=== PATIENT | male | born 1945 | race Caucasian/White ===

== ENCOUNTER 2020-06-06 13:12 | Outpatient (CLI) | payer MEDICARE, SELFPAY ==
--- NOTE | ~2020-06-06 | CT_ITS ---
EXAMINATION: CT chest wo con DATE: 06/06/2020 13:33 INDICATION: Multiple lung nodules TECHNIQUE: Computed tomography (CT) of the chest was performed without intravenous contrast. Automate d exposure control and iterative reconstruction technique were employed. Exam dose: 153.20 mGy-cm to sushila exam DLP. COMPARISON: 12/20/2019 CT chest FINDINGS: There are calcified right paratracheal lymph nodes consistent with old granulomatous diseas e. Coronary artery calcifications. Normal heart size. No pericardial or pleural effusion. No hilar or mediastinal mass lesion or lymphadenopathy. No thoracic aortic aneurysm. There is mild discoid scarring in the right upper lobe and right lower lobe. Moderately severe emphysematous changes are noted. No pulmonary infiltrate or consolidation or suspic ious pulmonary mass lesion is identified. The adrenal glands are unremarkable. IMPRESSION: Moderately severe emphysema; no suspicious pulmonary mass Reviewed, dictated and finalized at [facility]. Reviewed, dictated and finalized at location B.
== END 2020-06-06 13:13 | disposition home or self-care (01) ==
PROVIDERS: PCP Family Medicine; Visit Provider Nurse Practitioner
DX: R91.8 Other nonspecific abnormal finding of lung field (principal); J43.9 Emphysema, unspecified
CPT/HCPCS: 71250

== ENCOUNTER 2021-06-16 10:52 | Outpatient (CLI) | payer MEDICARE, SELFPAY ==
--- NOTE | ~2021-06-16 | CT_ITS ---
EXAMINATION: CT lung screening EXAM DATE: 06/16/2021 11:26 INDICATION: Personal hx of tobacco dependence. TECHNIQUE: Spiral low dose CT of the chest without contrast. Axial, coronal and sagittal images were reviewed. The dose-length product (DLP) for this examination was 180.39 mGy-cm. The exposure was t ailored according to patient size (auto mA exposure control), and iterative reconstruction (ASIR) was used as additional dose reduction technique. Comparison is made to prior examination from 06/06/2020. FINDINGS: There is moderate to severe emphysema. Moderate hyperinflation and bronchiectasis. Some li near right lower lobe scarring. There is 3 mm nodule in the left upper lobe best identified on al l image 53, unchanged consistent with noncalcified granuloma. Tracheobronchial tree is patent. Ther e is no mediastinal, hilar or axillary lymphadenopathy. There are no pleural or pericardial effusio ns. There is no pneumothorax. Heart normal in size. There is moderate coronary arterial calcifi cation, arterial sclerosis. There is hepatic steatosis. There is thoracic spondylosis without osteob lastic or osteolytic lesions identified. IMPRESSION: Lung-RADS category 2, benign appearance or behavior (<1% chance of malignancy); recommend continued LDCT screening in 1 year. Reviewed, dictated and finalized at location A.
== END 2021-06-16 10:53 | disposition home or self-care (01) ==
PROVIDERS: PCP Family Medicine; Visit Provider Nurse Practitioner
DX: Z12.2 Encounter for screening for malignant neoplasm of respiratory organs (principal); Z87.891 Personal history of nicotine dependence
CPT/HCPCS: 71271

== ENCOUNTER 2021-08-28 09:49 | Outpatient (CLI) | payer MEDICARE, SELFPAY ==
--- NOTE | ~2021-08-28 | US_ITS ---
EXAMINATION: US abdomen limited DATE: 08/28/2021 10:40 INDICATION: Other specified abnormal findings of blood chemistry TECHNIQUE: Multiple grayscale and Doppler ultrasound images of the abdomen were obtained. COMPARISON: None available FINDINGS: The head and body of the pancreas are normal. The pancreatic tail is obscured by bowel gas. The liver demonstrates increased echogenicity, heterogenous echotexture, and decreased through trans mission. No surface nodularity. Normal hepatopetal flow in the main portal vein. The gallbladder is n ormal with no abnormal wall thickening, pericholecystic fluid or stones. The normal common bile duct measures 4 mm. There was no sonographic Cuevas sign. IMPRESSION: 1. Diffuse hepatic steatosis. Reviewed, dictated and finalized at location A.
== END 2021-08-28 09:50 | disposition home or self-care (01) ==
PROVIDERS: PCP Family Medicine; Visit Provider Physician Assistant
DX: R79.89 Other specified abnormal findings of blood chemistry (principal); K76.0 Fatty (change of) liver, not elsewhere classified
CPT/HCPCS: 76705

== ENCOUNTER 2022-05-20 14:02 | Outpatient (CLI) | payer MEDICARE, SELFPAY ==
--- NOTE | 2022-05-20 | ECHO_ITS ---
Patient Info Name: Brennon Multani Age: 76 years : 1945 Gender: Male Ht: 72 in Wt: 190 lbs BSA: 2.10 m2 HR: 112 bpm BP: 133 / 78 mmHg Heart Rhythm: Sinus Rhythm Technical Quality: Fair Exam Date: 05/20/2022 2:52 PM Exam Location: [facility] Patient Status: Outpatient Admit Date: 05/20/2022 Staff Ordering Physician: [employer] Teacher: Gemini Erickson RDCS Attending Provider: SantinoMorena Exam Type: CA echo doppler color flow Study Info Indications R06.00 - Dyspnea, unspecified Complete two-dimensional, color flow and Doppler transthoracic echocardiogram is performed. Summary 1. Complete two-dimensional, color flow and Doppler transthoracic echocardiogram is performed. 2. Left ventricular systolic function is normal, estimated at 60-65%. 3. The left ventricular diastolic function is grade I diastolic dysfunction. 4. Right ventricular chamber dimension is normal. 5. The pericardium appears normal. 6. Prominent epicardial fat pad noted. Left Ventricle Left ventricular chamber dimension is normal. Left ventricular systolic function is normal, estimated at 60-65%. The left ventricular diastolic function is grade I diastolic dysfunction. Right Ventricle Right ventricular chamber dimension is normal. Left Atria Normal left atrial dimension. Right Atria Right atrial chamber dimension is normal. Aortic Valve The aortic valve is trileaflet. There is mild aortic valve sclerosis. Pulmonic Valve The pulmonic valve is not well visualized. Mitral Valve The mitral valve has normal leaflets. Tricuspid Valve The tricuspid valve leaflets are normal. Other Findings Prominent epicardial fat pad noted. Pericardium/Pleural The pericardium appears normal. Aorta The aortic root size at the sinus of Valsalva is normal. Left Ventricular Outflow Tract Name Value Normal LVOT 2D LVOT Diameter 2.1 cm LVOT Doppler LVOT Peak Gradient 5 mmHg LVOT Mean Gradient 3 mmHg LVOT VTI 19 cm LVOT VTI/AV VTI Ratio 1.2 LVOT Stroke Volume 64 ml LVOT CO 15.9 l/min LVOT CI 7.6 l/min/m2 Pulmonic Valve Name Value Normal PV Doppler PV Peak Gradient 3 mmHg Mitral Valve Name Value Normal MV Doppler MV Decel Clayton 341 cm/s2 MV PHT 53 ms MV Area (PHT)
== END 2022-05-20 14:03 | disposition home or self-care (01) ==
PROVIDERS: PCP Family Medicine; Visit Provider Nurse Practitioner
DX: R06.09 Other forms of dyspnea (principal); R91.1 Solitary pulmonary nodule
CPT/HCPCS: 93306

== ENCOUNTER 2022-07-19 10:30 | Outpatient (CLI) | payer MEDICARE, SELFPAY ==
--- NOTE | ~2022-07-19 | CT_ITS ---
EXAMINATION: CT diagnostic chest wo con DATE: 07/19/2022 11:07 INDICATION: SOLITARY NODULE OF LUNG TECHNIQUE: Computed tomography (CT) of the chest was performed without intravenous contrast. Addition al 3D reconstructions utilizing coronal maximum intensity projection (MIP) were performed. Automated exposure control and iterative reconstruction technique were employed. The dose-length product was 14 1.33 mGy-cm. COMPARISON: 06/16/2021 FINDINGS: Moderate to severe emphysema. Mild discoid atelectasis in the right lower lobe. No interval change in a few scattered <4 mm calcified and noncalcified pulmonary nodules in both lungs which along with ca lcified right hilar and mediastinal lymph nodes are likely related to old granulomatous disease. No n ew or enlarging pulmonary nodules identified. No pneumonia, pulmonary edema or pleural effusion. Hear t size is normal. No pericardial effusion. Atherosclerotic coronary artery calcification. No patholog ically enlarged thoracic lymphadenopathy. Mild thoracic spondylosis. Nodular liver surface consistent with cirrhosis. Bilateral low-attenuation renal cysts the largest measuring 3.4 cm the upper pole th e right kidney. IMPRESSION: 1. Lung-RADS category 2: Benign appearance or behavior of multiple <4 mm scattered pulmonary nodules. Continue annual screening with noncontrast low-dose chest CT in 12 months. 2. Moderate to severe emphysema. 3. Cirrhosis. Reviewed, dictated and finalized at location A. IMPRESSION: 1. Lung-RADS category 2: Benign appearance or behavior of multiple <4 mm scatte red pulmonary nodules. Continue annual screening with noncontrast low-dose ches t CT in 12 months. 2. Moderate to severe emphysema. 3. Cirrhosis.
== END 2022-07-19 10:31 | disposition home or self-care (01) ==
PROVIDERS: PCP Family Medicine; Visit Provider Nurse Practitioner
DX: R91.1 Solitary pulmonary nodule (principal); K76.0 Fatty (change of) liver, not elsewhere classified; J43.9 Emphysema, unspecified
CPT/HCPCS: 71250

== ENCOUNTER 2022-09-17 12:24 | Outpatient (CLI) | payer MEDICARE, SELFPAY ==
[2022-09-17 13:00] VITALS: PULSE 127; O2SAT 86
[2022-09-17 13:03] VITALS: PULSE 133; O2SAT 94
[2022-09-17 13:05] VITALS: PULSE 157; O2SAT 86
[2022-09-17 13:06] VITALS: PULSE 158; O2SAT 89
[2022-09-17 13:08] VITALS: PULSE 139; O2SAT 93
--- NOTE | 2022-09-17 13:35 | HOMEO2EVAL ---
Evaluation was performed at [facility] Home Oxygen Evaluation RC: Home Oxygen (O2) Evaluation Start: 09/17/22 13:31 Freq: Status: Active Protocol: RPE Activity Type Activity Date Activity User E-sign Co-sign Detail Recorded Client Recorded Date Recorded By Document 09/17/22 13:00 ELIDA [email or web address] 09/17/22 13:35 ELIDA Document 09/17/22 13:03 ELIDA [email or web address] 09/17/22 13:35 ELIDA Document 09/17/22 13:05 ELIDA [email or web address] 09/17/22 13:35 ELIDA Document 09/17/22 13:06 ELIDA [id number] 09/17/22 13:35 ELIDA Document 09/17/22 13:08 ELIDA [email or web address] 09/17/22 13:35 ELIDA 09/17/22 09/17/22 09/17/22 13:00 13:03 13:05 Home O2 Evaluation [Oxygen] -Test Phase Resting Resting Exercise -Oxygen Delivery Room Air Nasal Cannula Nasal Cannula -Oxygen Flow Rate (L/min) 3 3 [Pulse Oximetry] -Pulse Oximetry (90-100 %) 86 L 94 86 L [Pulse Rate] -Pulse Rate (60-100 beats/min) 127 H 133 H 157 H [Evaluation] -Activity Tolerance [Exercise] -Ambulation Distance (feet) -Ambulation Distance (meters) [Comments] -Home Oxygen Evaluation Comments [Charges] -Treatment Charges O2 Evaluation - Outpatient 09/17/22 09/17/22 13:06 13:08 Home O2 Evaluation [Oxygen] -Test Phase Exercise Resting -Oxygen Delivery Nasal Cannula Nasal Cannula -Oxygen Flow Rate (L/min) 35 3 [Pulse Oximetry] -Pulse Oximetry (90-100 %) 89 L 93 [Pulse Rate] -Pulse Rate (60-100 beats/min) 158 H 139 H [Evaluation] -Activity Tolerance Fair [Exercise] -Ambulation Distance (feet) 350 -Ambulation Distance (meters) 106.67 [Comments] -Home Oxygen Evaluation Comments Pt walked for approx 3 minutes. Pt requires 3 L at rest and 5 L with exertion. [Charges] -Treatment Charges
--- NOTE | 2022-09-17 13:35 | PCRCNOTE ---
Home O2 eval faxed. Pt heart rate elevated. No changes to current O2 settings, 5L with exertion. [facility]
== END 2022-09-17 12:25 | disposition home or self-care (01) ==
PROVIDERS: PCP Family Medicine; Visit Provider Nurse Practitioner
DX: J44.9 Chronic obstructive pulmonary disease, unspecified (principal)
CPT/HCPCS: 94618

== ENCOUNTER 2022-12-29 09:26 | Outpatient (CLI) | payer MEDICARE, SELFPAY ==
[2022-12-29 11:58] LABS: Basophils Absolute Auto 0.2 K/mm3 (0.0-0.1); Basophils Percent Auto 2.2 % (0.2-1.2); Eosinophils Absolute Auto 0.3 K/mm3 (0-0.3); Eosinophils Percent Auto 3.4 % (0-4.4); Hemoglobin 8.2 g/dL (14.0-18.0); Immature Granulocyte Absolute 0.03 K/mm3 (0.00-0.031); Immature Granulocyte Percent A 0.3 % (0-0.5); Lymphocytes Absolute Auto 2.03 K/mm3 (0.9-3.2); Lymphocytes Percent Auto 23.5 % (18.3-44.2); Mean Corpuscular HGB Conc 27.3 g/dl (32-36); Mean Corpuscular Hemoglobin 21.2 pg (26-34); Mean Corpuscular Volume 77.5 fl (80-100); Mean Platelet Volume 11.1 fl (7.4-10.4); Monocytes Percent Auto 11.1 % (2.6-8.5); Neutrophils Absolute Auto 5.2 K/mm3 (1.3-6.7); Neutrophils Percent Auto 59.5 % (45.5-73.1); Platelet Count Result 262 k/mm3 (150-375); Red Blood Count 3.87 M/mm3 (4.6-6.20); White Blood Count 8.7 K/mm3 (4.5-10.0)
[2022-12-29 13:08] LABS: Iron 16 ug/dL (49-181)
[2022-12-29 13:14] LABS: Anisocytosis 1+ (NORMAL); Hypochromasia 1+ (NORMAL); Ovalocytes 1+ (NORMAL); Platelet Estimate Adequate (Adequate); Schistocytes None Seen (NORMAL)
[2022-12-29 13:18] LABS: Percent Iron Saturation 4 % (20-50)
[2022-12-29 14:50] LABS: Folic Acid 9.9 ng/mL (2.76->20)
== END 2022-12-29 09:27 | disposition home or self-care (01) ==
LOC: ANHLAB 09:26
PROVIDERS: PCP Family Medicine; Visit Provider Physician Assistant
DX: D64.9 Anemia, unspecified (principal)
CPT/HCPCS: 36415; 82607; 82728; 82746; 83540; 83550; 85025

== ENCOUNTER 2023-02-15 11:11 | Outpatient (CLI) | payer MEDICARE, SELFPAY ==
[2023-02-15 11:39] LABS: Basophils Absolute Auto 0.1 K/mm3 (0.0-0.1); Basophils Percent Auto 1.7 % (0.2-1.2); Eosinophils Absolute Auto 0.3 K/mm3 (0-0.3); Eosinophils Percent Auto 4.7 % (0-4.4); Hematocrit 42.9 % (42.0-52.0); Hemoglobin 13.1 g/dL (14.0-18.0); Immature Granulocyte Absolute 0.02 K/mm3 (0.00-0.031); Immature Granulocyte Percent A 0.3 % (0-0.5); Lymphocytes Absolute Auto 1.31 K/mm3 (0.9-3.2); Lymphocytes Percent Auto 19.8 % (18.3-44.2); Mean Corpuscular HGB Conc 30.5 g/dl (32-36); Mean Corpuscular Hemoglobin 28.4 pg (26-34); Mean Corpuscular Volume 93.1 fl (80-100); Mean Platelet Volume 10.3 fl (7.4-10.4); Monocytes Absolute Auto 0.7 K/mm3 (0.1-0.6); Monocytes Percent Auto 11.2 % (2.6-8.5); Neutrophils Absolute Auto 4.1 K/mm3 (1.3-6.7); Neutrophils Percent Auto 62.3 % (45.5-73.1); Platelet Count Result 245 k/mm3 (150-375); Red Blood Count 4.61 M/mm3 (4.6-6.20); Red Cell Distribution Width 21.8 % (11.5-14.5); White Blood Count 6.6 K/mm3 (4.5-10.0)
[2023-02-15 12:07] LABS: Alanine Aminotransferase 36 U/L (6-50); Albumin Level 3.7 g/dL (3.5-5.1); Alkaline Phosphatase 301 U/L (38-126); Anion Gap 6 mmol/L (8-16); Aspartate Amino Transferase 103 U/L (17-59); Bilirubin,Total 0.9 mg/dL (0.2-1.3); Blood Urea Nitrogen 4 mg/dL (9-20); Calcium 8.4 mg/dL (8.4-10.2); Carbon Dioxide 30 mmol/L (22-30); Chloride 104 mmol/L (98-107); Estimated Glomerular Filt Rate > 60; Glucose 86 mg/dL (65-110); Potassium 4.3 mmol/L (3.4-5.0); Sodium 140 mmol/L (137-145)
[2023-02-15 12:30] LABS: Iron 62 ug/dL (49-181)
[2023-02-15 12:40] LABS: Percent Iron Saturation 17 % (20-50)
== END 2023-02-15 11:12 | disposition home or self-care (01) ==
LOC: ANHLAB 11:13
PROVIDERS: PCP Family Medicine; Visit Provider Physician Assistant
DX: D50.9 Iron deficiency anemia, unspecified (principal); K76.0 Fatty (change of) liver, not elsewhere classified
CPT/HCPCS: 36415; 80053; 82728; 83540; 83550; 85025

== ENCOUNTER 2023-05-23 12:19 | Outpatient (CLI) | payer MEDICARE, SELFPAY ==
[2023-05-23 12:37] LABS: Basophils Absolute Auto 0.1 K/mm3 (0.0-0.1); Basophils Percent Auto 1.3 % (0.2-1.2); Eosinophils Absolute Auto 0.2 K/mm3 (0-0.3); Eosinophils Percent Auto 1.8 % (0-4.4); Hematocrit 48.2 % (42.0-52.0); Hemoglobin 15.7 g/dL (14.0-18.0); Immature Granulocyte Absolute 0.02 K/mm3 (0.00-0.031); Immature Granulocyte Percent A 0.2 % (0-0.5); Lymphocytes Absolute Auto 0.73 K/mm3 (0.9-3.2); Lymphocytes Percent Auto 8.9 % (18.3-44.2); Mean Corpuscular HGB Conc 32.6 g/dl (32-36); Mean Corpuscular Hemoglobin 34.9 pg (26-34); Mean Corpuscular Volume 107.1 fl (80-100); Mean Platelet Volume 9.8 fl (7.4-10.4); Monocytes Absolute Auto 0.7 K/mm3 (0.1-0.6); Monocytes Percent Auto 8.4 % (2.6-8.5); Neutrophils Absolute Auto 6.5 K/mm3 (1.3-6.7); Neutrophils Percent Auto 79.4 % (45.5-73.1); Platelet Count Result 195 k/mm3 (150-375); Red Cell Distribution Width 13.2 % (11.5-14.5); White Blood Count 8.2 K/mm3 (4.5-10.0)
[2023-05-23 12:47] LABS: Alanine Aminotransferase 61 U/L (6-50); Alkaline Phosphatase 255 U/L (38-126); Anion Gap 4 mmol/L (8-16); Aspartate Amino Transferase 157 U/L (17-59); Bilirubin,Total 1.9 mg/dL (0.2-1.3); Blood Urea Nitrogen 8 mg/dL (9-20); Calcium 8.6 mg/dL (8.4-10.2); Carbon Dioxide 34 mmol/L (22-30); Chloride 101 mmol/L (98-107); Estimated Glomerular Filt Rate > 60; Glucose 113 mg/dL (65-110); Potassium 3.9 mmol/L (3.4-5.0); Sodium 139 mmol/L (137-145)
== END 2023-05-23 12:20 | disposition home or self-care (01) ==
LOC: ANHLAB 12:21
PROVIDERS: PCP Family Medicine; Visit Provider Physician Assistant
DX: E03.9 Hypothyroidism, unspecified (principal); D64.9 Anemia, unspecified
CPT/HCPCS: 36415; 80053; 84443; 85025

== ENCOUNTER 2023-06-01 12:38 | Outpatient (CLI) | payer MEDICARE, SELFPAY ==
--- NOTE | ~2023-06-01 | CT_ITS ---
EXAMINATION: CT diagnostic chest wo con DATE: 06/01/2023 13:00 INDICATION: SOLITARY NODULE OF LUNG TECHNIQUE: Computed tomography (CT) of the chest was performed without intravenous contrast. Addition al 3D reconstructions utilizing coronal maximum intensity projection (MIP) were performed. Automated exposure control and iterative reconstruction technique were employed. The dose-length product was 15 8.97 mGy-cm. COMPARISON: 07/19/2022 FINDINGS: Severe emphysema. Unchanged discoid atelectasis/scarring in the right lower lobe. New 5 mm left upper lobe nodule. No interval change in a few additional <4 mm calcified and noncalcified pulmonary nodul es which along with calcified mediastinal and right hilar lymph nodes are likely related to old granu lomatous disease. No pneumonia, pulmonary edema or pleural effusion. Heart size is normal. No pericar dial effusion. Atherosclerotic coronary artery calcification. Thoracic aorta is normal in caliber. No pathologically enlarged thoracic lymphadenopathy. Shrunken cirrhotic liver with nodular surface cont our. 3 cm low-attenuation cyst at the upper pole the left kidney. Mild thoracic spondylosis. IMPRESSION: 1. Lung-RADS category 3: Probably benign. Further evaluation is recommended with noncontrast low-dose chest CT in 6 months. 2. Severe emphysema. 3. Cirrhosis. Reviewed, dictated and finalized at location B. IMPRESSION: 1. Lung-RADS category 3: Probably benign. Further evaluation is recommended wit h noncontrast low-dose chest CT in 6 months. 2. Severe emphysema. 3. Cirrhosis.
== END 2023-06-01 12:39 | disposition home or self-care (01) ==
PROVIDERS: PCP Family Medicine; Visit Provider Nurse Practitioner
DX: R91.1 Solitary pulmonary nodule (principal); J43.9 Emphysema, unspecified; K74.60 Unspecified cirrhosis of liver
CPT/HCPCS: 71250

== ENCOUNTER 2023-07-01 09:09 | Outpatient (CLI) | payer MEDICARE, SELFPAY ==
[2023-07-01 09:37] LABS: Hemoglobin 16.5 g/dL (14.0-18.0); Mean Corpuscular Volume 105.9 fl (80-100); Mean Platelet Volume 9.8 fl (7.4-10.4); Platelet Count Result 149 k/mm3 (150-375); Red Blood Count 4.72 M/mm3 (4.6-6.20); Red Cell Distribution Width 12.9 % (11.5-14.5); White Blood Count 6.2 K/mm3 (4.5-10.0)
[2023-07-01 09:49] LABS: Alanine Aminotransferase 41 U/L (6-50); Alkaline Phosphatase 230 U/L (38-126); Anion Gap 6 mmol/L (8-16); Aspartate Amino Transferase 99 U/L (17-59); Bilirubin,Total 1.6 mg/dL (0.2-1.3); Blood Urea Nitrogen 10 mg/dL (9-20); Calcium 8.8 mg/dL (8.4-10.2); Carbon Dioxide 29 mmol/L (22-30); Chloride 102 mmol/L (98-107); Estimated Glomerular Filt Rate > 60; Glucose 92 mg/dL (65-110); Potassium 3.7 mmol/L (3.4-5.0); Sodium 137 mmol/L (137-145)
== END 2023-07-01 09:10 | disposition home or self-care (01) ==
LOC: ANHLAB 09:10
PROVIDERS: PCP Family Medicine; Visit Provider Family Medicine
DX: D64.9 Anemia, unspecified (principal); K76.0 Fatty (change of) liver, not elsewhere classified
CPT/HCPCS: 36415; 80053; 85027

== ENCOUNTER 2023-10-06 09:47 | Outpatient (CLI) | payer MEDICARE, SELFPAY ==
[2023-10-06 10:18] LABS: Basophils Absolute Auto 0.1 K/mm3 (0.0-0.1); Basophils Percent Auto 1.7 % (0.2-1.2); Eosinophils Absolute Auto 0.3 K/mm3 (0-0.3); Eosinophils Percent Auto 4.3 % (0-4.4); Hemoglobin 11.9 g/dL (14.0-18.0); Immature Granulocyte Absolute 0.01 K/mm3 (0.00-0.031); Immature Granulocyte Percent A 0.2 % (0-0.5); Lymphocytes Absolute Auto 1.48 K/mm3 (0.9-3.2); Lymphocytes Percent Auto 25.2 % (18.3-44.2); Mean Corpuscular HGB Conc 30.5 g/dl (32-36); Mean Corpuscular Hemoglobin 30.3 pg (26-34); Mean Corpuscular Volume 99.2 fl (80-100); Mean Platelet Volume 10.1 fl (7.4-10.4); Monocytes Absolute Auto 0.5 K/mm3 (0.1-0.6); Neutrophils Absolute Auto 3.5 K/mm3 (1.3-6.7); Neutrophils Percent Auto 59.6 % (45.5-73.1); Platelet Count Result 165 k/mm3 (150-375); Red Blood Count 3.93 M/mm3 (4.6-6.20); Red Cell Distribution Width 13.4 % (11.5-14.5); White Blood Count 5.9 K/mm3 (4.5-10.0)
== END 2023-10-06 09:48 | disposition home or self-care (01) ==
PROVIDERS: PCP Family Medicine; Visit Provider Family Medicine
DX: E03.9 Hypothyroidism, unspecified (principal); D50.9 Iron deficiency anemia, unspecified
CPT/HCPCS: 36415; 84443; 85025

== ENCOUNTER 2023-11-10 05:58 | Inpatient (IN) | payer MEDICARE, SELFPAY ==
[2023-11-10] VITALS (15 sets, daily range): BP systolic 100–128; BP diastolic 53–71; PULSE 91–117; RESP 14–22; TEMP 36.1–36.5; O2SAT 96–100; BMI 25.7
--- NOTE | ~2023-11-10 | XR_ITS ---
XR chest 1V portable 11/12/2023 10:22 Indication: Tachycardia. Dyspnea. Procedure: AP portable chest Comparison: 11/10/2023 Findings: There is stable focal airspace disease of the right mid thorax. The lungs are hyperinflated which is consistent with, but not diagnostic of chronic obstructive pulmonary disease. Heart size no rmal. Impression: 1: Stable focal airspace disease right midlung, compatible with pneumonia. Reviewed, dictated and finalized at location A. OGRAPHER APPRENTICE Impression: 1: Stable focal airspace disease right midlung, compatible with pneumonia.
--- NOTE | ~2023-11-10 | XR_ITS ---
EXAMINATION: XR chest 1V portable INDICATION: Bronchoscopy planning TECHNIQUE: Portable AP chest at 0906 hours COMPARISON: 11/14/2023 FINDINGS: A right upper extremity PICC ends with its tip in the proximal superior vena cava. There ar e patchy airspace opacities of the lung bases. No pleural effusion or pneumothorax. The cardiomediast inal silhouette is stable. IMPRESSION: 1. Patchy airspace opacities of the lung bases, consistent with atelectasis versus pneumonia. Reviewed, dictated and finalized at location D. FORM SOFTWARE ENGINEER IMPRESSION: 1. Patchy airspace opacities of the lung bases, consistent with atelectasis [place] arian pneumonia.
--- NOTE | ~2023-11-10 | XR_ITS ---
Portable chest x-ray Comparison: 11/13/2013 Clinical History: Respiratory failure Findings: There is mild patchy haziness in the right lower lobe. Underlying COPD pattern present. C ardiomediastinal silhouette is stable. Bones and soft tissues are unremarkable. Impression: Mild patchy haziness right lower lobe. Correlate for pneumonia. Underlying advanced COPD. Reviewed, dictated and finalized at location . ORATE DIRECTOR Impression: Mild patchy haziness right lower lobe. Correlate for pneumonia. Underlying advanced COPD.
--- NOTE | ~2023-11-10 | CT_ITS ---
CT of the Abdomen and Pelvis: Indication: Abdominal pain Technique: 2.5 mm axial scans were obtained through the abdomen and pelvis following intravenous adm inistration of 100 cc of Omnipaque 350. Dose reduction technique was used on this scan by utilizing a utomated exposure control and iterative reconstruction technique. The dose-length product (DLP) was 6 32.81 mGy-cm. Findings: Scans through the lung bases demonstrate moderate to advanced emphysema. There is bronchio lectasis at the right lung base. Patchy peripheral airspace consolidation could reflect atelectasis o r possibly pneumonia... Nodular contour of liver is compatible with cirrhotic change. The spleen, pancreas, gallbladder, adre nals and kidneys are within normal limits. There are atherosclerotic calcifications of the aorta. No lymphadenopathy. Small amount of abdominopelvic ascites present. No bowel obstruction or bowel wall thickening. There is no evidence to suggest acute appendicitis. Images through the pelvis were performed. There is a 2.1 cm mass arising from the superior aspect of the urinary bladder, intraluminal (axial image 139, sagittal image 78 for example).. Prostate gland a nd seminal vesicles are unremarkable. Impression: 2.1 cm intraluminal urinary bladder mass arising from the superior wall, as detailed above. This is s uspicious for bladder carcinoma until proven otherwise. Cystoscopy recommended for further evaluation . Cirrhotic change of the liver with small amount of abdominopelvic ascites. Patchy peripheral airspace consolidation at the right lung base could reflect atelectasis versus pneu monia. Correlate clinically. Underlying emphysema at the lung bases. Reviewed, dictated and finalized at location M. NLESS STEEL FINISHER Impression: 2.1 cm intraluminal urinary bladder mass arising from the superior wall, as det derrick above. This is suspicious for bladder carcinoma until proven otherwise. C ystoscopy recommended for further evaluation. Cirrhotic change of the liver with small amount of abdominopelvic ascites. Patchy peripheral airspace consolidation at the right lung base could reflect a telectasis versus pneumonia. Correlate clinically. Underlying emphysema at the lung bases.
--- NOTE | ~2023-11-10 | XR_ITS ---
EXAMINATION: XR abdomen obstructive series DATE: 11/12/2023 11:12 INDICATION: Abdominal pain and discomfort TECHNIQUE: Supine and upright views of the abdomen. FINDINGS: No prior studies for comparison. The visualized lung parenchyma is normal.. There is a nonobstructive bowel gas pattern. Gas and stool are seen throughout the colon to the level of the rectum. There is no free air. There is mild lumba r spondylosis. IMPRESSION: 1. No acute abdominal abnormality. Reviewed, dictated and finalized at location A. RY DRILLER
--- NOTE | ~2023-11-10 | XR_ITS ---
Portable chest x-ray Comparison: None Clinical History: Shortness of breath Findings: There is mild haziness at the right lung base. There is underlying COPD. Cardiomediastina l silhouette is stable. Bones and soft tissues are unremarkable. Impression: Hazy right lower lobe airspace disease, suspicious for pneumonia. Underlying COPD. Reviewed, dictated and finalized at location . HOISTER Impression: Hazy right lower lobe airspace disease, suspicious for pneumonia. Underlying COPD.
--- NOTE | ~2023-11-10 | XR_ITS ---
XR chest PICC line 11/12/2023 11:39 Indication: PICC line placement Procedure: AP portable chest Comparison: Comparison to multiple prior studies sequentially, with oldest reviewed study dated 10/28. Findings: Heart size normal. PICC line tip in the SVC. Progression of diffuse bilateral airspace dise ase which may represent edema or pneumonia. No pneumothorax. No acute osseous abnormality. Impression: 1: Interval progression of diffuse bilateral airspace disease which may represent edema or pneumonia. Reviewed, dictated and finalized at location A. SORTER Impression: 1: Interval progression of diffuse bilateral airspace disease which may represe nt edema or pneumonia.
--- NOTE | ~2023-11-10 | CT_ITS ---
EXAMINATION: CTA chest PE abdomen pel DATE: 11/12/2023 15:38 INDICATION: Respiratory failure, abdominal pain TECHNIQUE: Computed tomography angiography (CTA) of the chest was performed with 100 mL Omnipaque-350 intravenous contrast timed to evaluate the pulmonary arteries, followed by portal venous phase imagi ng of the abdomen and pelvis. Coronal maximum intensity projection 3D-reconstructions were created by the technologist. The dose-length product (DLP) was 1547.10 mGy-cm. Automated exposure control and i terative reconstruction technique were employed. COMPARISON: CT chest 06/01/2023; CT abdomen and pelvis 11/10/2023. FINDINGS: CHEST: Lung parenchyma and airways: 1.4 x 0.6 cm nodule in the distal left mainstem bronchus, not present in the prior chest CT. The remaining airways are clear. Emphysematous change. Subsegmental dependent co nsolidation in the right upper lobe. Subsegmental linear and somewhat nodular opacities in the periph eral and dependent right lower lobe. Stable medial left upper lobe nodule. Minimal dependent atelecta sis in the left lung. Pleura: Very small volume right pleural fluid, with some degree of pleural retraction adjacent to the right lung opacities. Thoracic inlet, axillae and chest wall: Right upper extremity PICC terminating in the SVC. Thoracic aorta: Mild arch calcification. Mediastinum: Right hilar lymphadenopathy. Heart and pericardium: Normal. Coronary artery calcifications: Mild. Thoracic bones: No acute osseous finding. Pulmonary arteries: Study quality: Adequate. No pulmonary emboli detected. ABDOMEN/PELVIS: Liver: Nodular liver. Biliary/Gallbladder: Mild nonspecific pericholecystic fluid. No bile duct dilation. Pancreas: Mild atrophy Spleen: Normal. Adrenals:No mass. Kidneys: No suspicious mass, obstructing stone, or hydronephrosis. Multiple bilateral simple renal cy sts. GI tract: Small duodenal lipoma. No small or large bowel dilation. Normal appendix. Mesentery/Peritoneum: Small volume ascites. No mass or free air.. Retroperitoneum: No mass. Atherosclerotic abdominal aortic and/or arterial calcifications. Pelvis: The urinary bladder is decompressed by Singletary catheter. Soft Tissues: Soft tissues and body wall unremarkable. Abdominopelvic bones: No acute osseous finding. IMPRESSION: No CT evidence of acute pulmonary embolus. 1.4 x 0.6 cm endobronchial lesion in the distal left mainstem bronchus, which is a new finding since the chest CT of 06/01/2023. Consider bronchoscopy. Subsegmental right upper lobe and right lower lobe opacities, likely atelectasis or infection, with t race right pleural effusion and right hilar lymphadenopathy. Consider follow-up CT to ensure resoluti on. Stable medial left upper lobe pulmonary nodule, recommend reassessment at the above recommended follo w-up CT. Cirrhosis. Small volume ascites. Small volume pericholecystic fluid, a nonspecific finding in the setting of chronic liver disease. The previously described bladder mass was not visualized due to an empty urinary bladder. Reviewed, dictated and finalized at location K. ICAL INFORMATION SYSTEMS DIRECTOR IMPRESSION: No CT evidence of acute pulmonary embolus. 1.4 x 0.6 cm endobronchial lesion in the distal left mainstem bronchus, which i s a new finding since the chest CT of 06/01/2023. Consider bronchoscopy. Subsegmental right upper lobe and right lower lobe opacities, likely atelectasi s or infection, with trace right pleural effusion and right hilar lymphadenopat hy. Consider follow-up CT to ensure resolution. Stable medial left upper lobe pulmonary nodule, recommend reassessment at the a nicho recommended follow-up CT. Cirrhosis. Small volume ascites. Small volume pericholecystic fluid, a nonspecific find
--- NOTE | ~2023-11-10 | XR_ITS ---
XR chest 1V portable 11/13/2023 06:26 Indication: Respiratory failure Procedure: AP portable chest Comparison: Comparison to multiple prior studies sequentially, with oldest reviewed study dated 10/28. Findings: Heart size normal. There is unchanged bibasilar airspace disease, consistent with pneumonia , superimposed on emphysema. Impression: 1: Stable bibasilar airspace disease, consistent with pneumonia. 2: Emphysema. Reviewed, dictated and finalized at location A. UCT MARKETING MANAGER Impression: 1: Stable bibasilar airspace disease, consistent with pneumonia. 2: Emphysema.
--- NOTE | 2023-11-10 06:02 | ECG_ITS ---
Measurements Intervals [place] Rate: 99 P: 75 GA: 162 QRS: -7 QRSD: 153 T: 64 QT: 417 QTc: 536 Interpretive Statements SINUS RHYTHM RIGHT BUNDLE BRANCH BLOCK [120+ ms QRS DURATION, UPRIGHT V1, 40+ ms S IN I/aVL/V4/V5/V6] ABNORMAL ECG NO PREVIOUS ECG AVAILABLE FOR COMPARISON Electronically Signed On 11-10-2023 14:01:47 MANUSCRIPT EDITOR by Ulysses Cool M.D.
[2023-11-10 06:18] LABS: Basophils Absolute Auto 0.1 K/mm3 (0.0-0.1); Eosinophils Absolute Auto 0.2 K/mm3 (0-0.3); Eosinophils Percent Auto 1.6 % (0-4.4); Hemoglobin 12.5 g/dL (14.0-18.0); Immature Granulocyte Absolute 0.04 K/mm3 (0.00-0.031); Immature Granulocyte Percent A 0.4 % (0-0.5); Lymphocytes Absolute Auto 1.12 K/mm3 (0.9-3.2); Lymphocytes Percent Auto 11.4 % (18.3-44.2); Mean Corpuscular HGB Conc 31.3 g/dl (32-36); Mean Corpuscular Hemoglobin 30.9 pg (26-34); Mean Platelet Volume 10.8 fl (7.4-10.4); Monocytes Absolute Auto 0.8 K/mm3 (0.1-0.6); Monocytes Percent Auto 7.8 % (2.6-8.5); Neutrophils Absolute Auto 7.6 K/mm3 (1.3-6.7); Neutrophils Percent Auto 77.8 % (45.5-73.1); Platelet Count Result 463 k/mm3 (150-375); Red Blood Count 4.04 M/mm3 (4.6-6.20); Red Cell Distribution Width 17.4 % (11.5-14.5); White Blood Count 9.8 K/mm3 (4.5-10.0)
--- NOTE | 2023-11-10 06:19 | ED.GENADULT ---
HPI - General Adult General Chief complaint: GI Bleed <Brando Ty MD - Last Filed: 11/10/23 06:21> Stated complaint: Tarry stools <Brando Ty MD - Last Filed: 11/10/23 06:21> Time Seen by Provider: 11/10/23 06:08 <Brando Ty MD - Last Filed: 11/10/23 06:21> History of Present Illness HPI narrative: patient is a 78-year-old gentleman who presents emergency department with chief complaint of black tarry stools. Patient reports that he had several very loose bowel movements that he had difficulty controlling and reports that they are very black patient reports he has had problems with anemia and reports that he is not on any blood thinners denies being on anti-platelet therapy other than baby aspirin. Patient states that he has history of COPD and is normally on 5 L of oxygen <Brando Ty MD - Last Filed: 11/10/23 06:21> Related Data Home medications: Home Medications Medication Instructions Recorded Confirmed aspirin 81 mg tablet,delayed 81 mg PO DAILY 12/11/19 10/10/23 release <Brando Ty MD - Last Filed: 11/10/23 06:21> Allergies/adverse reactions: Allergies Allergy/AdvReac Type Severity Reaction Status Date / Time No Known Allergies Allergy Verified 10/10/23 11:13 <Brando Ty MD - Last Filed: 11/10/23 06:21> Review of Systems Review of Systems: A 10 system review of systems was completed on the patient and is negative except for what is stated in the HPI. Nursing and ancillary documentation was reviewed. <Brando Ty MD - Last Filed: 11/10/23 06:21> [facility] Past Medical History Medical History: Medical History Iron deficiency anemia Supplemental oxygen dependent <Brando Ty MD - Last Filed: 11/10/23 06:21> Family History Family History: Family History Mother Carcinoma of colon <Brando yT MD - Last Filed: 11/10/23 06:21> Social History Social History: Social History Social History: Smoking packs per day: 2 Smoking cigarettes per day: 40.0 Years smoked: 50 Smoking pack-years: 100.00 Smoking status: Smoker, status unknown (Pt still vapes) Tobacco type: cigarettes and e-cigarettes/vaping Second hand tobacco smoke exposure: No Smoking end date: 11/28/11 Additional smoking assessment comments: Pt is still vaping. Alcohol intake: current Drinks per week: 14 Alcohol use details: Pt just drinks Whiskey. 7 shots a day, throughout the day. Substance use: never Substance use type: does not use Lack of Transportation: No Lack of Food: Never True Current Housing: I Have Housing Concerned About Future Housing: No Difficulty Paying Gas/Electric Bills: No Difficulty Paying for Meds: No Currently Unemployed: YES Education: Decline to Answer Difficulty w/ Childcare or Family Care: No Living arrangements: with family Occupation/Education: retired Gender identity (if verbalized by the patient): Male Sexual Orientation (if Verbalized by the Patient): Straight or Heterosexual <Brando Ty MD - Last Filed: 11/10/23 06:21> Exam Narrative: GENERAL: Well-appearing, well-nourished, and in no acute distress. HEAD: Normocephalic, atraumatic. EYES: PERRLA and EOMI. ENT: Nares clear, no rhinorrhea or epistaxis. Mucous membranes moist. NECK: Supple. CHEST: Clear to auscultation. No respiratory distress. HEART: Regular rate and rhythm. No murmur heard. Normal peripheral pulses. ABDOMEN: Soft, tenderness to palpation of the left lower quadrant, nondistended, normal active bowel sounds. : Stool is black and guaiac positive EXTREMITIES: Normal range of motion. No edema. SKIN
[2023-11-10 06:29] LABS: INR 1.2
[2023-11-10 06:30] LABS: Partial Thromboplastin Time 42.7 SECONDS (22.3-36.8)
[2023-11-10 06:34] LABS: Alanine Aminotransferase 63 U/L (6-50); Albumin Level 3.3 g/dL (3.5-5.1); Alkaline Phosphatase 282 U/L (38-126); Anion Gap 15 mmol/L (8-16); Aspartate Amino Transferase 197 U/L (17-59); Bilirubin,Total 1.8 mg/dL (0.2-1.3); Blood Urea Nitrogen 8 mg/dL (9-20); Calcium 8.1 mg/dL (8.4-10.2); Carbon Dioxide 28 mmol/L (22-30); Chloride 93 mmol/L (98-107); Estimated CRCL calculation 61 ml/min; Estimated Glomerular Filt Rate > 60; Glucose 104 mg/dL (65-110); Potassium 2.8 mmol/L (3.4-5.0); Sodium 136 mmol/L (137-145)
[2023-11-10] MEDS: SODIUM CHLORIDE 0.9% IV 1,000 ML 999 ML IV CONT (07:15)
[2023-11-10] MEDS: PANTOPRAZOLE SODIUM IV 40 MG VIAL IV PUSH (07:19)
[2023-11-10] MEDS: KCL 20 MEQ/SW 100 ML 100 ML 50 MEQ IVPB (08:09)
--- NOTE | 2023-11-10 11:30 | PC.NURSE ---
Clear liquid diet lunch ordered for patient
--- NOTE | 2023-11-10 12:51 | PM.IMHP ---
H&P: HPI History of Present Illness Date/Time: 11/10/23 12:50 Chief Complaint: Dark stools. Narrative: This is a pleasant 78-year-old male with history of alcohol abuse (1/5 of whiskey a day), iron deficiency anemia, gastroesophageal reflux disease, cirrhotic changes of the liver noted on CT with history of reactive hepatitis C screening, chronic obstructive pulmonary disease on oxygen, hypothyroidism, hypertension, and hyperlipidemia who presented to the emergency department via EMS from home for evaluation of dark stools. The patient provides the following history. He reports multiple episodes of dark tarry stools each day for the last several days. Several times he has been incontinent of stool as it seems to come on quite rapidly. He is otherwise feeling in his usual state of health which is not great. He is chronically on 5 L nasal cannula and has chronic dyspnea with minimal exertion. He denies syncope, near syncope, chest pain, pleuritic pain, epigastric and abdominal pain, hematemesis, bloating, and belching. He takes a baby aspirin daily but denies NSAID use. No known history of peptic ulcers. He drinks heavily as detailed above. Review of Systems Review of Systems: Twelve systems were reviewed. No fever, chills, or sweats. Denies cold and flu symptoms. Endorses chronic smoker's cough which is unchanged. Denies sick contacts. No history of alcohol withdrawal symptoms or seizure. Denies hematuria. Except as documented, all other systems were reviewed and are negative. [facility] Past Medical History Medical History (Updated 11/10/23 @ 18:46 by Roselia Brewer PA-C) Alcohol abuse Chronic obstructive pulmonary disease 100+ pack-year history. Cirrhosis Cirrhotic changes of the liver noted on CT. Hepatitis C Hypothyroidism Iron deficiency anemia Mixed hyperlipidemia Supplemental oxygen dependent Surgical History Surgical History History of colonoscopy with polypectomy History of right inguinal hernia repair Family History Family History Mother Carcinoma of colon Social History Social History (Updated 11/10/23 @ 18:38 by Roselia Brewer PA-C) Social History: Surrogate medical decision maker: Anisa Larad, daughter. Code status: Full code. Smoking packs per day: 2 Smoking cigarettes per day: 40.0 Years smoked: 50 Smoking pack-years: 100.00 Smoking status: Former smoker Second hand tobacco smoke exposure: No Additional smoking assessment comments: Pt is still vaping. Alcohol intake: never Drinks per week: 3 Alcohol use details: A 5th of whiskey a day. Substance use: never Substance use type: does not use Lack of Transportation: No Lack of Food: Never True Current Housing: I Have Housing Concerned About Future Housing: No Difficulty Paying Gas/Electric Bills: No Difficulty Paying for Meds: No Currently Unemployed: No Education: High School Diploma/GED Difficulty w/ Childcare or Family Care: No Living arrangements: alone Additional living arrangements comments: . Lives alone in [place]. Occupation/Education: retired Additional occupation/education comments: Retired from [employer]. Spiritual care concerns: No Meds Home Medications and Allergies Home Medications Medication Instructions Recorded Confirmed Type eszopiclone 3 mg tablet 3 mg HS 11/10/23 11/10/23 History famotidine 40 mg tablet 40 mg DAILY 11/10/23 11/10/23 History ferrous sulfate 325 mg (65 mg 325 mg EVERY OTHER DAY 11/10/23 11/10/23 History iron) tablet fluticasone fur. 100 mcg-umeclid 1 ea DAILY 11/10/23 11/10/23 History 62.5 mcg-vilant 25 mcg inhalat.powder (Trelegy Ellipta) levothyroxine 88 mcg tablet 88 mcg DAILY 11/10/23 11/10/23 History rosuvastatin 10 mg tablet 10 mg DAILY 11/10/23 11/10/23 History Allergies Allergy/AdvR
--- NOTE | 2023-11-10 13:30 | PC.NURSE ---
LILLIANA Abreu called for report on pt. States room is ready and he can come up to the floor.
--- NOTE | 2023-11-10 13:45 | ADMGEN ---
This patient, Brennon Multani, was admitted to Medical Room 251-01. Patient/family oriented to hospital policies and general routines including ID bracelet, bed and alarms, visiting hours, pain management, procedures, bathroom and other care routines, personal items, smoking policy, room service/diet, and visiting hours. Information on how to activate the Rapid Response Team has been discussed. Patient/Family are encouraged to report perceived risks to care and to ask questions if they do not understand what they are told or what they should do.
[2023-11-10] MEDS: THIAMINE HCL 200 MG/2 ML VIAL 100 MG IV PUSH (14:43)
[2023-11-10 14:51] LABS: Hemoglobin 11.3 g/dL (14.0-18.0)
[2023-11-10 15:00] LABS: Magnesium 2.2 mg/dL (1.6-2.3); Potassium 3.2 mmol/L (3.4-5.0)
--- NOTE | 2023-11-10 15:07 | WPDGICN ---
Assessment and Plan Assessment and plan (1) Melena: Code(s): K92.1 - Melena Status: Acute Assessment and Plan: will proceed with egd, differential include gastritis/esophagitis, ulcers or even varices since has new diagnosis of cirrhosis iv protonix (2) Acute upper GI bleed: Code(s): K92.2 - Gastrointestinal hemorrhage, unspecified Status: Acute Assessment and Plan: egd tomorrow (3) Acute on chronic blood loss anemia: Code(s): D62 - Acute posthemorrhagic anemia Status: Acute Assessment and Plan: also had incontinence he has been dealing with anemia and received iron for few months will do colonoscopy tomorrow (case discussed with daughter at bedside) (4) Cirrhosis: Code(s): K74.60 - Unspecified cirrhosis of liver Status: Acute Assessment and Plan: he is an alcoholic and apparently also with HCV in the past- will repeat HCV RNA, if positive then we can start treatment as outpatient obviously he needs to stop drinking thiamine, will need nutrition support after scopes (5) Transaminitis: Code(s): R74.01 - Elevation of levels of liver transaminase levels Status: Acute Assessment and Plan: new diagnosis if cirrhosis and alcohol use monitor (6) Hypokalemia: Code(s): E87.6 - Hypokalemia Status: Acute Assessment and Plan: repleting (7) Alcohol abuse: Code(s): F10.10 - Alcohol abuse, uncomplicated Status: Acute (8) Hepatitis C: Code(s): B19.20 - Unspecified viral hepatitis C without hepatic coma Status: Acute Assessment and Plan: hcv rna pending (9) Chronic obstructive pulmonary disease: Code(s): J44.9 - Chronic obstructive pulmonary disease, unspecified Status: Acute GI Consult Note Consult date/time: 11/10/23 15:07 Reason for consult: melena, anemia, cirrhosis HPI: Brennon Multani is a 78 year old male with h/o copd, gerd and anemia using iron for few months, for last 10 days with dyspepsia and some nausea but last 2 days had incontinence and noticed black tarry stools, hgb 11 from 16 on 06/2023 but earlier this year hgb lower 8-9 (started using iron), Also had hypokalemia k 2.8, elevated liver enzymes bili 1.8, ast/alt ratio >2, he drinks about 1/2 fifth for years. He denies history of liver disease but I found in the records that had HCV + and he says that was never treated. CT scan reviewed, had 2.1 cm intraluminal urinary bladder mass arising from the superior wall, as detailed above. This is suspicious for bladder carcinoma until proven otherwise. Cirrhotic change of the liver with small amount of abdominopelvic ascites. Patchy peripheral airspace consolidation at the right lung base could reflect atelectasis versus pneumonia. Admitted to floor, started on iv protonix and urology consult. He says that months ago noted one time small amount of blood in urine. Had colonoscopy 2016 with polyps, never had egd. Review of Systems Constitutional: Constitutional: Reports fatigue Eyes: Eyes: Denies blurry vision ENT: Comments: + hearing aids Cardiovascular: Cardiovascular: Denies chest pain Respiratory: Respiratory: Denies cough Gastrointestinal: Comments: melena Genitourinary: Comments: hematuria months ago Musculoskeletal: Musculoskeletal: Denies arthralgias Integumentary/Breasts: Skin/Breast: Denies rash Neurologic: Denies Abnormal speech present Psychiatric: Psychiatric: Denies confusion [facility] Past Medical History Medical History (Updated 11/10/23 @ 15:15 by Aaron Jackson MD) Acute on chronic blood loss anemia Alcohol abuse Chronic obstructive pulmonary disease 100+ pack-year history. Cirrhosis Hepatitis C Hypothyroidism Iron deficiency anemia Mixed hyperlipidemia Supplemental oxygen dependent Surgical History Surgical History History of c
--- NOTE | 2023-11-10 15:37 | WPDURCON ---
Assessment and Plan Assessment and plan (1) Mass of urinary bladder: Code(s): N32.89 - Other specified disorders of bladder Status: Acute Assessment and Plan: Will plan flexible cystoscopy at time of GI evaluation tomorrow Urology Consult Note HPI Date Seen: 11/10/23 Requesting Physician: Deja Hernandez DO Primary Care Provider: Guicho Edgar MD Consult Narrative Narrative: Brennon Multani is a 78 year old male, not previously seen in our office, admitted with dark tarry stools, other extensive medical problems (including alcoholic cirrhosis). Although he has not had any voiding symptoms or hematuria a CT scan the abdomen pelvis with contrast is suggestive of a neoplasm growing from the anterior bladder wall was upper urinary tracts were otherwise normal. Review of Systems Cardiovascular: Cardiovascular: Denies chest pain, Denies lightheadedness, Denies palpitations and Denies dyspnea Respiratory: Respiratory: Denies dyspnea Gastrointestinal: Gastrointestinal: Reports melena, Denies diarrhea, Denies nausea and Denies vomiting Genitourinary: Genitourinary: Denies hematuria and Denies dysuria Endocrine: Endocrine: Denies palpitations [facility] Past Medical History Medical History (Updated 11/10/23 @ 15:15 by Aaron Jackson MD) Acute on chronic blood loss anemia Alcohol abuse Chronic obstructive pulmonary disease 100+ pack-year history. Cirrhosis Hepatitis C Hypothyroidism Iron deficiency anemia Mixed hyperlipidemia Supplemental oxygen dependent Surgical History Surgical History History of colonoscopy with polypectomy History of right inguinal hernia repair Family History Family History Mother Carcinoma of colon Social History Social History (Updated 11/10/23 @ 13:02 by Roselia Brewer PA-C) Social History: Surrogate medical decision maker: Code status: Full code. Smoking packs per day: 2 Smoking cigarettes per day: 40.0 Years smoked: 50 Smoking pack-years: 100.00 Smoking status: Former smoker Second hand tobacco smoke exposure: No Additional smoking assessment comments: Pt is still vaping. Alcohol intake: never Drinks per week: 3 Alcohol use details: A 5th of whiskey a day. Substance use: never Substance use type: does not use Lack of Transportation: No Lack of Food: Never True Current Housing: I Have Housing Concerned About Future Housing: No Difficulty Paying Gas/Electric Bills: No Difficulty Paying for Meds: No Currently Unemployed: No Education: High School Diploma/GED Difficulty w/ Childcare or Family Care: No Living arrangements: alone Additional living arrangements comments: . Lives alone in [place]. Occupation/Education: retired Spiritual care concerns: No Meds Home Medications and Allergies Home Medications Medication Instructions Recorded Confirmed Type eszopiclone 3 mg tablet 3 mg HS 11/10/23 11/10/23 History famotidine 40 mg tablet 40 mg DAILY 11/10/23 11/10/23 History ferrous sulfate 325 mg (65 mg 325 mg EVERY OTHER DAY 11/10/23 11/10/23 History iron) tablet fluticasone fur. 100 mcg-umeclid 1 ea DAILY 11/10/23 11/10/23 History 62.5 mcg-vilant 25 mcg inhalat.powder (Trelegy Ellipta) levothyroxine 88 mcg tablet 88 mcg DAILY 11/10/23 11/10/23 History rosuvastatin 10 mg tablet 10 mg DAILY 11/10/23 11/10/23 History Allergies Allergy/AdvReac Type Severity Reaction Status Date / Time No Known Allergies Allergy Verified 11/10/23 11:18 Vital Signs Vital Signs - 24 hr 11/10/23 05:59 11/10/23 09:00 11/10/23 08:00 Temperature 97.7 F Pulse Rate 117 H 95 93 Respiratory Rate 14 14 16 Blood Pressure 112/71 111/61 119/67 Pulse Oximetry 100 100 97 Oxygen Delivery Nasal Cannula Oxygen Flow Rate 6.0 11/10/23 07:30 11/10/23 0
[2023-11-10] MEDS: BISACODYL 5 MG TABLET EC 20 MG PO (16:05)
[2023-11-10] MEDS: polyethylene glycoL 3350 238 GM BOTTLE PO (16:05)
[2023-11-10] MEDS: IPRATROPIUM BR 0.02% INH SOLN 0.5 MG/2.5 ML VIAL 1.5 MG INHALATION (19:15)
[2023-11-10] MEDS: ALBUTEROL SULFATE NEB 2.5 MG/3 ML INH INHALATION (19:15)
[2023-11-10] MEDS: POTASSIUM CHLORIDE 20 MEQ ER TABLET PO (21:09)
[2023-11-10 21:27] LABS: Hematocrit 38.1 % (42.0-52.0)
[2023-11-11] VITALS (14 sets, daily range): BP systolic 102–120; BP diastolic 54–75; PULSE 87–106; RESP 16–22; TEMP 36.3–36.7; O2SAT 96–100
[2023-11-11] MEDS: MAGNESIUM CITRATE 300 ML BTL PO (02:15)
[2023-11-11 03:02] LABS: Basophils Absolute Auto 0.1 K/mm3 (0.0-0.1); Basophils Percent Auto 1.1 % (0.2-1.2); Eosinophils Absolute Auto 0.2 K/mm3 (0-0.3); Eosinophils Percent Auto 3.2 % (0-4.4); Hematocrit 35.5 % (42.0-52.0); Hemoglobin 11.1 g/dL (14.0-18.0); Immature Granulocyte Absolute 0.02 K/mm3 (0.00-0.031); Immature Granulocyte Percent A 0.3 % (0-0.5); Lymphocytes Absolute Auto 0.99 K/mm3 (0.9-3.2); Lymphocytes Percent Auto 15.2 % (18.3-44.2); Mean Corpuscular HGB Conc 31.3 g/dl (32-36); Mean Corpuscular Hemoglobin 30.8 pg (26-34); Mean Corpuscular Volume 98.6 fl (80-100); Mean Platelet Volume 10.7 fl (7.4-10.4); Monocytes Absolute Auto 0.6 K/mm3 (0.1-0.6); Monocytes Percent Auto 8.6 % (2.6-8.5); Neutrophils Absolute Auto 4.7 K/mm3 (1.3-6.7); Neutrophils Percent Auto 71.6 % (45.5-73.1); Platelet Count Result 399 k/mm3 (150-375); Red Cell Distribution Width 17.5 % (11.5-14.5); White Blood Count 6.5 K/mm3 (4.5-10.0)
[2023-11-11 03:06] LABS: INR 1.3; Prothrombin Time 17.1 Seconds (11.1-14.7)
[2023-11-11 03:06] LABS: Anion Gap 5 mmol/L (8-16); Blood Urea Nitrogen 6 mg/dL (9-20); Carbon Dioxide 33 mmol/L (22-30); Chloride 98 mmol/L (98-107); Potassium 2.6 mmol/L (3.4-5.0); Sodium 136 mmol/L (137-145)
[2023-11-11 03:07] LABS: Alanine Aminotransferase 51 U/L (6-50); Albumin Level 2.7 g/dL (3.5-5.1); Alkaline Phosphatase 236 U/L (38-126); Aspartate Amino Transferase 129 U/L (17-59); Estimated CRCL calculation 85 ml/min; Estimated Glomerular Filt Rate > 60; Glucose 105 mg/dL (65-110); Magnesium 2.1 mg/dL (1.6-2.3)
[2023-11-11] MEDS: POTASSIUM CHLORIDE INJ 40 MEQ in SODIUM CHLORIDE 0.9% IV 500 ML 130 MEQ IVPB (03:47)
[2023-11-11] MEDS: LEVOTHYROXINE SODIUM 88 MCG TABLET BY MOUTH (05:45)
--- NOTE | 2023-11-11 06:28 | WPDHPUPDATE1 ---
History and Physical Update Update Date/Time: 11/11/23 06:28 History and Physical has been reviewed, including an updated exam of the patient. There are NO changes in the patient's condition. Risks, benefits, and alternatives have been discussed and questions answered. Patient agrees to proceed with procedure.
[2023-11-11 07:00] LABS: Hematocrit 35.8 % (42.0-52.0); Hemoglobin 11.2 g/dL (14.0-18.0)
[2023-11-11] MEDS: THIAMINE HCL 100 MG TABLET PO (08:36)
[2023-11-11] MEDS: FOLIC ACID 1 MG TABLET PO (08:36)
[2023-11-11] MEDS: PANTOPRAZOLE SODIUM IV 40 MG VIAL IV PUSH (08:37)
[2023-11-11] MEDS: POTASSIUM CHLORIDE INJ 40 MEQ in SODIUM CHLORIDE 0.9% IV 500 ML 110 MEQ IVPB (09:45)
--- NOTE | 2023-11-11 10:45 | PC.NURSE ---
To GI Lab per bed, IV left forearm. Report given to Willis TIJERINA.
--- NOTE | 2023-11-11 11:07 | WPDANESEPPF ---
Anes - Initial Pre Proc Eval Procedure: Operation Date: 11/11/23 15:30 Proposed Procedures p Esophagogastroduodenoscopy & Colonoscopy - Aaron Jackson MD s Flexible Cystoscopy - Romulo Null MD Date/Time: 11/11/23 11:07 Surgeon: Deja Hernandez DO Pre Op Diagnosis: melena,upper,gi bleed,urinary bladder mass Patient Data Age: 78 Gender: M Height: 1.83 m Weight: 86 kg Last Vital Signs Temp 36.7 C 11/11/23 05:04 Pulse 106 H 11/11/23 05:04 Resp 18 11/11/23 05:04 BP 109/65 11/11/23 05:04 Pulse Ox 98 11/11/23 05:04 O2 Del Method Nasal Cannula 11/10/23 20:00 O2 Flow Rate 2 11/10/23 20:00 Allergies Allergy/AdvReac Type Severity Reaction Status Date / Time No Known Allergies Allergy Verified 11/11/23 11:06 Home Medications Medication Instructions Recorded Confirmed Type eszopiclone 3 mg tablet 3 mg HS 11/10/23 11/11/23 History famotidine 40 mg tablet 40 mg DAILY 11/10/23 11/11/23 History ferrous sulfate 325 mg (65 mg 325 mg EVERY OTHER DAY 11/10/23 11/11/23 History iron) tablet fluticasone fur. 100 mcg-umeclid 1 ea DAILY 11/10/23 11/11/23 History 62.5 mcg-vilant 25 mcg inhalat.powder (Trelegy Ellipta) levothyroxine 88 mcg tablet 88 mcg DAILY 11/10/23 11/11/23 History rosuvastatin 10 mg tablet 10 mg DAILY 11/10/23 11/11/23 History Laboratory Tests 11/10/23 11/10/23 11/11/23 14:35 20:29 02:29 WBC RBC Hgb 11.3 L g/dL 12.0 L g/dL (14.0-18.0) (14.0-18.0) Hct 36.0 L % 38.1 L % (42.0-52.0) (42.0-52.0) MCV MCH MCHC RDW Plt Count MPV Immature Gran % (Auto) Neut % (Auto) Lymph % (Auto) [place] % (Auto) Eos % (Auto) Baso % (Auto) Lymph # (Auto) [place] # (Auto) Eos # (Auto) Baso # (Auto) Abs Immat Gran (auto) Absolute Neuts (auto) Absolute Nucleated RBC Nucleated RBC % PT INR APTT Sodium 136 L mmol/L (137-145) Potassium 3.2 L mmol/L 2.6 L* mmol/L (3.4-5.0) (3.4-5.0) Chloride 98 mmol/L (98-107) Carbon Dioxide 33 H mmol/L (22-30) Anion Gap 5 L mmol/L (8-16) BUN 6 L mg/dL (9-20) Creatinine 0.70 mg/dL (0.7-1.3) Estim Creat Clear Calc 85 ml/min Estimated GFR > 60 (59 - ) Glucose 105 mg/dL (65-110) Calcium 8.0 L mg/dL (8.4-10.2) Magnesium 2.2 mg/dL 2.1 mg/dL (1.6-2.3) (1.6-2.3) Total Bilirubin 2.0 H mg/dL (0.2-1.3) AST 129 H U/L (17-59) ALT 51 H U/L (6-50) Alkaline Phosphatase 236 H U/L (38-126) Total Protein 6.0 L g/dL (6.3-8.2) Albumin 2.7 L g/dL (3.5-5.1) HCV RNA (PCR) IUs/ml Pending HCV RNA PCR log IUs/ml Pending Hep C Genotype (PCR) Pending 11/11/23 11/11/23 02:30 06:54 WBC 6.5 K/mm3 (4.5-10.0) RBC 3.60 L M/mm3 (4.6-6.20) Hgb 11.1 L g/dL 11.2 L g/dL (14.0-18.0) (14.0-18.0) Hct 35.5 L % 35.8 L % (42.0-52.0) (42.0-52.0) MCV 98.6 fl (80-100) MCH 30.8 pg (26-34) MCHC 31.3 L g/dl (32-36) RDW 17.5 H % (11.5-14.5) Plt Count 399 H k/mm3 (150-375) MPV 10.7 H fl (7.4-10.4) Immature Gran % (Auto) 0.3 % (0-0.5) Neut % (Auto) 71.6 % (45.5-73.1) Lymph % (Auto) 15.2 L % (18.3-44.2) [place] % (Auto) 8.6 H % (2.6-8.5) Eos % (Auto) 3.2 % (0-4.4) Baso % (Auto) 1.1 % (0.2-1.2) Lymph # (Auto) 0.99 K/mm3 (0.9-3.2) [place] # (Auto) 0.6 K/mm3 (0.1-0.6) Eos # (Auto) 0.2 K/mm3 (0-0.3) Baso # (Auto) 0.1 K/mm3 (0.0-0.1) Abs Immat G
[2023-11-11] MEDS: LACTATED RINGERS 1,000 ML 150 ML IV CONT (11:12)
--- NOTE | 2023-11-11 11:29 | SUR.OPER ---
dr diaz did a flex cysto, started at 1126 and ended at 1128.
[2023-11-11] MEDS: LIDOCAINE HCL 2% GEL UROJET 10 ML PKG MUCOUS MEM (11:42)
--- NOTE | 2023-11-11 11:42 | W.PM.PROC2 ---
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 After the uneventful induction systemic sedation 2% lidocaine is injected in his urethra. Flexible cystoscopy was undertaken a 16 F flexible cystoscope. He has moderate lateral lobe hyperplasia with no median lobe enlargement of the prostate. Bladder was minimally trabeculated. There was a papillary urothelial neoplasm in the dome measuring approximately 2.5 cm. The remainder of the bladder mucosa is without hyperemia. Has a single orthotopic ureteral orifice Urine Output 125 Drains No Packing No Pathology None sent Complications No immediate complications Condition Stable
--- NOTE | 2023-11-11 11:43 | SUR.OPER ---
EGD ENDED AT 1137, COLONOSCOPY STARTED AT 1142
--- NOTE | 2023-11-11 12:37 | PM.IMPN ---
Progress Note: A&P Assessment and Plan (1) Melena: Code(s): K92.1 - Melena Status: Acute Assessment and Plan: Hemoglobin stable 11 Scheduled for colon exam (2) Acute blood loss anemia: Code(s): D62 - Acute posthemorrhagic anemia Status: Acute Assessment and Plan: Secondary to above. Trend H&H and transfuse if indicated. (3) Mass of urinary bladder: Code(s): N32.89 - Other specified disorders of bladder Status: Acute Assessment and Plan: Incidental 2.1 cm urinary bladder mass arising from the superior while noted on CT Urology consulted . (4) Abnormal chest x-ray: Code(s): R93.89 - Abnormal findings on diagnostic imaging of other specified body structures Status: Acute Assessment and Plan: Chest x-ray and CT scan shows haziness in the right lung. He has a chronic smoker's cough which is unchanged. Repeat xray continue antibiotics (5) Hypokalemia: Code(s): E87.6 - Hypokalemia Status: Acute Assessment and Plan: Potassium replaced in ED. Repeat potassium and magnesium level pending. (6) Alcohol abuse: Code(s): F10.10 - Alcohol abuse, uncomplicated Status: Acute Assessment and Plan: Patient reports drinking a 5th of whiskey a day. Denies history of alcohol withdrawal seizures. Initiate CIWA protocol and supplement thiamine. (7) Iron deficiency anemia: Code(s): D50.9 - Iron deficiency anemia, unspecified Status: Acute Assessment and Plan: Recent iron studies noted. Continue ferrous sulfate 325 mg. (8) Transaminitis: Code(s): R74.01 - Elevation of levels of liver transaminase levels Status: Acute Assessment and Plan: Secondary to ongoing alcohol abuse and possible cirrhosis given cirrhotic changes noted on CT. Noted that he was reactive for hepatitis-C some years back but never treated. Dr. Silva consulted. Continue to monitor LFTs. (9) Cirrhosis: Code(s): K74.60 - Unspecified cirrhosis of liver Status: Acute Assessment and Plan: Cirrhotic changes of liver noted on CT today. Does not appear acutely decompensated. Coags are slightly prolonged however. (10) Hypothyroidism: Code(s): E03.9 - Hypothyroidism, unspecified Status: Acute Assessment and Plan: Recent TSH was within normal limits. Continue levothyroxine. (11) Chronic obstructive pulmonary disease: Code(s): J44.9 - Chronic obstructive pulmonary disease, unspecified Status: Acute Assessment and Plan: Some wheezing noted on exam,. Nebulizers ordered. At baseline oxygen requirement. Continue maintenance inhalers as prescribed. Plan Monitor Hgb and repeat xray chest continue current treatment Subjective Date/time seen: 11/11/23 12:37 Interval history: Patient was seen during rounds today. No shortness of breath or chest pain No abdominal pain, nausea, no vomiting. Mood stable. Review of Systems Review of Systems: Twelve systems were reviewed. No fever, chills, or sweats. Denies cold and flu symptoms. Endorses chronic smoker's cough which is unchanged. Denies sick contacts. No history of alcohol withdrawal symptoms or seizure. Denies hematuria. Except as documented, all other systems were reviewed and are negative. Exam Narrative: General: Moderately ill-appearing gentleman sitting up in bed after having just had a dark, tarry stool. Weight: 86.1 kg. BMI: 25.7 HEENT: PERRL, EOMI. Sclera anicteric. Tacky mucous membranes. Neck: Supple. Respiratory: On baseline 5 L nasal cannula. Demonstrates conversational dyspnea, speaking in 4 to 5 word sentences (states this is baseline). Lung sounds are diminished throughout with some expiratory wheezing. Cardiovascular: Regular rate and rhythm with S1-S2. Gastrointestinal: Abdomen is soft, nontender, and nondistended with positive bowel sound
[2023-11-11 14:54] LABS: Hematocrit 38.5 % (42.0-52.0); Hemoglobin 11.8 g/dL (14.0-18.0)
--- NOTE | 2023-11-11 17:50 | PC.NURSE ---
Attempted to notify provider, Roselia Brewer, of changes in patient telemetry, HR elevated 20-30 beats per minute, now tachycardic. Left message with provider. No answer.
[2023-11-11 18:10] LABS: Potassium 3.5 mmol/L (3.4-5.0)
--- NOTE | 2023-11-11 18:30 | PC.NURSE ---
Attempted to notify provider, Roselia Brewer, again regarding patient changes in telemetry, HR still elevated 20-30 beats per minute, tachycardic. Left message with provider. No response. Will continue to monitor.
[2023-11-11] MEDS: PANTOPRAZOLE 40 MG TABLET PO (21:06)
--- NOTE | 2023-11-11 22:02 | ECG_ITS ---
Measurements Intervals [place] Rate: 93 P: 75 [place]: 171 QRS: -14 QRSD: 154 T: 59 QT: 403 QTc: 503 Interpretive Statements SINUS RHYTHM RIGHT BUNDLE BRANCH BLOCK [120+ ms QRS DURATION, UPRIGHT V1, 40+ ms S IN I/aVL/V4/V5/V6] ABNORMAL ECG COMPARED TO ECG 11/10/2023 06:19:57 NO SIGNIFICANT CHANGES Electronically Signed On 11-12-2023 7:38:43 GLOBAL CLINICAL LEADER by Sly Palencia M.D.
[2023-11-11] MEDS: LORazepam (*CRX) 1 MG TABLET PO (22:45)
[2023-11-12] VITALS (33 sets, daily range): BP systolic 60–125; BP diastolic 52–72; PULSE 65–170; RESP 15–25; TEMP 36–39.9; O2SAT 94–100
--- NOTE | 2023-11-12 | ECHO_ITS ---
Patient Info Name: Brennon Multani Age: 78 years : 1945 Gender: Male Ht: 72 in Wt: 187 lbs BSA: 2.08 m2 HR: 108 bpm BP: 103 / 57 mmHg Heart Rhythm: Sinus Rhythm Technical Quality: Poor Exam Date: 11/12/2023 12:59 PM Exam Location: Echo Lab Exam Room: ICU7 Patient Status: Inpatient Admit Date: 11/10/2023 Staff Ordering Physician: Dexter Victor MD Manager Data Center: Gemini Erickson RDCS Attending Provider: Deja Hernandez DO Exam Type: CA echo dop color flow w con Study Info Indications - CHEST PAIN Complete two-dimensional, color flow and Doppler transthoracic echocardiogram is performed with contrast to opacify the left ventricle and to improve the deliniation of the left ventricle endocardial borders. Contrast/Agitated Saline Contrast/Ag. Saline: Definity Amount: 2.00 ml Administered By: Gemini Erickson [facility] Existing IV Access: Yes IV Access Condition: patent with no signs of infiltration Reason for Poor Study: patient body habitus Summary 1. Somewhat technically challenging exam, definity contrast utilized to improve visualization. 2. Normal left ventricular size and systolic function without wall motion abnormality. 3. Suggestion of modest RV enlargement in parasternal and subcostal window. 4. No significant valvular dysfunction. Left Ventricle Left ventricular chamber dimension is normal. Left ventricular systolic function is normal, estimated at 60-65%. The left ventricular diastolic function is grade I diastolic dysfunction. Right Ventricle Right ventricular chamber dimension is mildly enlarged. Right ventricular systolic function is normal. Left Atria Left atrial chamber dimension is normal. Right Atria Right atrial chamber dimension is normal. Aortic Valve The aortic valve is trileaflet. There is mild aortic valve sclerosis. Pulmonic Valve The pulmonic valve is not well visualized. Mitral Valve The mitral valve has normal leaflets. Tricuspid Valve The tricuspid valve leaflets are not well visualized. Pericardium/Pleural The pericardium appears normal. Aorta The aortic root size at the sinus of Valsalva is normal. Left Ventricular Outflow Tract Name Value Normal LVOT 2D LVOT Diameter 2.13 cm LVOT Doppler LVOT Peak Gradient 4 mmHg LVOT Mean Gradient 3 mmHg LVOT VTI 17.05 cm LVOT VTI/AV VTI Ratio 0.95 LVOT Stroke Volume 60.76 ml LVOT CO 16.80 l/min LVOT CI 8.06 L/min/m2 Tricuspid Valve Name Value Normal TV Regurgitation Doppler TR Peak Velocity 252.43 cm/s TR Peak Gradient 25 mmHg Estimated PAP/RSVP RA Pressure
[2023-11-12 05:28] LABS: Basophils Absolute Auto 0.1 K/mm3 (0.0-0.1); Eosinophils Absolute Auto 0.2 K/mm3 (0-0.3); Eosinophils Percent Auto 3.5 % (0-4.4); Hematocrit 33.5 % (42.0-52.0); Hemoglobin 10.3 g/dL (14.0-18.0); Immature Granulocyte Absolute 0.04 K/mm3 (0.00-0.031); Immature Granulocyte Percent A 0.7 % (0-0.5); Lymphocytes Absolute Auto 0.96 K/mm3 (0.9-3.2); Mean Corpuscular HGB Conc 30.7 g/dl (32-36); Mean Corpuscular Volume 100.9 fl (80-100); Mean Platelet Volume 10.4 fl (7.4-10.4); Monocytes Absolute Auto 0.5 K/mm3 (0.1-0.6); Neutrophils Absolute Auto 4.2 K/mm3 (1.3-6.7); Neutrophils Percent Auto 69.8 % (45.5-73.1); Platelet Count Result 350 k/mm3 (150-375); Red Blood Count 3.32 M/mm3 (4.6-6.20); Red Cell Distribution Width 17.4 % (11.5-14.5)
[2023-11-12 05:40] LABS: Alanine Aminotransferase 43 U/L (6-50); Albumin Level 2.4 g/dL (3.5-5.1); Alkaline Phosphatase 197 U/L (38-126); Anion Gap 2 mmol/L (8-16); Aspartate Amino Transferase 114 U/L (17-59); Bilirubin,Total 1.4 mg/dL (0.2-1.3); Blood Urea Nitrogen 6 mg/dL (9-20); Calcium 7.8 mg/dL (8.4-10.2); Carbon Dioxide 29 mmol/L (22-30); Chloride 106 mmol/L (98-107); Estimated CRCL calculation 85 ml/min; Estimated Glomerular Filt Rate > 60; Glucose 98 mg/dL (65-110); Magnesium 2.1 mg/dL (1.6-2.3); Potassium 3.3 mmol/L (3.4-5.0); Sodium 137 mmol/L (137-145)
--- NOTE | 2023-11-12 07:32 | PM.IMPN ---
Progress Note: A&P Assessment and Plan (1) Melena: Code(s): K92.1 - Melena Status: Acute Assessment and Plan: 11/12/23: (2) Acute blood loss anemia: Code(s): D62 - Acute posthemorrhagic anemia Status: Acute Assessment and Plan: 11/12/23: (3) Mass of urinary bladder: Code(s): N32.89 - Other specified disorders of bladder Status: Acute Assessment and Plan: 11/12/23: (4) Abnormal chest x-ray: Code(s): R93.89 - Abnormal findings on diagnostic imaging of other specified body structures Status: Acute Assessment and Plan: 11/12/23: (5) Hypokalemia: Code(s): E87.6 - Hypokalemia Status: Acute Assessment and Plan: 11/12/23: (6) Alcohol abuse: Code(s): F10.10 - Alcohol abuse, uncomplicated Status: Acute Assessment and Plan: 11/12/23: (7) Iron deficiency anemia: Code(s): D50.9 - Iron deficiency anemia, unspecified Status: Acute Assessment and Plan: 11/12/23: (8) Transaminitis: Code(s): R74.01 - Elevation of levels of liver transaminase levels Status: Acute Assessment and Plan: 11/12/23: (9) Cirrhosis: Code(s): K74.60 - Unspecified cirrhosis of liver Status: Acute Assessment and Plan: 11/12/23: (10) Hypothyroidism: Code(s): E03.9 - Hypothyroidism, unspecified Status: Acute Assessment and Plan: 11/12/23: (11) Chronic obstructive pulmonary disease: Code(s): J44.9 - Chronic obstructive pulmonary disease, unspecified Status: Acute Assessment and Plan: 11/12/23: Plan 11/12/23: Time Spent With Patient Time with patient: Greater than 35 minutes Subjective Date/time seen: 11/12/23 07:32 Interval history: This is a 78 year old male who presented to the hospital on 11/10/23 for evaluation of dark stools. Patient has a history of alcohol abuse and drinks 1/5 of whiskey a day. H/H was stable on admission. Work up in the hospital includes a CT of the abdomen and pelvis which revealed a 2.1 cm intraluminal urinary bladder mass arising from the superior wall, suspicious for bladder carcinoma, cirrhotic change of the liver with small amount of abdominopelvic ascites, patchy peripheral airspace consolidation at the right lung base could reflect atelectasis versus pneumonia, underlying emphysema at the lung bases. CXR revealed hazy right lower lobe airspace disease, suspicious for pneumonia or underlying COPD. GI and Urology was consulted. GI took patient for EGD and colonoscopy on 11/11/23 which shown small grade I varices in the distal esophagus with no active bleeds, mild gastritis, and a 4mm benign ulcer on the EGD. The colonoscopy shown multiple polyps in the transverse, cecum, and ascending colon with removal of all the polyps. Urology took patient to the OR on 11/11/23 for a cystoscopy without intervention during the procedure. Patient was started on Azithromycin for pneumonia coverage and breathing treatments. On examination today patientVSS, he is afebrile,currently on 5L NC. Labs today reveal WBC 6.0, Hgb 10.3, Hct 33.5, Na+ 137, K+ 3.3, BUN 6, Creatinine 0.70, Ca+ 7.8, Total bili 1.4, AST 114, ALT 43, Alk Phos 197, Albumin 2.4. Review of Systems Review of Systems: All systems reviewed & are unremarkable except as noted in HPI and below Constitutional: Constitutional: Reports as per HPI and Reports no additional constitutional complaints Eyes: Eyes: Reports as per HPI and Reports no additional eye complaints ENT: Reports system reviewed and no additional complaints, except as documented and Reports as per HPI Cardiovascular: Cardiovascular: Reports as per HPI and Reports no additional cardiovascular complaints Respiratory: Respiratory: Reports as per HPI and Reports no additional respiratory complaints Gastrointestinal: Gastrointestinal: Reports as per HPI and Repor
[2023-11-12] MEDS: FLUTICASONE/UMECLIDIN/VILANTER 100-62.5-25 MCG ELLIPTA 1 PUFF INHALATION (07:49)
[2023-11-12] MEDS: PANTOPRAZOLE 40 MG TABLET PO (09:27)
[2023-11-12] MEDS: THIAMINE HCL 100 MG TABLET PO (09:29)
[2023-11-12] MEDS: FOLIC ACID 1 MG TABLET PO (09:29)
[2023-11-12] MEDS: AZITHROMYCIN 250 MG TABLET PO (09:30)
[2023-11-12] MEDS: POTASSIUM CHLORIDE 20 MEQ ER TABLET 40 MEQ PO (09:30)
--- NOTE | 2023-11-12 10:06 | ECG_ITS ---
Measurements Intervals [place] Rate: 172 P: MN: 0 QRS: -71 QRSD: 117 T: 75 QT: 269 QTc: 455 Interpretive Statements SUPRAVENTRICULAR TACHYCARDIA CONSIDER ATYPICAL ATRIAL FLUTTER LOW QRS VOLTAGE [QRS DEFLECTION < 0.5/1.0 mV IN LIMB/CHEST LEADS] RIGHT BUNDLE BRANCH BLOCK [120+ ms QRS DURATION, UPRIGHT V1, 40+ ms S IN I/aVL/V4/V5/V6] COMPARED TO ECG 11/11/2023 22:20:51 SINUS RHYTHM IS REPLACED BY SVT, POSSIBLE ATYPICAL ATRIAL FLUTTER WITH RVR Electronically Signed On 11-12-2023 12:42:14 INDUSTRIAL MAINTENANCE TECHNICIAN by Sly Palencia M.D.
[2023-11-12] MEDS: MORPHINE SULFATE (*CRX) 4 MG/ML INJ IV PUSH ×2 (10:25→10:42)
--- NOTE | 2023-11-12 10:35 | PC.NURSE ---
Patient arrived via bed with Stephani, DROP HAMMER SETTER UP, and multiple staff at bedside. Patient restless, c/o chest pain. Dr. Victor to bedside.
[2023-11-12] MEDS: METOPROLOL TARTRATE INJ 5 MG/5 ML VIAL IV PUSH (10:40)
[2023-11-12] MEDS: NITROGLYCERIN SL 0.4 MG TABLET SUBLINGUAL (10:42)
[2023-11-12] MEDS: SODIUM CHLORIDE 0.9% IV 1,000 ML 999 ML IV CONT ×2 (10:52→12:02)
--- NOTE | 2023-11-12 10:54 | PM.EVENT ---
Event Note Event Note Event Note: Interval summary: This is a 78 year old male who presented to the hospital on 11/10/23 for evaluation of dark stools. Patient has a history of alcohol abuse and drinks 1/5 of whiskey a day. H/H was stable on admission. Work up in the hospital includes a CT of the abdomen and pelvis which revealed a 2.1 cm intraluminal urinary bladder mass arising from the superior wall, suspicious for bladder carcinoma, cirrhotic change of the liver with small amount of abdominopelvic ascites, patchy peripheral airspace consolidation at the right lung base could reflect atelectasis versus pneumonia, underlying emphysema at the lung bases. CXR revealed hazy right lower lobe airspace disease, suspicious for pneumonia or underlying COPD. GI and Urology was consulted. GI took patient for EGD and colonoscopy on 11/11/23 which shown small grade I varices in the distal esophagus with no active bleeds, mild gastritis, and a 4mm benign ulcer on the EGD. The colonoscopy shown multiple polyps in the transverse, cecum, and ascending colon with removal of all the polyps. Urology took patient to the OR on 11/11/23 for a cystoscopy without intervention during the procedure. Patient was started on Azithromycin for pneumonia coverage and breathing treatments. Event: The nurse called me at 10:03 stating that the patient is diaphoretic, tachycardic at 170, shortness of breath. CIWA score was 7 and patient did not receive anything at that time. I asked the nurse to get a stat EKG and then I came down to the room. Patient appeared to be in acute respiratory distress, diaphoretic, restless, and shaking in the bed. His O2 saturation was showing 100% on 6L HFNC. We switched him to a 100% non-rebreather. EKG was showing possible Inferior STEMI and SVT with a rate of 172. Patient does not have a history of SVT or Atrial fibrillation. Cardiology was consulted. Rapid response was called at that time. Dr. Humphrey with cardiology came to the rapid and reviewed the EKG and confirmed that this was not a STEMI. CXR was also done which shown stable focal airspace disease right midlung, compatible with pneumonia. Patient temp was 100.7 and trending up while I was at the bedside. I ordered morphine 4mg, aspirin 325 mg, blood cultures x2, and stat labs including a troponin and a lactate. Patient only received 2 doses of Azithromycin this admission. The certified alcohol and drug counselor, Dr. Victor arrived in the room and took over the patient's care. Patient was transferred to the ICU and placed on Bipap. ICU was establishing new IV's. Patient was given a second dose of IM Morphine and was also given sublingual nitro for his chest pain. Patient remained in SVT with a rate of 159-170 before I left the bedside. A temp sensing daniels was also placed by nursing. Labs prior to this event revealed WBC 6.0, Hgb 10.3, Hct 33.5, Na+ 137, K+ 3.3, BUN 6, Creatinine 0.70, Ca+ 7.8, Total bili 1.4, AST 114, ALT 43, Alk Phos 197, Albumin 2.4. Plan for a chest CTA, an obstructive series, and a PICC line.
--- NOTE | 2023-11-12 11:00 | ECG_ITS ---
Measurements Intervals [place] Rate: 122 P: 83 IN: 156 QRS: -47 QRSD: 132 T: 60 QT: 326 QTc: 466 Interpretive Statements SINUS TACHYCARDIA RIGHT BUNDLE BRANCH BLOCK [120+ ms QRS DURATION, UPRIGHT V1, 40+ ms S IN I/aVL/V4/V5/V6] LEFTWARD AXIS ABNORMAL ECG COMPARED TO ECG 11/12/2023 10:16:03 SVT OR ATRIAL FLUTTER HAVE NOW BEEN REPLACED WITH SINUS RHYTHM Electronically Signed On 11-13-2023 8:55:34 SIGN PAINTER by Sly Palencia M.D.
[2023-11-12 11:06] LABS: Alveolar/Arterial O2 Gradient 540.8 mmHg; Base Excess ABG -1.5 mEq/l (+/-2.0); Fractional Inspired Oxygen 100 %; HCO3 ABG 22.1 mEq/l (22.0-26.0); Oxygen Content ABG 17.5 %vol (16.0-22.0); Oxygen Saturation ABG 98.8 % (95.0-100.0); Oxyhemoglobin 97.6 % THb (90.0-100.0); PCO2 ABG 33.8 mmHg (35.0-45.0); PO2 ABG 138.4 mmHg (80.0-100.0); PO2 FiO2 Ratio Arterial Blood 1.38 %; Total Hemoglobin 12.6 g/dL (12.0-18.0); pH ABG 7.433 (7.350-7.450)
[2023-11-12 11:26] LABS: Device NON-INVASIVE VENT; Non-Invasive Expiratory Pressure 8 CMH2O; Non-Invasive Inspiratory Pressure 16 CMH2O; Non-Invasive Vent Rate 12 /MIN; Site Drawn RIGHT BRACHIAL
--- NOTE | 2023-11-12 11:38 | WPDCNINT ---
Assessment and Plan Assessment and plan (1) Acute respiratory failure: Code(s): J96.00 - Acute respiratory failure, unspecified whether with hypoxia or hypercapnia Status: Acute Assessment and Plan: Acute respiratory failure which is multifactorial likely secondary to COPD exacerbation, possible pneumonia could be aspiration, rule out PE, rule out [place] Patient placed on BiPAP at this time. He is DNR DNI Start Solu-Medrol and bronchodilators CTA chest once patient is stabilized. Not a candidate for empiric anticoagulation due to gastric ulcer and recent GI bleed Pain control Precedex for alcohol withdrawal Cultures, add empiric Zosyn. Patient on azithromycin Screen for COVID influenza and RSV (2) Upper GI bleed: Code(s): K92.2 - Gastrointestinal hemorrhage, unspecified Status: Acute Assessment and Plan: Patient presented with GI bleed and was found to be having gastric ulcer, varices and gastritis. Colonoscopy showed polyps and diverticulosis Continue IV PPI Monitor hemoglobin and transfuse if needed (3) Alcohol withdrawal: Code(s): F10.939 - Alcohol use, unspecified with withdrawal, unspecified Status: Acute Assessment and Plan: Patient daughter claims that he has not had alcohol for many days patient is a heavy alcohol drinker. At this time due to COPD exacerbation tachycardia and agitation it is hard to differentiate Will start patient on Precedex infusion to help with anxiety alcohol withdrawal and allow him to tolerate BiPAP Continue thiamine and folic acid and change to IV (4) Chest pain: Code(s): R07.9 - Chest pain, unspecified Status: Acute Assessment and Plan: Could be cardiac versus pleural versus PE EKG shows no ST elevation Troponins ordered Will give aspirin but hold anticoagulation due to gastric ulcer and GI bleed Check CTA of lung once patient is stabilized P.r.n. morphine Check lipase (5) Acute blood loss anemia: Code(s): D62 - Acute posthemorrhagic anemia Status: Acute Assessment and Plan: See above (6) Hepatitis C: Code(s): B19.20 - Unspecified viral hepatitis C without hepatic coma Status: Acute Assessment and Plan: See above (7) Cirrhosis: Code(s): K74.60 - Unspecified cirrhosis of liver Status: Acute Assessment and Plan: Secondary to alcohol liver disease and hepatitis C GI following (8) COPD exacerbation: Code(s): J44.1 - Chronic obstructive pulmonary disease with (acute) exacerbation Status: Acute Assessment and Plan: See above (9) Pneumonia: Code(s): J18.9 - Pneumonia, unspecified organism Status: Acute Assessment and Plan: See above (10) Abdominal pain: Code(s): R10.9 - Unspecified abdominal pain Status: Acute Assessment and Plan: KUB was done to rule out any free air. Check lipase CT scan of abdomen once patient stabilized (11) Hypotension: Code(s): I95.9 - Hypotension, unspecified Status: Acute Assessment and Plan: Blood pressure dropped after patient received morphine and Lopressor. IV fluid bolus May need vasopressors Check lactic acid level Plan DVT prophylaxis -SCDs Stress ulcer prophylaxis -PPI Nutrition -npo Code Status -I spoke to patient's daughter in detail and she requests the patient be made DNR DNI as per his wishes which he has clearly shared with her Total Critical Care Time - 100 minutes Due to a high probability of clinically significant, life threatening deterioration, the patient required my highest level of preparedness to intervene emergently and I personally spent this critical care time directly and personally managing the patient. This critical care time included obtaining a history; examining the patient; pulse oximetry; ordering and review of studies; arranging urgent treatment with development of a management plan; evaluation of patient's response to
[2023-11-12 11:39] LABS: Hematocrit 39.7 % (42.0-52.0); Mean Corpuscular HGB Conc 30.2 g/dl (32-36); Mean Corpuscular Hemoglobin 31.2 pg (26-34); Mean Corpuscular Volume 103.1 fl (80-100); Mean Platelet Volume 10.3 fl (7.4-10.4); Platelet Count Result 480 k/mm3 (150-375); Red Blood Count 3.85 M/mm3 (4.6-6.20); Red Cell Distribution Width 17.7 % (11.5-14.5); White Blood Count 3.8 K/mm3 (4.5-10.0)
[2023-11-12 11:55] LABS: Alanine Aminotransferase 45 U/L (6-50); Albumin Level 2.7 g/dL (3.5-5.1); Alkaline Phosphatase 261 U/L (38-126); Anion Gap 6 mmol/L (8-16); Aspartate Amino Transferase 149 U/L (17-59); Bilirubin,Total 2.4 mg/dL (0.2-1.3); Blood Urea Nitrogen 6 mg/dL (9-20); Calcium 7.8 mg/dL (8.4-10.2); Carbon Dioxide 23 mmol/L (22-30); Chloride 107 mmol/L (98-107); Estimated CRCL calculation 61 ml/min; Estimated Glomerular Filt Rate > 60; Glucose 64 mg/dL (65-110); Lipase 369 U/L (23-300); Magnesium 1.9 mg/dL (1.6-2.3); Potassium 3.7 mmol/L (3.4-5.0); Sodium 136 mmol/L (137-145)
[2023-11-12 11:58] LABS: Lactic Acid Reflex 4.5 mmol/L (0.7-2.0)
[2023-11-12] MEDS: LACTATED RINGERS 1,000 ML 100 ML IV CONT ×2 (11:59→17:06)
[2023-11-12] MEDS: methylPREDNISolone SOD SUCC 125 MG VIAL 60 MG IV PUSH (12:02)
[2023-11-12 12:03] LABS: Influenza A QL RT-PCR Negative (Negative); Influenza B QL RT-PCR Negative (Negative); RSV RNA, RT-PCR Negative (Negative); SARS-CoV-2 RNA PCR Negative (Negative)
[2023-11-12] MEDS: PIPERACILLN/TAZ 3.375GM/NS50ML 3.375 GM/50 ML BAG IVPB ×2 (12:03→17:18)
[2023-11-12 12:06] LABS: Troponin I < 0.012 ng/mL (0.000-0.034)
[2023-11-12] MEDS: NOREPINEPHRINE 8 MG/D5W 250 ML 8 MG/250 ML BAG 9.38 MG IV CONT (12:42)
--- NOTE | 2023-11-12 13:03 | WPDGIPROGNO ---
Progress Note: A&P Assessment and Plan (1) Upper GI bleed: Code(s): K92.2 - Gastrointestinal hemorrhage, unspecified Status: Acute Assessment and Plan: resolved, no sign of bleeding yesterday had small non bleeding gastric ulcer also small size EV- no bleeding and no need of endoscopic intervention egd in 1 year (2) Alcohol withdrawal: Code(s): F10.939 - Alcohol use, unspecified with withdrawal, unspecified Status: Acute Assessment and Plan: he became more agitated, also possible pulmonary edema/Pneumonia/copd now on bipap and he is in ICU (3) Gastric ulcer: Code(s): K25.9 - Gastric ulcer, unspecified as acute or chronic, without hemorrhage or perforation Status: Acute Assessment and Plan: ppi (4) Cirrhosis: Code(s): K74.60 - Unspecified cirrhosis of liver Status: Acute Assessment and Plan: alcohol use pending hcv panel (5) Acute on chronic blood loss anemia: Code(s): D62 - Acute posthemorrhagic anemia Status: Acute Assessment and Plan: h/h stable, no more bleeding (6) Transaminitis: Code(s): R74.01 - Elevation of levels of liver transaminase levels Status: Acute Assessment and Plan: cirrhosis monitor (7) Acute respiratory failure: Code(s): J96.00 - Acute respiratory failure, unspecified whether with hypoxia or hypercapnia Status: Acute Assessment and Plan: by manager dialysis (8) COPD exacerbation: Code(s): J44.1 - Chronic obstructive pulmonary disease with (acute) exacerbation Status: Acute (9) Pneumonia: Code(s): J18.9 - Pneumonia, unspecified organism Status: Acute (10) Hypotension: Code(s): I95.9 - Hypotension, unspecified Status: Acute (11) Colon polyps: Code(s): K63.5 - Polyp of colon Status: Acute (12) Mass of urinary bladder: Code(s): N32.89 - Other specified disorders of bladder Status: Acute Subjective Date/time seen: 11/12/23 13:03 Interval history: yesterday with respiratory distress, agitated and started on bipap, moved to ICU. Also low SBO and started on levophed, no more GIB, hgb stable egd with small non bleeding gastric ulcer, small EV, also had multiple colon poyps removed, no signs of bleeding. Review of Systems Review of Systems: All systems reviewed & are unremarkable except as noted in HPI and below Exam Narrative: General: Pt is alert awake but in respiratory distress ENT: bipap in place Lungs/Chest: Trachea central , tachypnea use of accessory muscles, respiratory distress, bilateral wheezing, overall decreased air movement throughout Cardiac: Tachycardia,. Normal S1 S2. No murmurs Circulation: Pedal pulses are intact and symmetrical. Abdomen: Normal bowel sounds. Soft. ND. Extremities: No clubbing, cyanosis or edema. Warm : Singlet[place] in place Neurologic: Follows commands. Moves all 4 extremities PERRL alert awake but mildly confused Skin: No Rash Objective Data Vital Signs Vital Signs: Vital Signs - 24 hr 11/11/23 13:44 11/11/23 14:55 11/11/23 16:04 Temperature 97.4 F L Pulse Rate 87 99 Respiratory Rate 18 Blood Pressure 112/57 L Pulse Oximetry 100 97 Oxygen Delivery Nasal Cannula Oxygen Flow Rate 5 11/11/23 19:24 11/12/23 05:14 11/11/23 20:00 Temperature 97.6 F 97.6 F Pulse Rate 99 86 Respiratory Rate 16 16 Blood Pressure 120/55 L 103/57 L Pulse Oximetry 98 98 96 Oxygen Delivery Nasal Cannula Oxygen Flow Rate 5 11/12/23 00:00 11/12/23 04:00 11/12/23 07:51 Temperature Pulse Rate 92 86 Respiratory Rate Blood Pressure Pulse Oximetry 96 Oxygen Delivery Nasal Cannula Oxygen Flow Rate 5 11/12/23 10:30 11/12/23 10:40 11/12/23 12:42 Temperature Pulse Rate 125 H 170 H 112 H Respiratory Rate Blood Pressure 70/55 L Pulse Oximetry 99 Oxygen Delivery BiPAP Oxygen Flow Rate Intake/Output In
[2023-11-12] MEDS: PERFLUTREN LIPID MICROSPHERES 1.5 ML VIAL DILUTED TO 10 ML TOTAL VOLUME IV PUSH (13:30)
[2023-11-12] MEDS: IPRATROPIUM BR 0.02% INH SOLN 0.5 MG/2.5 ML VIAL INHALATION ×2 (13:34→20:55)
[2023-11-12] MEDS: LEVALBUTEROL NEB 1.25 MG/3 ML INHALATION ×2 (13:34→20:55)
--- NOTE | 2023-11-12 13:57 | PC.NURSE ---
Attempted to notify provider, Roselia Brewer, of changes on patient telemetry at 1735, HR elevated near 20 beats per minute, now tachycardic. Left message. No response from provider. Attempted to notify provider, Roselia Brewer, again of change in telemetry at 1800, left message again. No response from provider. Will continue to monitor.
[2023-11-12] MEDS: CENTRAL LINE FLUSH 10 ML IV PUSH ×2 (14:33→22:32)
[2023-11-12 14:36] LABS: Reflex Lactic Acid Yes or No Add Lactic
[2023-11-12] MEDS: ACETAMINOPHEN 500 MG TABLET 1000 MG PO (14:57)
[2023-11-12 15:10] LABS: NT Pro B Type Natriuretic Pept 498 pg/mL (19.9-100)
[2023-11-12 16:35] LABS: Troponin I < 0.012 ng/mL (0.000-0.034)
[2023-11-12] MEDS: PANTOPRAZOLE SODIUM IV 40 MG VIAL IV PUSH (21:03)
[2023-11-12] MEDS: NOREPINEPHRINE 8 MG/D5W 250 ML 8 MG/250 ML BAG 37.5 MG IV CONT (22:31)
[2023-11-13] VITALS (32 sets, daily range): BP systolic 64–115; BP diastolic 47–70; PULSE 77–787; RESP 12–25; TEMP 35.8–36.9; O2SAT 90–99
[2023-11-13] MEDS: PIPERACILLN/TAZ 3.375GM/NS50ML 3.375 GM/50 ML BAG IVPB ×5 (00:03→23:00)
[2023-11-13] MEDS: LEVALBUTEROL NEB 1.25 MG/3 ML INHALATION ×4 (02:48→20:39)
[2023-11-13] MEDS: IPRATROPIUM BR 0.02% INH SOLN 0.5 MG/2.5 ML VIAL INHALATION ×4 (02:48→20:39)
[2023-11-13] MEDS: LACTATED RINGERS 1,000 ML 100 ML IV CONT (03:15)
[2023-11-13] MEDS: CENTRAL LINE FLUSH 10 ML IV PUSH ×3 (05:26→20:00)
[2023-11-13 05:39] LABS: Hematocrit 34.7 % (42.0-52.0); Hemoglobin 10.5 g/dL (14.0-18.0); Mean Corpuscular HGB Conc 30.3 g/dl (32-36); Mean Corpuscular Hemoglobin 31.4 pg (26-34); Mean Corpuscular Volume 103.9 fl (80-100); Mean Platelet Volume 10.4 fl (7.4-10.4); Platelet Count Result 420 k/mm3 (150-375); Red Blood Count 3.34 M/mm3 (4.6-6.20); Red Cell Distribution Width 17.4 % (11.5-14.5); White Blood Count 49.3 K/mm3 (4.5-10.0)
[2023-11-13 05:57] LABS: Albumin Level 2.5 g/dL (3.5-5.1); Alkaline Phosphatase 170 U/L (38-126); Anion Gap 8 mmol/L (8-16); Aspartate Amino Transferase 153 U/L (17-59); Bilirubin,Total 1.9 mg/dL (0.2-1.3); Blood Urea Nitrogen 12 mg/dL (9-20); Calcium 7.6 mg/dL (8.4-10.2); Carbon Dioxide 19 mmol/L (22-30); Chloride 109 mmol/L (98-107); Estimated CRCL calculation 48 ml/min; Estimated Glomerular Filt Rate 54; Glucose 151 mg/dL (65-110); Magnesium 1.9 mg/dL (1.6-2.3); Potassium 4.2 mmol/L (3.4-5.0); Sodium 136 mmol/L (137-145)
[2023-11-13 06:03] LABS: Alanine Aminotransferase 63 U/L (6-50); Troponin I < 0.012 ng/mL (0.000-0.034)
[2023-11-13] MEDS: LEVOTHYROXINE SODIUM 88 MCG TABLET BY MOUTH (08:00)
[2023-11-13] MEDS: THIAMINE HCL 200 MG/2 ML VIAL 100 MG IV PUSH (08:00)
[2023-11-13] MEDS: methylPREDNISolone SOD SUCC 125 MG VIAL 60 MG IV PUSH (08:05)
[2023-11-13] MEDS: PANTOPRAZOLE SODIUM IV 40 MG VIAL IV PUSH ×2 (08:05→20:00)
[2023-11-13] MEDS: AZITHROMYCIN 250 MG TABLET PO (08:05)
--- NOTE | 2023-11-13 09:41 | WPDINTPN ---
Progress Note: A&P Assessment and Plan (1) Acute respiratory failure: Code(s): J96.00 - Acute respiratory failure, unspecified whether with hypoxia or hypercapnia Status: Acute Assessment and Plan: Acute respiratory failure which is multifactorial likely secondary to COPD exacerbation and pneumonia could be aspiration, CTA negative for PE Troponins negative Patient placed on BiPAP on admission to ICU. He is DNR DNI He has been now weaned to nasal cannula. Continue BiPAP p.r.n. and at night Continue solu-Medrol and bronchodilators CTA chest once patient is stabilized. Not a candidate for empiric anticoagulation due to gastric ulcer and recent GI bleed Pain control Precedex for alcohol withdrawal Cultures done and pending, a continue Zosyn and azithromycin Screen for COVID influenza and RSV was negative Chest CTA No CT evidence of acute pulmonary embolus. 1.4 x 0.6 cm endobronchial lesion in the distal left mainstem bronchus, which is a new finding since the chest CT of 06/01/2023. Consider bronchoscopy. Subsegmental right upper lobe and right lower lobe opacities, likely atelectasis or infection, with trace right pleural effusion and right hilar lymphadenopathy. Consider follow-up CT to ensure resolution. Stable medial left upper lobe pulmonary nodule, recommend reassessment at the above recommended follow-up CT Cirrhosis. Small volume ascites Small volume pericholecystic fluid, a nonspecific finding in the setting of chronic liver disease. The previously described bladder mass was not visualized due to an empty urinary bladder. (2) Upper GI bleed: Code(s): K92.2 - Gastrointestinal hemorrhage, unspecified Status: Acute Assessment and Plan: Patient presented with GI bleed and was found to be having gastric ulcer, varices and gastritis. Colonoscopy showed polyps and diverticulosis Continue IV PPI Monitor hemoglobin and transfuse if needed (3) Alcohol withdrawal: Code(s): F10.939 - Alcohol use, unspecified with withdrawal, unspecified Status: Acute Assessment and Plan: P.r.n. Ativan ordered Continue thiamine and folic acid (4) Chest pain: Code(s): R07.9 - Chest pain, unspecified Status: Acute Assessment and Plan: Likely pleuritic pain EKG shows no ST elevation Troponins ordered and were negative Continue aspirin CTA negative for PE P.r.n. morphine Lipase mildly elevated (5) Acute blood loss anemia: Code(s): D62 - Acute posthemorrhagic anemia Status: Acute Assessment and Plan: See above (6) Hepatitis C: Code(s): B19.20 - Unspecified viral hepatitis C without hepatic coma Status: Acute Assessment and Plan: See above (7) Cirrhosis: Code(s): K74.60 - Unspecified cirrhosis of liver Status: Acute Assessment and Plan: Secondary to alcohol liver disease and hepatitis C GI following (8) COPD exacerbation: Code(s): J44.1 - Chronic obstructive pulmonary disease with (acute) exacerbation Status: Acute Assessment and Plan: See above (9) Pneumonia: Code(s): J18.9 - Pneumonia, unspecified organism Status: Acute Assessment and Plan: See above (10) Abdominal pain: Code(s): R10.9 - Unspecified abdominal pain Status: Acute Assessment and Plan: KUB was negative for free air. Lipase mildly elevated CT scan of abdomen unremarkable except chronic problems (11) Hypotension: Code(s): I95.9 - Hypotension, unspecified Status: Acute Assessment and Plan: Blood pressure dropped after patient received morphine and Lopressor. IV fluid bolus was given Patient on Levophed drip Lactic acid level was elevated Continue Levophed titration (12) Endobronchial mass: Code(s): R91.8 - Other nonspecific abnormal finding of lung field Status: Acute Assessment and Plan: Consult pulmonary Plan DVT prophylaxis -SCDs Stress ulc
[2023-11-13] MEDS: FOLIC ACID 1 MG/0.2 ML INJ IV PUSH (10:27)
[2023-11-13] MEDS: NOREPINEPHRINE 8 MG/D5W 250 ML 8 MG/250 ML BAG 15 MG IV CONT (11:37)
--- NOTE | 2023-11-13 11:45 | WPDGIPROGNO ---
Progress Note: A&P Assessment and Plan (1) Upper GI bleed: Code(s): K92.2 - Gastrointestinal hemorrhage, unspecified Status: Acute Assessment and Plan: resolved, no more bleeding and h/h has been stable ppi daily had small non bleeding gastric ulcer also small size EV- no bleeding and no need of endoscopic intervention egd in 1 year (2) Alcohol withdrawal: Code(s): F10.939 - Alcohol use, unspecified with withdrawal, unspecified Status: Acute Assessment and Plan: thiamine, supportive care he is more comfortable today (3) Gastric ulcer: Code(s): K25.9 - Gastric ulcer, unspecified as acute or chronic, without hemorrhage or perforation Status: Acute Assessment and Plan: ppi (4) Endobronchial mass: Code(s): R91.8 - Other nonspecific abnormal finding of lung field Status: Acute Assessment and Plan: new finding probably will need pulmonary consult and bronchoscopy (5) Cirrhosis: Code(s): K74.60 - Unspecified cirrhosis of liver Status: Acute Assessment and Plan: alcohol use pending hcv panel (6) Acute on chronic blood loss anemia: Code(s): D62 - Acute posthemorrhagic anemia Status: Acute Assessment and Plan: h/h stable, no more bleeding (7) Transaminitis: Code(s): R74.01 - Elevation of levels of liver transaminase levels Status: Acute Assessment and Plan: cirrhosis monitor (8) Acute respiratory failure: Code(s): J96.00 - Acute respiratory failure, unspecified whether with hypoxia or hypercapnia Status: Acute Assessment and Plan: by electrical engineer (9) COPD exacerbation: Code(s): J44.1 - Chronic obstructive pulmonary disease with (acute) exacerbation Status: Acute (10) Pneumonia: Code(s): J18.9 - Pneumonia, unspecified organism Status: Acute Assessment and Plan: on abx (11) Hypotension: Code(s): I95.9 - Hypotension, unspecified Status: Acute Assessment and Plan: still on levophed (12) Colon polyps: Code(s): K63.5 - Polyp of colon Status: Acute (13) Mass of urinary bladder: Code(s): N32.89 - Other specified disorders of bladder Status: Acute Assessment and Plan: urology on board, had cystoscopy noted blood in urine (daniels) Subjective Date/time seen: 11/13/23 11:45 Interval history: respiratory distress improved, still low BP on levophed no signs of GIB, h/h stable hematuria (he has daniels in place) family at bedside Review of Systems Review of Systems: All systems reviewed & are unremarkable except as noted in HPI and below Exam Const: Other: more comfortable HENMT: Face/Nose/Sinus: Normal nares present Other: using NC oxygen Eyes: General: appearance normal, both eyes and all related structures Neck: Neck: supple Resp: Other: few rales Cardio: Rate: regular rate GI: GI Palp: Yes Soft to palpation, No Tenderness to palpation present (GI) and No Guarding due to palpation present (GI) Auscultation: normal bowel sounds Urinary Catheter: Urinary Catheter: urine red Skin: General skin exam: no rashes or lesions noted Neuro: Speech: normal speech Motor exam (neuro): 5/5 motor strength present throughout Extrem: General: normal to inspection Psych: Thought content: No Hallucination(s) present Objective Data Vital Signs Vital Signs: Vital Signs - 24 hr 11/12/23 12:42 11/12/23 13:23 11/12/23 13:38 Temperature Pulse Rate 112 H 105 H 108 H Respiratory Rate 20 Blood Pressure 70/55 L 76/54 L Pulse Oximetry Oxygen Delivery Oxygen Flow Rate Fraction of Inspired Oxygen 11/12/23 13:40 11/12/23 13:44 11/12/23 13:37 Temperature Pulse Rate 110 H 101 H 108 H Respiratory Rate 18 17 Blood Pressure 60/54 L Pulse Oximetry 95 Oxygen Delivery BiPAP Oxygen Flow Rate Fraction of Inspired Oxygen
[2023-11-13] MEDS: FLUTICASONE/UMECLIDIN/VILANTER 100-62.5-25 MCG ELLIPTA 1 PUFF INHALATION (12:15)
--- NOTE | 2023-11-13 13:54 | PM.CNPUL ---
Assessment and Plan Assessment and plan (1) Endobronchial mass: Code(s): R91.8 - Other nonspecific abnormal finding of lung field Status: Acute Assessment and Plan: He has a left mainstem bronchus lesion which is 1.4 x 0.6 cm seen on a chest CT November 12 2023, was not present on 06/01/2023. This is concerning for malignancy. He is not stable at this time due to hypotension on Levophed, alcohol withdrawal, coagulopathy with elevated PT PTT, and other acute problems such as his suspected pneumonia probably due to aspiration with infiltrate in the right lung, GI bleed. Bronchoscopy at this time would certainly run the risk of intubation. He has severe COPD. Doing bronchoscopy while he is in the hospital may be safer but he is not quite stable enough and doing a bronchoscopy now may lead to more common complications. I talked with the patient and he said if he has lung cancer he does want to know. He has had screening CT scans for several years. He also had a PET scan a few years ago, this showed an abnormal area in the right lung. He had a procedure, either a CT guided biopsy or bronchoscopy at [facility] with a right pneumothorax after the procedure. At the time, said he would never have another biopsy. He is more open to having a possible cancer diagnosed. He also has a suspicious lesion in the superior bladder, seen on cryptoscopy, not biopsied. We may consider a PET scan after discharge when he is more stable. 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 This was in a note by stone engraver Dr. Shaheed Romero at [facility] at [address] [place] [address] in [facility]. He is on levalbuterol and ipratropium nebulized, as well as Solu-Medrol 60 mg IV q.6 hours. He will be able to transition to inhalers after his acute processes stabilize. He is requesting a nebulizer for home use, is on Trelegy once a day at home, a triple therapy COPD inhaler, and albuterol p.r.n. which he uses several times a day. (3) Acute and chronic respiratory failure with hypoxia: Code(s): J96.21 - Acute and chronic respiratory failure with hypoxia Status: Acute Assessment and Plan: He says that he has been on oxygen 5 L a minute since 2010 however the office notes that I reviewed from [address] Shahnaz Mueller through [address] Sahheed Romero did not mention O2. He was on O2 5 L/min aroudn the clock before this admission. His arterial blood gas this admission showed a pH of 7.433, pCO2 33.8, PO2 138.4, H CO 3 is 22.1 saturation 97.6% on 100% oxygen with elevated A-a gradient 540.8. His oxygenation is improved significantly, he is currently on nasal cannula 2 L a minute with a saturation between 90-94%. He is probably using too much oxygen at home. He does not have any CO2 retention. His oxygenation can be followed, he is on very low-flow oxygen currently so oxygenation is not an acute issue any longer History of Present Illness History of Present Illness Consult date: 11/13/23 Requesting physician: Dexter Victor MD Chief complaint: Left endobronchial lesion Narrative: patient was seen at 13:30 Nov 13, 2023 ICU 7 NEW: Brennon Multani is a 78-year-old man admitted Dec 14 with incontinence of black tarry stool, GI bleeding, had endoscopy which showed gastric ulcer, varices and gastritis. He is an alcoholic, drinks a 5th of whiskey every day. A CT scan of the abdomen/pelvis showed a 2.1 cm urinary bladder mass at the superior wall, suspicious for bladder cancer, but this was not bio
[2023-11-13] MEDS: traZODone HCL 50 MG TABLET PO (21:47)
[2023-11-14] VITALS (26 sets, daily range): BP systolic 82–126; BP diastolic 55–93; PULSE 90–115; RESP 10–24; TEMP 36.4–36.9; O2SAT 90–95
--- NOTE | 2023-11-14 01:53 | PC.NURSE ---
The patient's insulin pump profile reads as follows: Time 0001 1u Basal 1:30 Correct 1:5 Carb 110 Target BG Time 0300 1.55u Basal 1:30 Correct 1:5 Carb 110 Target BG Time 0800 1u Basal 1:30 Correct 1:5 Carb 110 Target BG Time 1900 1u Basal 1:30 Correct 1:5 Carb 110 Target BG
[2023-11-14] MEDS: LEVALBUTEROL NEB 1.25 MG/3 ML INHALATION ×4 (02:00→20:29)
[2023-11-14] MEDS: IPRATROPIUM BR 0.02% INH SOLN 0.5 MG/2.5 ML VIAL INHALATION ×4 (02:01→20:29)
[2023-11-14] MEDS: PIPERACILLN/TAZ 3.375GM/NS50ML 3.375 GM/50 ML BAG IVPB ×4 (05:24→23:24)
[2023-11-14] MEDS: CENTRAL LINE FLUSH 10 ML IV PUSH ×3 (05:29→20:50)
[2023-11-14 05:53] LABS: Hematocrit 29.3 % (42.0-52.0); Hemoglobin 9.1 g/dL (14.0-18.0); Mean Corpuscular HGB Conc 31.1 g/dl (32-36); Mean Corpuscular Hemoglobin 30.8 pg (26-34); Mean Corpuscular Volume 99.3 fl (80-100); Mean Platelet Volume 10.4 fl (7.4-10.4); Platelet Count Result 284 k/mm3 (150-375); Red Blood Count 2.95 M/mm3 (4.6-6.20); Red Cell Distribution Width 17.2 % (11.5-14.5); White Blood Count 29.8 K/mm3 (4.5-10.0)
[2023-11-14 06:16] LABS: Alanine Aminotransferase 38 U/L (6-50); Albumin Level 2.2 g/dL (3.5-5.1); Alkaline Phosphatase 174 U/L (38-126); Anion Gap 4 mmol/L (8-16); Aspartate Amino Transferase 83 U/L (17-59); Bilirubin,Total 1.1 mg/dL (0.2-1.3); Blood Urea Nitrogen 19 mg/dL (9-20); Calcium 7.6 mg/dL (8.4-10.2); Carbon Dioxide 26 mmol/L (22-30); Chloride 104 mmol/L (98-107); Estimated CRCL calculation 56 ml/min; Estimated Glomerular Filt Rate > 60; Glucose 144 mg/dL (65-110); Magnesium 1.9 mg/dL (1.6-2.3); Potassium 3.7 mmol/L (3.4-5.0); Sodium 134 mmol/L (137-145)
[2023-11-14] MEDS: LEVOTHYROXINE SODIUM 88 MCG TABLET BY MOUTH (06:16)
[2023-11-14] MEDS: FLUTICASONE/UMECLIDIN/VILANTER 100-62.5-25 MCG ELLIPTA 1 PUFF INHALATION (07:10)
[2023-11-14] MEDS: FOLIC ACID 1 MG/0.2 ML INJ IV PUSH (09:01)
[2023-11-14] MEDS: AZITHROMYCIN 250 MG TABLET PO (09:01)
[2023-11-14] MEDS: POTASSIUM CHLORIDE 20 MEQ PACKET (FOR LIQUID) 40 MEQ PO (09:01)
[2023-11-14] MEDS: THIAMINE HCL 200 MG/2 ML VIAL 100 MG IV PUSH (09:02)
[2023-11-14] MEDS: MIDODRINE HCL 10 MG TABLET PO ×3 (09:02→17:56)
[2023-11-14] MEDS: methylPREDNISolone SOD SUCC 125 MG VIAL 60 MG IV PUSH (09:02)
[2023-11-14] MEDS: PANTOPRAZOLE SODIUM IV 40 MG VIAL IV PUSH ×2 (09:02→20:50)
--- NOTE | 2023-11-14 09:29 | WPDINTPN ---
Progress Note: A&P Assessment and Plan (1) Acute respiratory failure: Code(s): J96.00 - Acute respiratory failure, unspecified whether with hypoxia or hypercapnia Status: Acute Assessment and Plan: Acute respiratory failure which is multifactorial likely secondary to COPD exacerbation and pneumonia could be aspiration, CTA negative for PE Troponins negative Patient placed on BiPAP on admission to ICU. He is DNR DNI He has been now weaned to nasal cannula. Continue BiPAP p.r.n. and at night Continue solu-Medrol and bronchodilators Cultures done and pending, a continue Zosyn and azithromycin Screen for COVID influenza and RSV was negative Chest CTA No CT evidence of acute pulmonary embolus. 1.4 x 0.6 cm endobronchial lesion in the distal left mainstem bronchus, which is a new finding since the chest CT of 06/01/2023. Consider bronchoscopy. Subsegmental right upper lobe and right lower lobe opacities, likely atelectasis or infection, with trace right pleural effusion and right hilar lymphadenopathy. Consider follow-up CT to ensure resolution. Stable medial left upper lobe pulmonary nodule, recommend reassessment at the above recommended follow-up CT Cirrhosis. Small volume ascites Small volume pericholecystic fluid, a nonspecific finding in the setting of chronic liver disease. The previously described bladder mass was not visualized due to an empty urinary bladder. Incentive spirometry (2) Upper GI bleed: Code(s): K92.2 - Gastrointestinal hemorrhage, unspecified Status: Acute Assessment and Plan: Patient presented with GI bleed and was found to be having gastric ulcer, varices and gastritis. Colonoscopy showed polyps and diverticulosis Continue IV PPI Monitor hemoglobin and transfuse if needed (3) Alcohol withdrawal: Code(s): F10.939 - Alcohol use, unspecified with withdrawal, unspecified Status: Acute Assessment and Plan: P.r.n. Ativan is ordered but he has not required any and appears to be out of end of alcohol withdrawal I will discontinue Ativan Continue thiamine and folic acid (4) Chest pain: Code(s): R07.9 - Chest pain, unspecified Status: Acute Assessment and Plan: Likely pleuritic pain EKG shows no ST elevation Troponins ordered and were negative Continue aspirin CTA negative for PE P.r.n. morphine Lipase mildly elevated (5) Acute blood loss anemia: Code(s): D62 - Acute posthemorrhagic anemia Status: Acute Assessment and Plan: See above (6) Hepatitis C: Code(s): B19.20 - Unspecified viral hepatitis C without hepatic coma Status: Acute Assessment and Plan: See above (7) Cirrhosis: Code(s): K74.60 - Unspecified cirrhosis of liver Status: Acute Assessment and Plan: Secondary to alcohol liver disease and hepatitis C GI following (8) COPD exacerbation: Code(s): J44.1 - Chronic obstructive pulmonary disease with (acute) exacerbation Status: Acute Assessment and Plan: See above (9) Pneumonia: Code(s): J18.9 - Pneumonia, unspecified organism Status: Acute Assessment and Plan: See above (10) Abdominal pain: Code(s): R10.9 - Unspecified abdominal pain Status: Acute Assessment and Plan: KUB was negative for free air. Lipase mildly elevated CT scan of abdomen unremarkable except chronic problems (11) Hypotension: Code(s): I95.9 - Hypotension, unspecified Status: Acute Assessment and Plan: Blood pressure dropped after patient received morphine and Lopressor. IV fluid bolus was given Patient on Levophed drip Lactic acid level was elevated Continue Levophed titration (12) Endobronchial mass: Code(s): R91.8 - Other nonspecific abnormal finding of lung field Status: Acute Assessment and Plan: Patient was evaluated by Pulmonary. Plan for bronchoscopy sometime this week once he is clinical
[2023-11-14 12:01] LABS: Hepatitis C Viral RNA PCR <15 IU/mL
--- NOTE | 2023-11-14 14:00 | IVDEFINITY ---
Prior to administration of IV Definity the patient was educated on the risks and benefits of the imaging enhancing agent including potential adverse side effects. The patient verbalized understanding. Allergies were verified. No exclusion criteria were identified and at least one of the following inclusion criteria were met: 1) physician request, 2) patient technically difficult to image (per the [place] [employer] guidelines of two or more segments not discernable within the apical view), or 3) questionable left ventricular function. ?
--- NOTE | 2023-11-14 15:49 | WPDGIPROGNO ---
Progress Note: A&P Assessment and Plan (1) Sepsis: Code(s): A41.9 - Sepsis, unspecified organism Status: Acute Assessment and Plan: few days ago transferred with respiratory distress, he was hypotensive and blood culture + GNR better, off levophen, on iv antibiotics still with leukocytosis (49k yesterday- today 29k) (2) Upper GI bleed: Code(s): K92.2 - Gastrointestinal hemorrhage, unspecified Status: Acute Assessment and Plan: resolved, no more bleeding and h/h has been stable continue with ppi daily had small non bleeding gastric ulcer also small size EV- no bleeding and no need of endoscopic intervention egd in 1 year will follow as needed (3) Alcohol withdrawal: Code(s): F10.939 - Alcohol use, unspecified with withdrawal, unspecified Status: Acute Assessment and Plan: thiamine, supportive care he is more comfortable today (4) Gastric ulcer: Code(s): K25.9 - Gastric ulcer, unspecified as acute or chronic, without hemorrhage or perforation Status: Acute Assessment and Plan: ppi (5) Endobronchial mass: Code(s): R91.8 - Other nonspecific abnormal finding of lung field Status: Acute Assessment and Plan: new finding bronchoscopy when more stable (6) Cirrhosis: Code(s): K74.60 - Unspecified cirrhosis of liver Status: Acute Assessment and Plan: alcohol use pending hcv panel (7) Acute on chronic blood loss anemia: Code(s): D62 - Acute posthemorrhagic anemia Status: Acute Assessment and Plan: no more bleeding (8) Transaminitis: Code(s): R74.01 - Elevation of levels of liver transaminase levels Status: Acute Assessment and Plan: cirrhosis monitor (9) Pneumonia: Code(s): J18.9 - Pneumonia, unspecified organism Status: Acute Assessment and Plan: on abx (10) Colon polyps: Code(s): K63.5 - Polyp of colon Status: Acute (11) Mass of urinary bladder: Code(s): N32.89 - Other specified disorders of bladder Status: Acute Assessment and Plan: urology on board, had cystoscopy (12) Bacteremia: Code(s): R78.81 - Bacteremia Status: Acute Assessment and Plan: GNR on antibiotics Subjective Date/time seen: 11/14/23 15:49 Interval history: off levophed, breathing better Blood culture + GNR no report of gib Review of Systems Review of Systems: All systems reviewed & are unremarkable except as noted in HPI and below Exam Narrative: General: Pt is alert awake and in no respiratory distress Pupil: reactive Neck: supple Lungs/Chest: Trachea central , no respiratory distress, occasional wheezing, overall decreased air movement throughout Cardiac: Normal S1 S2. Circulation: Pedal pulses are intact and symmetrical. Abdomen: Normal bowel sounds. Soft. ND. No tenderness Extremities: No clubbing, cyanosis or edema. Warm : Singletary in place Neurologic: Follows commands. Moves all 4 extremities PERRL alert awake oriented x3 Skin: No Rash Objective Data Vital Signs Vital Signs: Vital Signs - 24 hr 11/13/23 16:00 11/13/23 16:00 11/13/23 16:00 Temperature 98.1 F Pulse Rate 101 H 104 H Respiratory Rate 12 Blood Pressure 96/55 L 96/55 L Pulse Oximetry 94 Oxygen Delivery Oxygen Flow Rate Fraction of Inspired Oxygen 11/13/23 16:00 11/13/23 18:05 11/13/23 18:00 Temperature 98.2 F Pulse Rate 100 98 Respiratory Rate 13 Blood Pressure 107/66 107/66 Pulse Oximetry 93 94 Oxygen Delivery Nasal Cannula Oxygen Flow Rate 2 Fraction of Inspired Oxygen 11/13/23 20:00 11/13/23 20:00 11/13/23 20:40 Temperature 98.2 F Pulse Rate 98 96 Respiratory Rate 16 17 Blood Pressure 108/58 L Pulse Oximetry 95 95 Oxygen Delivery Nasal Cannula Oxygen Flow Rate 2 Fraction of Inspired Oxygen 11/13/23 20:41 11/13/23 21:00 11/13/23 20:54 Temper
[2023-11-15] VITALS (18 sets, daily range): BP systolic 105–139; BP diastolic 59–82; PULSE 72–110; RESP 16–22; TEMP 36.3–36.9; O2SAT 90–97
[2023-11-15] MEDS: LEVALBUTEROL NEB 1.25 MG/3 ML INHALATION ×4 (03:12→20:20)
[2023-11-15] MEDS: IPRATROPIUM BR 0.02% INH SOLN 0.5 MG/2.5 ML VIAL INHALATION ×4 (03:12→20:20)
[2023-11-15 05:05] LABS: Hematocrit 30.4 % (42.0-52.0); Hemoglobin 9.7 g/dL (14.0-18.0); Mean Corpuscular HGB Conc 31.9 g/dl (32-36); Mean Corpuscular Hemoglobin 31.2 pg (26-34); Mean Corpuscular Volume 97.7 fl (80-100); Mean Platelet Volume 10.6 fl (7.4-10.4); Platelet Count Result 270 k/mm3 (150-375); Red Blood Count 3.11 M/mm3 (4.6-6.20); Red Cell Distribution Width 17.3 % (11.5-14.5)
[2023-11-15 05:17] LABS: Alanine Aminotransferase 43 U/L (6-50); Albumin Level 2.4 g/dL (3.5-5.1); Alkaline Phosphatase 218 U/L (38-126); Anion Gap 5 mmol/L (8-16); Aspartate Amino Transferase 92 U/L (17-59); Bilirubin,Total 0.9 mg/dL (0.2-1.3); Blood Urea Nitrogen 20 mg/dL (9-20); Calcium 8.1 mg/dL (8.4-10.2); Carbon Dioxide 26 mmol/L (22-30); Chloride 104 mmol/L (98-107); Estimated CRCL calculation 61 ml/min; Estimated Glomerular Filt Rate > 60; Glucose 110 mg/dL (65-110); Potassium 4.3 mmol/L (3.4-5.0); Sodium 135 mmol/L (137-145)
[2023-11-15] MEDS: LEVOTHYROXINE SODIUM 88 MCG TABLET BY MOUTH (06:06)
[2023-11-15] MEDS: PIPERACILLN/TAZ 3.375GM/NS50ML 3.375 GM/50 ML BAG IVPB ×4 (06:06→23:53)
[2023-11-15] MEDS: CENTRAL LINE FLUSH 10 ML IV PUSH ×3 (06:08→20:17)
[2023-11-15] MEDS: FLUTICASONE/UMECLIDIN/VILANTER 100-62.5-25 MCG ELLIPTA 1 PUFF INHALATION (07:27)
[2023-11-15] MEDS: methylPREDNISolone SOD SUCC 125 MG VIAL 60 MG IV PUSH (08:47)
[2023-11-15] MEDS: MIDODRINE HCL 10 MG TABLET PO ×3 (08:47→16:47)
[2023-11-15] MEDS: PANTOPRAZOLE SODIUM IV 40 MG VIAL IV PUSH ×2 (08:47→20:16)
[2023-11-15] MEDS: FOLIC ACID 1 MG/0.2 ML INJ IV PUSH (08:48)
[2023-11-15] MEDS: THIAMINE HCL 200 MG/2 ML VIAL 100 MG IV PUSH (08:48)
[2023-11-15] MEDS: AZITHROMYCIN 250 MG TABLET PO (08:48)
--- NOTE | 2023-11-15 11:28 | WPDINTPN ---
Progress Note: A&P Assessment and Plan (1) Acute respiratory failure: Code(s): J96.00 - Acute respiratory failure, unspecified whether with hypoxia or hypercapnia Status: Acute Assessment and Plan: Acute respiratory failure which is multifactorial likely secondary to COPD exacerbation and pneumonia could be aspiration, CTA negative for PE Troponins negative Patient placed on BiPAP on admission to ICU. He is DNR DNI He has been now weaned to nasal cannula. Continue BiPAP p.r.n. and at night Continue solu-Medrol and bronchodilators Blood cultures growing E coli, a continue Zosyn and azithromycin Screen for COVID influenza and RSV was negative Chest CTA No CT evidence of acute pulmonary embolus. 1.4 x 0.6 cm endobronchial lesion in the distal left mainstem bronchus, which is a new finding since the chest CT of 06/01/2023. Consider bronchoscopy. Subsegmental right upper lobe and right lower lobe opacities, likely atelectasis or infection, with trace right pleural effusion and right hilar lymphadenopathy. Consider follow-up CT to ensure resolution. Stable medial left upper lobe pulmonary nodule, recommend reassessment at the above recommended follow-up CT Cirrhosis. Small volume ascites Small volume pericholecystic fluid, a nonspecific finding in the setting of chronic liver disease. The previously described bladder mass was not visualized due to an empty urinary bladder. Continue incentive spirometry (2) Upper GI bleed: Code(s): K92.2 - Gastrointestinal hemorrhage, unspecified Status: Acute Assessment and Plan: Patient presented with GI bleed and was found to be having gastric ulcer, varices and gastritis. Colonoscopy showed polyps and diverticulosis Continue IV PPI Hemoglobin has been stable, continue to monitor and will transfuse as needed (3) Alcohol withdrawal: Code(s): F10.939 - Alcohol use, unspecified with withdrawal, unspecified Status: Acute Assessment and Plan: P.r.n. Ativan is ordered but he has not required any and appears to be out of end of alcohol withdrawal Off Ativan Continue thiamine and folic acid (4) Chest pain: Code(s): R07.9 - Chest pain, unspecified Status: Acute Assessment and Plan: Likely pleuritic pain EKG shows no ST elevation Troponins ordered and were negative Continue aspirin CTA negative for PE P.r.n. morphine Lipase mildly elevated (5) Acute blood loss anemia: Code(s): D62 - Acute posthemorrhagic anemia Status: Acute Assessment and Plan: See above (6) Hepatitis C: Code(s): B19.20 - Unspecified viral hepatitis C without hepatic coma Status: Acute Assessment and Plan: See above (7) Cirrhosis: Code(s): K74.60 - Unspecified cirrhosis of liver Status: Acute Assessment and Plan: Secondary to alcohol liver disease and hepatitis C GI following (8) COPD exacerbation: Code(s): J44.1 - Chronic obstructive pulmonary disease with (acute) exacerbation Status: Acute Assessment and Plan: See above (9) Pneumonia: Code(s): J18.9 - Pneumonia, unspecified organism Status: Acute Assessment and Plan: See above (10) Abdominal pain: Code(s): R10.9 - Unspecified abdominal pain Status: Acute Assessment and Plan: KUB was negative for free air. Lipase mildly elevated CT scan of abdomen unremarkable except chronic problems (11) Hypotension: Code(s): I95.9 - Hypotension, unspecified Status: Acute Assessment and Plan: RESOLVED Blood pressure dropped after patient received morphine and Lopressor. IV fluid bolus was given OFF PRESSORS Pressures have been stable (12) Endobronchial mass: Code(s): R91.8 - Other nonspecific abnormal finding of lung field Status: Acute Assessment and Plan: Patient was evaluated by Pulmonary. Plan for bronchoscopy sometime this week once he is clinica
--- NOTE | 2023-11-15 16:20 | PM.IMPN ---
Progress Note: A&P Assessment and Plan (1) Bacteremia: Code(s): R78.81 - Bacteremia Status: Acute (2) Acute and chronic respiratory failure with hypoxia: Code(s): J96.21 - Acute and chronic respiratory failure with hypoxia Status: Acute (3) Sepsis: Code(s): A41.9 - Sepsis, unspecified organism Status: Acute (4) Gastric ulcer: Code(s): K25.9 - Gastric ulcer, unspecified as acute or chronic, without hemorrhage or perforation Status: Acute (5) Upper GI bleed: Code(s): K92.2 - Gastrointestinal hemorrhage, unspecified Status: Acute (6) Hepatitis C: Code(s): B19.20 - Unspecified viral hepatitis C without hepatic coma Status: Acute (7) COPD (chronic obstructive pulmonary disease): Code(s): J44.9 - Chronic obstructive pulmonary disease, unspecified Status: Acute Plan This is a pleasant 78-year-old male with history of alcohol abuse (1/5 of whiskey a day), iron deficiency anemia, gastroesophageal reflux disease, cirrhotic changes of the liver noted on CT with history of reactive hepatitis C screening, chronic obstructive pulmonary disease on oxygen, hypothyroidism, hypertension, and hyperlipidemia who presented to the emergency department via EMS from home for evaluation of dark stools.? (1) Acute respiratory failure: ?Code(s): J96.00 - Acute respiratory failure, unspecified whether with hypoxia or hypercapnia ?Status:?Acute ?Assessment and Plan: Acute respiratory failure which is multifactorial likely secondary to COPD exacerbation and pneumonia could be aspiration, CTA negative for PE Patient placed on BiPAP on admission to ICU.? He is DNR DNI He has been now weaned to nasal cannula.? Continue BiPAP p.r.n. and at night Continue solu-Medrol and bronchodilators Continue incentive spirometry Chest CTA No CT evidence of acute pulmonary embolus. 1.4 x 0.6 cm endobronchial lesion in the distal left mainstem bronchus, which is a new finding since the chest CT of 06/01/2023. Consider bronchoscopy. Subsegmental right upper lobe and right lower lobe opacities, likely atelectasis or infection, with trace right pleural effusion and right hilar lymphadenopathy. Consider follow-up CT to ensure resolution. Stable medial left upper lobe pulmonary nodule, recommend reassessment at the above recommended follow-up CT Cirrhosis. Small volume ascites Small volume pericholecystic fluid, a nonspecific finding in the setting of chronic liver disease. The previously described bladder mass was not visualized due to an empty urinary bladder. (2) Upper GI bleed: ?Code(s): K92.2 - Gastrointestinal hemorrhage, unspecified ?Status:?Acute ?Assessment and Plan: Patient presented with GI bleed and was found to be having gastric ulcer, varices and gastritis.? Colonoscopy showed polyps and diverticulosis Patient is on Protonix 40 mg b.i.d. IV push, continue Protonix IV Hemoglobin stable Transfuse as needed Appreciate GI consultation (3) Alcohol withdrawal: ?Code(s): F10.939 - Alcohol use, unspecified with withdrawal, unspecified ?Status:?Acute ?Assessment and Plan: P.r.n. Ativan is ordered but he has not required any and appears to be out of end of alcohol withdrawal Off Ativan Continue thiamine and folic acid No sign of alcohol withdrawal currently (4) Chest pain: ?Code(s): R07.9 - Chest pain, unspecified ?Status:?Acute ?Assessment and Plan: Likely pleuritic pain EKG shows no ST elevation Troponins ordered and were negative Continue aspirin CTA negative for PE P.r.n. morphine Lipase mildly elevated (5) Acute blood loss anemia: ?Code(s): D62 - Acute posthemorrhagic anemia ?Status:?Acute ?Assessment and Plan: See above (6) Hepatitis C: ?Code(s): B19.20 - Unspecified viral hepatitis C without hepatic coma ?Status:?Acute ?Assessment and Plan: See above (7) Cirrhosis: ?
--- NOTE | 2023-11-15 17:42 | PC.NURSE ---
pt transferred in to room 247 via wheelchair, assisted to bed with no difficulties, oriented pt to new room and reviewed plan of care
--- NOTE | 2023-11-15 17:56 | PC.NURSE ---
This patient, Brennon Multani, was transferred to [facility] on 11/15/23 at 1733. Personal belongings sent with patient. Report given to accepting RN. Appropriate documentation sent with patient.
[2023-11-15] MEDS: ACETAMINOPHEN 325 MG TABLET 650 MG PO ×2 (20:19→23:56)
--- NOTE | 2023-11-15 22:10 | PM.PNPUL ---
Progress Note: A&P Assessment and Plan (1) Endobronchial mass: Code(s): R91.8 - Other nonspecific abnormal finding of lung field Status: Acute Assessment and Plan: He has a left mainstem bronchus lesion which is 1.4 x 0.6 cm seen on a chest CT November 12 2023, was not present on 06/01/2023, concerning for malignancy. He is more stable now compared to admission. He is off levophed, not withdrawing from alcohol. He had coagulopathy with elevated PT PTT, and repeat coags are pending. He had suspected pneumonia probably due to aspiration with infiltrate in the right lung, and a GI bleed. Bronchoscopy appears safer at this time. He has severe COPD. Doing bronchoscopy while he is in the hospital may be safer. We will plan for if this is possible. I talked with the patient and he said if he has lung cancer he does want to know. He has had screening CT scans for several years. He also had a PET scan a few years ago, this showed an abnormal area in the right lung. He had a procedure, either a CT guided biopsy or bronchoscopy at [facility] with a right pneumothorax after the procedure. At the time, said he would never have another biopsy. He is more open to having a possible cancer diagnosed. He also has a suspicious lesion in the superior bladder, seen on cryptoscopy, not biopsied. We may consider a PET scan also after discharge. 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 Shaheed Romero at [facility] at [address] [place] [address] in [facility]. He is on levalbuterol and ipratropium nebulized, lower Solu-Medrol 60 mg IV once a day. He is off azithromycin now. He is requesting a nebulizer for home use, is on Trelegy once a day at home, a triple therapy COPD inhaler, and albuterol p.r.n. which he uses several times a day. (3) Acute and chronic respiratory failure with hypoxia: Code(s): J96.21 - Acute and chronic respiratory failure with hypoxia Status: Acute Assessment and Plan: He says that he has been on oxygen 5 L a minute since 2010 however the office notes that I reviewed from [address] Shahnaz Mueller through [address] Shaheed Romero did not mention O2. He was on O2 5 L/min around the clock before this admission. His arterial blood gas this admission showed a pH of 7.433, pCO2 33.8, PO2 138.4, HCO3 is 22.1 saturation 97.6% on 100% oxygen with elevated A-a gradient 540.8. His oxygenation has improved significantly, he is currently on nasal cannula 2 L a minute with a saturation between 90-94%. He is probably using too much oxygen at home. He does not have any CO2 retention. His oxygenation can be followed. He is on very low-flow oxygen currently so oxygenation is not an acute issue. Plan plan for possible bronch on Nov 17 Subjective Date/time seen: 11/15/23 22:10 Interval history: hospital follow up :?11/15; he is better, moved to Room 247 from ICU. He is feeling better, wants to proceed with the bronchoscopy to see if the mass in the Left mainstem bronchus is lung cancer. He had a negative event wit garcia biopsy on the right lung, had a ptx, but this procedure would be very unlikely to have a pneumothorax. If we wee a mass in the left mainstem, we take biopsies. We will not be near the pleura, will not perform transbronchial bx. He has PT PTT pending. 11/13/2023 consultation: Brennon Multani is a 78-year-old man admitted Dec 14 with incontinence of black tarry stool, GI bleeding, had endoscopy which
[2023-11-16] VITALS (15 sets, daily range): BP systolic 124–129; BP diastolic 67–68; PULSE 76–100; RESP 17–20; TEMP 36.7–36.9; O2SAT 88–100
[2023-11-16] MEDS: LEVALBUTEROL NEB 1.25 MG/3 ML INHALATION ×3 (02:18→20:58)
[2023-11-16] MEDS: IPRATROPIUM BR 0.02% INH SOLN 0.5 MG/2.5 ML VIAL INHALATION ×4 (02:18→20:58)
[2023-11-16] MEDS: PIPERACILLN/TAZ 3.375GM/NS50ML 3.375 GM/50 ML BAG IVPB ×4 (05:03→23:54)
[2023-11-16] MEDS: ACETAMINOPHEN 325 MG TABLET 650 MG PO (05:04)
[2023-11-16] MEDS: LEVOTHYROXINE SODIUM 88 MCG TABLET BY MOUTH (05:04)
[2023-11-16] MEDS: CENTRAL LINE FLUSH 10 ML IV PUSH ×3 (05:05→21:01)
[2023-11-16 05:18] LABS: Basophils Percent Auto 0.2 % (0.2-1.2); Hematocrit 32.2 % (42.0-52.0); Hemoglobin 9.9 g/dL (14.0-18.0); Immature Granulocyte Absolute 0.15 K/mm3 (0.00-0.031); Immature Granulocyte Percent A 1.2 % (0-0.5); Lymphocytes Absolute Auto 0.68 K/mm3 (0.9-3.2); Lymphocytes Percent Auto 5.5 % (18.3-44.2); Mean Corpuscular HGB Conc 30.7 g/dl (32-36); Mean Corpuscular Hemoglobin 30.8 pg (26-34); Mean Corpuscular Volume 100.3 fl (80-100); Mean Platelet Volume 10.7 fl (7.4-10.4); Monocytes Absolute Auto 0.4 K/mm3 (0.1-0.6); Monocytes Percent Auto 3.3 % (2.6-8.5); Neutrophils Percent Auto 89.8 % (45.5-73.1); Platelet Count Result 247 k/mm3 (150-375); Red Blood Count 3.21 M/mm3 (4.6-6.20); Red Cell Distribution Width 17.2 % (11.5-14.5); White Blood Count 12.3 K/mm3 (4.5-10.0)
[2023-11-16 06:12] LABS: Alanine Aminotransferase 59 U/L (6-50); Albumin Level 2.4 g/dL (3.5-5.1); Alkaline Phosphatase 258 U/L (38-126); Anion Gap 1 mmol/L (8-16); Aspartate Amino Transferase 133 U/L (17-59); Bilirubin,Total 0.9 mg/dL (0.2-1.3); Blood Urea Nitrogen 22 mg/dL (9-20); Calcium 8.2 mg/dL (8.4-10.2); Carbon Dioxide 27 mmol/L (22-30); Chloride 109 mmol/L (98-107); Estimated CRCL calculation 56 ml/min; Estimated Glomerular Filt Rate > 60; Glucose 111 mg/dL (65-110); Magnesium 2.1 mg/dL (1.6-2.3); Phosphorus 3.1 mg/dL (2.5-4.5); Potassium 4.2 mmol/L (3.4-5.0); Sodium 137 mmol/L (137-145)
--- NOTE | 2023-11-16 07:35 | PM.IMPN ---
Progress Note: A&P Assessment and Plan (1) Bacteremia: Code(s): R78.81 - Bacteremia Status: Acute (2) Acute and chronic respiratory failure with hypoxia: Code(s): J96.21 - Acute and chronic respiratory failure with hypoxia Status: Acute (3) Sepsis: Code(s): A41.9 - Sepsis, unspecified organism Status: Acute (4) Gastric ulcer: Code(s): K25.9 - Gastric ulcer, unspecified as acute or chronic, without hemorrhage or perforation Status: Acute (5) Upper GI bleed: Code(s): K92.2 - Gastrointestinal hemorrhage, unspecified Status: Acute (6) Hepatitis C: Code(s): B19.20 - Unspecified viral hepatitis C without hepatic coma Status: Acute (7) COPD (chronic obstructive pulmonary disease): Code(s): J44.9 - Chronic obstructive pulmonary disease, unspecified Status: Acute Plan This is a pleasant 78-year-old male with history of alcohol abuse (1/5 of whiskey a day), iron deficiency anemia, gastroesophageal reflux disease, cirrhotic changes of the liver noted on CT with history of reactive hepatitis C screening, chronic obstructive pulmonary disease on oxygen, hypothyroidism, hypertension, and hyperlipidemia who presented to the emergency department via EMS from home for evaluation of dark stools.? (1) Acute respiratory failure, pneumonia, COPD exacerbation ?Code(s): J96.00 - Acute respiratory failure, unspecified whether with hypoxia or hypercapnia ?Status:?Acute ?Assessment and Plan: Acute respiratory failure which is multifactorial likely secondary to COPD exacerbation and pneumonia could be aspiration, CTA negative for PE Patient placed on BiPAP on admission to ICU.? He is DNR DNI He has been now weaned to nasal cannula.? Continue BiPAP p.r.n. and at night received solu-Medrol and bronchodilators Continue incentive spirometry Chest CTA No CT evidence of acute pulmonary embolus. 1.4 x 0.6 cm endobronchial lesion in the distal left mainstem bronchus, which is a new finding since the chest CT of 06/01/2023. Consider bronchoscopy. Subsegmental right upper lobe and right lower lobe opacities, likely atelectasis or infection, with trace right pleural effusion and right hilar lymphadenopathy. Consider follow-up CT to ensure resolution. Stable medial left upper lobe pulmonary nodule, recommend reassessment at the above recommended follow-up CT Cirrhosis. Small volume ascites Small volume pericholecystic fluid, a nonspecific finding in the setting of chronic liver disease. The previously described bladder mass was not visualized due to an empty urinary bladder. For upper trimmer report, patient had bronchoscope all side hospital,?right side nodule with negative pathology however he had a pneumothorax shortly after the procedure. Appreciate upper trimmer, Dr. Pablo's consultation, c/w levalbuterol and ipratropium nebulized, lower Solu-Medrol 60 mg IV once a day. off azithromycin? (2) Upper GI bleed: ?Code(s): K92.2 - Gastrointestinal hemorrhage, unspecified ?Status:?Acute ?Assessment and Plan: Patient presented with GI bleed and was found to be having gastric ulcer, varices and gastritis.? Colonoscopy showed polyps and diverticulosis Patient is on Protonix 40 mg b.i.d. IV push, continue Protonix IV Hemoglobin stable Transfuse as needed Appreciate GI consultation (3) Alcohol withdrawal: ?Code(s): F10.939 - Alcohol use, unspecified with withdrawal, unspecified ?Status:?Acute ?Assessment and Plan: P.r.n. Ativan is ordered but he has not required any and appears to be out of end of alcohol withdrawal Off Ativan Continue thiamine and folic acid No sign of alcohol withdrawal currently (4) Chest pain: ?Code(s): R07.9 - Chest pain, unspecified ?Status:?Acute ?Assessment and Plan: Likely pleuritic pain EKG shows no ST elevation Troponins ordered and were negative Continue aspirin CTA negative for PE P.r.n. morph
[2023-11-16] MEDS: methylPREDNISolone SOD SUCC 125 MG VIAL 60 MG IV PUSH (08:42)
[2023-11-16] MEDS: PANTOPRAZOLE SODIUM IV 40 MG VIAL IV PUSH ×2 (08:43→21:01)
[2023-11-16] MEDS: THIAMINE HCL 200 MG/2 ML VIAL 100 MG IV PUSH (08:43)
[2023-11-16] MEDS: MIDODRINE HCL 10 MG TABLET PO ×3 (08:43→17:43)
--- NOTE | 2023-11-16 08:49 | PC.NURSE ---
call to pharm for missing med folic acid
[2023-11-16] MEDS: FLUTICASONE/UMECLIDIN/VILANTER 100-62.5-25 MCG ELLIPTA 1 PUFF INHALATION (09:49)
[2023-11-16] MEDS: FOLIC ACID 1 MG/0.2 ML INJ IV PUSH (11:01)
--- NOTE | 2023-11-16 15:42 | PC.NURSE ---
damarisesta is non-formulary med at [facility] substituted for sleep
--- NOTE | 2023-11-16 18:29 | PM.PNPUL ---
Progress Note: A&P Assessment and Plan (1) Endobronchial mass: Code(s): R91.8 - Other nonspecific abnormal finding of lung field Status: Acute Assessment and Plan: He has a left mainstem bronchus lesion which is 1.4 x 0.6 cm seen on a chest CT November 12 2023, was not present on 06/01/2023, concerning for malignancy. He is more stable now compared to admission. He is off levophed, not withdrawing from alcohol. He had coagulopathy with elevated PT PTT, and repeat coags are pending. He had suspected pneumonia probably due to aspiration with infiltrate in the right lung, and a GI bleed. Bronchoscopy appears safer at this time. He has severe COPD. Doing bronchoscopy while he is in the hospital may be safer. This is scheduled for 1 pm Nov 17. (2) COPD exacerbation: Code(s): J44.1 - Chronic obstructive pulmonary disease with (acute) exacerbation Status: Acute Assessment and Plan: Better. He will follow up w us in the office, previously saw Dr Klein. End-stage COPD by chest CT; only PFT information June 2015 when his FEV1 was 39% and he had airflow obstruction, in an office note by exhibit preparator Dr. Shaheed Romero at [facility] at [address] [place] [address] in [facility]. He is on levalbuterol and ipratropium nebulized, I changed Solu-Medrol 60 mg IV once a day to prednisone taper starting in the am. . (3) Acute and chronic respiratory failure with hypoxia: Code(s): J96.21 - Acute and chronic respiratory failure with hypoxia Status: Acute Assessment and Plan: He says that he has been on oxygen 5 L a minute since 2010 however the office notes that I reviewed from [address] Shahnaz Mueller through [address] Shaheed Romero did not mention O2. He was on O2 at 5 L/min around the clock before this admission. His arterial blood gas this admission showed a pH of 7.433, pCO2 33.8, PO2 138.4, HCO3 is 22.1 saturation 97.6% on 100% oxygen with elevated A-a gradient 540.8. His oxygenation has improved significantly, he is currently on nasal cannula 4 L a minute with a saturation between 88-94%. He is may be using too much oxygen at home. He does not have any CO2 retention. His oxygenation can be followed. He is on lower O2 than at admission. Plan plan for bronch on Nov 17 at 1:00 pm clear liquid breakfast then NPO start prednisone in am, and stop solumedrol Subjective Date/time seen: 11/16/23 18:29 Interval history: hospital follow up :?11/16: He is stable, agress to have bronchoscopy tomorrow. Discussed hte procedure, risks, benefits. This is going to be at 1:00 pm Nov 17. 11/15; he is better, moved to Room 247 from ICU. He is feeling better, wants to proceed with the bronchoscopy to see if the mass in the Left mainstem bronchus is lung cancer. He had a negative event wit garcia biopsy on the right lung, had a ptx, but this procedure would be very unlikely to have a pneumothorax. If we wee a mass in the left mainstem, we take biopsies. We will not be near the pleura, will not perform transbronchial bx. He has PT PTT pending. 11/13/2023 consultation: Brennon Multani is a 78-year-old man admitted Nov 10 with incontinence of black tarry stool, GI bleeding, had endoscopy which showed gastric ulcer, varices and gastritis.? He is an alcoholic, drinks a 5th of whiskey every day.? A CT scan of the abdomen/pelvis showed a 2.1 cm urinary bladder mass at the superior wall, suspicious for bladder cancer, but this was not biopsied during his colonoscopy on 11/11 due to his coagulopathy.? He was started on azithromycin for suspected pneumonia and bronchodilator for COPD.? A CT scan of the chest 11/12 =?1.4 x 0.6 cm nodule in the distal left mainstem bronchus, not present in the prior chest CT
[2023-11-16] MEDS: ZOLPIDEM TARTRATE (*CRX) 5 MG TABLET PO (23:54)
[2023-11-17] VITALS (20 sets, daily range): BP systolic 88–123; BP diastolic 47–84; PULSE 77–96; RESP 17–20; TEMP 35.7–36.4; O2SAT 96–100
[2023-11-17] MEDS: IPRATROPIUM BR 0.02% INH SOLN 0.5 MG/2.5 ML VIAL INHALATION ×3 (02:41→14:04)
[2023-11-17] MEDS: LEVALBUTEROL NEB 1.25 MG/3 ML INHALATION ×3 (02:42→14:04)
[2023-11-17 05:52] LABS: Hematocrit 26.1 % (42.0-52.0); Hemoglobin 7.7 g/dL (14.0-18.0); Mean Corpuscular HGB Conc 29.5 g/dl (32-36); Mean Corpuscular Hemoglobin 30.4 pg (26-34); Mean Corpuscular Volume 103.2 fl (80-100); Mean Platelet Volume 11.1 fl (7.4-10.4); Platelet Count Result 168 k/mm3 (150-375); Red Blood Count 2.53 M/mm3 (4.6-6.20); Red Cell Distribution Width 17.1 % (11.5-14.5); White Blood Count 7.8 K/mm3 (4.5-10.0)
[2023-11-17] MEDS: PIPERACILLN/TAZ 3.375GM/NS50ML 3.375 GM/50 ML BAG IVPB (05:55)
[2023-11-17] MEDS: LEVOTHYROXINE SODIUM 88 MCG TABLET BY MOUTH (05:55)
[2023-11-17] MEDS: CENTRAL LINE FLUSH 10 ML IV PUSH ×3 (05:56→20:33)
[2023-11-17] MEDS: CENTRAL LINE FLUSH 20 ML IV PUSH (05:56)
[2023-11-17 06:08] LABS: Alanine Aminotransferase 64 U/L (6-50); Albumin Level 1.9 g/dL (3.5-5.1); Alkaline Phosphatase 201 U/L (38-126); Anion Gap 1 mmol/L (8-16); Aspartate Amino Transferase 111 U/L (17-59); Bilirubin,Total 0.8 mg/dL (0.2-1.3); Blood Urea Nitrogen 17 mg/dL (9-20); Calcium 6.9 mg/dL (8.4-10.2); Carbon Dioxide 23 mmol/L (22-30); Chloride 112 mmol/L (98-107); Estimated CRCL calculation 75 ml/min; Estimated Glomerular Filt Rate > 60; Glucose 81 mg/dL (65-110); Magnesium 1.7 mg/dL (1.6-2.3); Potassium 3.2 mmol/L (3.4-5.0); Sodium 136 mmol/L (137-145)
[2023-11-17 07:10] LABS: INR 1.2; Prothrombin Time 15.7 Seconds (11.1-14.7)
[2023-11-17 07:24] LABS: Partial Thromboplastin Time 37.6 SECONDS (22.3-36.8)
[2023-11-17] MEDS: ALTEPLASE 2 MG VIAL (CATHFLO) IV PUSH ×2 (07:45)
[2023-11-17] MEDS: FLUTICASONE/UMECLIDIN/VILANTER 100-62.5-25 MCG ELLIPTA 1 PUFF INHALATION (08:12)
[2023-11-17] MEDS: PANTOPRAZOLE SODIUM IV 40 MG VIAL IV PUSH (08:15)
[2023-11-17] MEDS: THIAMINE HCL 200 MG/2 ML VIAL 100 MG IV PUSH (08:15)
[2023-11-17] MEDS: FOLIC ACID 1 MG/0.2 ML INJ IV PUSH (08:16)
--- NOTE | 2023-11-17 08:18 | PM.IMPN ---
Progress Note: A&P Assessment and Plan (1) Bacteremia: Code(s): R78.81 - Bacteremia Status: Acute (2) Acute and chronic respiratory failure with hypoxia: Code(s): J96.21 - Acute and chronic respiratory failure with hypoxia Status: Acute (3) Sepsis: Code(s): A41.9 - Sepsis, unspecified organism Status: Acute (4) Gastric ulcer: Code(s): K25.9 - Gastric ulcer, unspecified as acute or chronic, without hemorrhage or perforation Status: Acute (5) Upper GI bleed: Code(s): K92.2 - Gastrointestinal hemorrhage, unspecified Status: Acute (6) Hepatitis C: Code(s): B19.20 - Unspecified viral hepatitis C without hepatic coma Status: Acute (7) COPD (chronic obstructive pulmonary disease): Code(s): J44.9 - Chronic obstructive pulmonary disease, unspecified Status: Acute Plan This is a pleasant 78-year-old male with history of alcohol abuse (1/5 of whiskey a day), iron deficiency anemia, gastroesophageal reflux disease, cirrhotic changes of the liver noted on CT with history of reactive hepatitis C screening, chronic obstructive pulmonary disease on oxygen, hypothyroidism, hypertension, and hyperlipidemia who presented to the emergency department via EMS from home for evaluation of dark stools.? (1) Acute respiratory failure, pneumonia, COPD exacerbation, endobronchial lesion ?Code(s): J96.00 - Acute respiratory failure, unspecified whether with hypoxia or hypercapnia ?Status:?Acute ?Assessment and Plan: Acute respiratory failure which is multifactorial likely secondary to COPD exacerbation and pneumonia could be aspiration, CTA negative for PE Patient placed on BiPAP on admission to ICU.? He is DNR DNI He has been now weaned to nasal cannula.? Continue BiPAP p.r.n. and at night received solu-Medrol and bronchodilators Continue incentive spirometry Chest CTA No CT evidence of acute pulmonary embolus. 1.4 x 0.6 cm endobronchial lesion in the distal left mainstem bronchus, which is a new finding since the chest CT of 06/01/2023. Consider bronchoscopy. Subsegmental right upper lobe and right lower lobe opacities, likely atelectasis or infection, with trace right pleural effusion and right hilar lymphadenopathy. Consider follow-up CT to ensure resolution. Stable medial left upper lobe pulmonary nodule, recommend reassessment at the above recommended follow-up CT Cirrhosis. Small volume ascites Small volume pericholecystic fluid, a nonspecific finding in the setting of chronic liver disease. The previously described bladder mass was not visualized due to an empty urinary bladder. Per embroidery designer report, patient had bronchoscope all side hospital,?right side nodule with negative pathology however he had a pneumothorax shortly after the procedure. Appreciate embroidery designer, Dr. Pablo's consultation, c/w levalbuterol and ipratropium nebulized, lower Solu-Medrol 60 mg IV once a day. off azithromycin? Scheduled bronchoscope November 17 (2) Upper GI bleed: ?Code(s): K92.2 - Gastrointestinal hemorrhage, unspecified ?Status:?Acute ?Assessment and Plan: Patient presented with GI bleed and was found to be having gastric ulcer, varices and gastritis.? Colonoscopy showed polyps and diverticulosis Patient is on Protonix 40 mg b.i.d. IV push, continue Protonix IV Hemoglobin stable Transfuse as needed Appreciate GI consultation (3) Alcohol withdrawal: ?Code(s): F10.939 - Alcohol use, unspecified with withdrawal, unspecified ?Status:?Acute ?Assessment and Plan: P.r.n. Ativan is ordered but he has not required any and appears to be out of end of alcohol withdrawal Off Ativan Continue thiamine and folic acid No sign of alcohol withdrawal currently (4) Chest pain: ?Code(s): R07.9 - Chest pain, unspecified ?Status:?Acute ?Assessment and Plan: Likely pleuritic pain EKG shows no ST elevation Troponins ordered and were neg
--- NOTE | 2023-11-17 08:50 | PC.NURSE ---
To GI Lab via wheelchair.
--- NOTE | 2023-11-17 09:44 | WPDANESEPPF ---
Anes - Initial Pre Proc Eval Procedure: Operation Date: 11/11/23 15:30 Proposed Procedures p Esophagogastroduodenoscopy & Colonoscopy - Aaron Jackson MD s Flexible Cystoscopy - Romulo Null MD Operation Date: 11/17/23 10:00 Proposed Procedures p Flexible Bronchoscopy - Dominga Pablo MD Date/Time: 11/17/23 09:44 Surgeon: Deja Hernandez DO Pre Op Diagnosis: Left endobronchial lesion Patient Data Age: 78 Gender: M Height: 1.83 m Weight: 92.6 kg Last Vital Signs Temp 36.4 C L 11/17/23 05:22 Pulse 87 11/17/23 09:00 Resp 19 11/17/23 09:00 BP 111/68 11/17/23 09:00 Pulse Ox 99 11/17/23 09:00 O2 Del Method Nasal Cannula 11/17/23 09:00 O2 Flow Rate 5 11/17/23 09:00 FiO2 40 11/17/23 08:10 Allergies Allergy/AdvReac Type Severity Reaction Status Date / Time No Known Allergies Allergy Verified 11/17/23 09:02 Home Medications Medication Instructions Recorded Confirmed Type eszopiclone 3 mg tablet 3 mg HS 11/10/23 11/11/23 History famotidine 40 mg tablet 40 mg DAILY 11/10/23 11/11/23 History ferrous sulfate 325 mg (65 mg 325 mg EVERY OTHER DAY 11/10/23 11/11/23 History iron) tablet fluticasone fur. 100 mcg-umeclid 1 ea DAILY 11/10/23 11/11/23 History 62.5 mcg-vilant 25 mcg inhalat.powder (Trelegy Ellipta) levothyroxine 88 mcg tablet 88 mcg DAILY 11/10/23 11/11/23 History rosuvastatin 10 mg tablet 10 mg DAILY 11/10/23 11/11/23 History Laboratory Tests 11/17/23 11/17/23 11/17/23 05:44 05:45 06:53 WBC 7.8 K/mm3 (4.5-10.0) RBC 2.53 L M/mm3 (4.6-6.20) Hgb 7.7 L g/dL (14.0-18.0) Hct 26.1 L % (42.0-52.0) MCV 103.2 H fl (80-100) MCH 30.4 pg (26-34) MCHC 29.5 L g/dl (32-36) RDW 17.1 H % (11.5-14.5) Plt Count 168 k/mm3 (150-375) MPV 11.1 H fl (7.4-10.4) PT 15.7 H Seconds (11.1-14.7) INR 1.2 APTT 37.6 H SECONDS (22.3-36.8) Sodium 136 L mmol/L (137-145) Potassium 3.2 L mmol/L (3.4-5.0) Chloride 112 H mmol/L (98-107) Carbon Dioxide 23 mmol/L (22-30) Anion Gap 1 L mmol/L (8-16) BUN 17 mg/dL (9-20) Creatinine 0.80 mg/dL (0.7-1.3) Estim Creat Clear Calc 75 ml/min Estimated GFR > 60 (59 - ) Glucose 81 mg/dL (65-110) Calcium 6.9 L mg/dL (8.4-10.2) Magnesium 1.7 mg/dL (1.6-2.3) Total Bilirubin 0.8 mg/dL (0.2-1.3) AST 111 H U/L (17-59) ALT 64 H U/L (6-50) Alkaline Phosphatase 201 H U/L (38-126) Total Protein 5.0 L g/dL (6.3-8.2) Albumin 1.9 L g/dL (3.5-5.1) Patient hx anesthesia problems: none Family hx anesthesia problems: none Results Review: All pre-operative results and documents have been reviewed as part of the pre-operative evaluation. [facility] Past Medical History Medical History Alcohol abuse Chronic obstructive pulmonary disease 100+ pack-year history. Cirrhosis Cirrhotic changes of the liver noted on CT. Gastric ulcer Hepatitis C Hypothyroidism Iron deficiency anemia Mixed hyperlipidemia Supplemental oxygen dependent Surgical History Surgical History History of colonoscopy with polypectomy History of right inguinal hernia repair Family History Family History Mother Carcinoma of colon Social History Social History Social History: Surrogate medical decision maker: Anisa Woodruff, daughter. Code status: Full code. Smoking packs per day: 2 Smoking cigarettes per day: 40.0 Years smoked: 50 Smoking pack-years: 100.00 Smoking status: For
[2023-11-17] MEDS: LACTATED RINGERS 1,000 ML 150 ML IV CONT (09:50)
--- NOTE | 2023-11-17 10:02 | SUR.PREOP ---
Called and spoke with LILLIANA Abreu regarding Cathflo in PICC line. Following the dwell time, cathflo was able to be removed along with 5ml of blood from the purple line. 10ml NS flush with ease. Cathflo was able to be removed from white line, but with no blood flow. Charted in JAN. LILLIANA Abreu aware.
[2023-11-17] MEDS: LIDOCAINE HCL 2% LOCAL INJ 20 ML VIAL 16 ML INFILTRATE (10:11)
--- NOTE | 2023-11-17 10:40 | PCPTNOTE ---
Attempted to see patient for PT, however patient is out of the room for a procedure and unable to be seen for PT this date.
--- NOTE | 2023-11-17 11:25 | PC.NURSE ---
Return from GI Lab via stretcher.
[2023-11-17] MEDS: predniSONE 10 MG TABLET 40 MG PO (11:35)
[2023-11-17] MEDS: MIDODRINE HCL 10 MG TABLET PO ×2 (12:21→16:36)
[2023-11-17] MEDS: AMOXICILLIN/CLAVULANATE K 875-125 MG TAB 1 TABLET PO ×2 (14:56→20:33)
--- NOTE | 2023-11-17 20:02 | PM.PNPUL ---
Progress Note: A&P Assessment and Plan (1) Endobronchial mass: Code(s): R91.8 - Other nonspecific abnormal finding of lung field Status: Acute Assessment and Plan: No ENDOBRONCHIAL LESION FOUND on bronchoscopy today. CT showed a left mainstem bronchus lesion which is 1.4 x 0.6 cm on Nov 12, must have been secretions. Was not present on 06/01/2023, concerning for malignancy. He had suspected pneumonia probably due to aspiration with infiltrate in the right lung, and a GI bleed. (2) COPD exacerbation: Code(s): J44.1 - Chronic obstructive pulmonary disease with (acute) exacerbation Status: Acute Assessment and Plan: Better. He will follow up w us in the office, previously saw Dr Klein. End-stage COPD by chest CT; only PFT information June 2015 when his FEV1 was 39% and he had airflow obstruction, in an office note by commercial finance analyst Dr. Shaheed Romero at [facility] at [address] [place] [address] in [facility]. He is on levalbuterol and ipratropium nebulized, I changed Solu-Medrol 60 mg IV once a day to prednisone taper starting in the am. . (3) Acute and chronic respiratory failure with hypoxia: Code(s): J96.21 - Acute and chronic respiratory failure with hypoxia Status: Acute Assessment and Plan: He says that he has been on oxygen 5 L a minute since 2010 however the office notes that I reviewed from [address] Shahnaz Mueller through [address] Shaheed Romero did not mention O2. He was on O2 at 5 L/min around the clock before this admission. His arterial blood gas this admission showed a pH of 7.433, pCO2 33.8, PO2 138.4, HCO3 is 22.1 saturation 97.6% on 100% oxygen with elevated A-a gradient 540.8. His oxygenation has improved significantly, he is currently on nasal cannula 4 L a minute with a saturation between 88-94%. He is may be using too much oxygen at home. He does not have any CO2 retention. His oxygenation can be followed. He is on lower O2 than at admission. Plan Continue oral prednisone. Subjective Date/time seen: 11/17/23 20:02 Interval history: hospital follow up :?11/17: bronch was unremarkable, see report; no endobronchial mass, few secretions, no biopsy taken. I saw him in follow up; he eels quite good, ready t ogo home from pulmonary standpoint. He is on Augmentin and off Zosyn, for E Coli UTI with sepsis. He is on room air. 11/16: He is stable, agress to have bronchoscopy tomorrow. Discussed hte procedure, risks, benefits. This is going to be at 1:00 pm Nov 17. 11/15; he is better, moved to Room 247 from ICU. He is feeling better, wants to proceed with the bronchoscopy to see if the mass in the Left mainstem bronchus is lung cancer. He had a negative event wit garcia biopsy on the right lung, had a ptx, but this procedure would be very unlikely to have a pneumothorax. If we wee a mass in the left mainstem, we take biopsies. We will not be near the pleura, will not perform transbronchial bx. He has PT PTT pending. 11/13/2023 consultation: Brennon Multani is a 78-year-old man admitted Nov 10 with incontinence of black tarry stool, GI bleeding, had endoscopy which showed gastric ulcer, varices and gastritis.? He is an alcoholic, drinks a 5th of whiskey every day.? A CT scan of the abdomen/pelvis showed a 2.1 cm urinary bladder mass at the superior wall, suspicious for bladder cancer, but this was not biopsied during his colonoscopy on 11/11 due to his coagulopathy.? He was started on azithromycin for suspected pneumonia and bronchodilator for COPD.? A CT scan of the chest 11/12 =?1.4 x 0.6 cm nodule in the distal left mainstem bronchus, not present in the prior chest CT. The remaining airways are clear. Emphysematous change. Subsegmental dependent consolidation in the right
[2023-11-17] MEDS: ACETAMINOPHEN 325 MG TABLET 650 MG PO (21:01)
[2023-11-17] MEDS: ZOLPIDEM TARTRATE (*CRX) 5 MG TABLET PO (21:01)
--- NOTE | 2023-11-17 23:08 | PCRCNOTE ---
Window of time for administration has passed. See next scheduled administration.
[2023-11-18] VITALS (8 sets, daily range): BP systolic 105–140; BP diastolic 67–69; PULSE 74–86; RESP 18–20; TEMP 35.9–36; O2SAT 96–100
[2023-11-18] MEDS: LEVALBUTEROL NEB 1.25 MG/3 ML INHALATION ×3 (03:08→15:15)
[2023-11-18] MEDS: IPRATROPIUM BR 0.02% INH SOLN 0.5 MG/2.5 ML VIAL INHALATION ×3 (03:10→15:15)
[2023-11-18] MEDS: LEVOTHYROXINE SODIUM 88 MCG TABLET BY MOUTH (06:51)
[2023-11-18] MEDS: AMOXICILLIN/CLAVULANATE K 875-125 MG TAB 1 TABLET PO ×2 (06:51→14:41)
[2023-11-18] MEDS: CENTRAL LINE FLUSH 10 ML IV PUSH (06:53)
[2023-11-18 07:00] LABS: Hematocrit 30.1 % (42.0-52.0); Hemoglobin 9.4 g/dL (14.0-18.0); Mean Corpuscular HGB Conc 31.2 g/dl (32-36); Mean Corpuscular Hemoglobin 30.6 pg (26-34); Mean Platelet Volume 10.6 fl (7.4-10.4); Platelet Count Result 187 k/mm3 (150-375); Red Blood Count 3.07 M/mm3 (4.6-6.20); Red Cell Distribution Width 17.2 % (11.5-14.5); White Blood Count 8.3 K/mm3 (4.5-10.0)
[2023-11-18 07:09] LABS: Alanine Aminotransferase 89 U/L (6-50); Albumin Level 2.3 g/dL (3.5-5.1); Alkaline Phosphatase 218 U/L (38-126); Anion Gap 0 mmol/L (8-16); Aspartate Amino Transferase 130 U/L (17-59); Bilirubin,Total 1.1 mg/dL (0.2-1.3); Blood Urea Nitrogen 20 mg/dL (9-20); Carbon Dioxide 29 mmol/L (22-30); Chloride 106 mmol/L (98-107); Estimated CRCL calculation 75 ml/min; Estimated Glomerular Filt Rate > 60; Glucose 87 mg/dL (65-110); Sodium 135 mmol/L (137-145)
--- NOTE | 2023-11-18 08:15 | PM.IMPN ---
Progress Note: A&P Assessment and Plan (1) Bacteremia: Code(s): R78.81 - Bacteremia Status: Acute (2) Acute and chronic respiratory failure with hypoxia: Code(s): J96.21 - Acute and chronic respiratory failure with hypoxia Status: Acute (3) Sepsis: Code(s): A41.9 - Sepsis, unspecified organism Status: Acute (4) Gastric ulcer: Code(s): K25.9 - Gastric ulcer, unspecified as acute or chronic, without hemorrhage or perforation Status: Acute (5) Upper GI bleed: Code(s): K92.2 - Gastrointestinal hemorrhage, unspecified Status: Acute (6) Hepatitis C: Code(s): B19.20 - Unspecified viral hepatitis C without hepatic coma Status: Acute (7) COPD (chronic obstructive pulmonary disease): Code(s): J44.9 - Chronic obstructive pulmonary disease, unspecified Status: Acute Plan This is a pleasant 78-year-old male with history of alcohol abuse (1/5 of whiskey a day), iron deficiency anemia, gastroesophageal reflux disease, cirrhotic changes of the liver noted on CT with history of reactive hepatitis C screening, chronic obstructive pulmonary disease on oxygen, hypothyroidism, hypertension, and hyperlipidemia who presented to the emergency department via EMS from home for evaluation of dark stools.? (1) Acute respiratory failure, pneumonia, COPD exacerbation, endobronchial lesion ?Code(s): J96.00 - Acute respiratory failure, unspecified whether with hypoxia or hypercapnia ?Status:?Acute ?Assessment and Plan: Acute respiratory failure which is multifactorial likely secondary to COPD exacerbation and pneumonia could be aspiration, CTA negative for PE Patient placed on BiPAP on admission to ICU.? He is DNR DNI He has been now weaned to nasal cannula.? Continue BiPAP p.r.n. and at night received solu-Medrol and bronchodilators Continue incentive spirometry Chest CTA No CT evidence of acute pulmonary embolus. 1.4 x 0.6 cm endobronchial lesion in the distal left mainstem bronchus, which is a new finding since the chest CT of 06/01/2023. Consider bronchoscopy. Subsegmental right upper lobe and right lower lobe opacities, likely atelectasis or infection, with trace right pleural effusion and right hilar lymphadenopathy. Consider follow-up CT to ensure resolution. Stable medial left upper lobe pulmonary nodule, recommend reassessment at the above recommended follow-up CT Cirrhosis. Small volume ascites Small volume pericholecystic fluid, a nonspecific finding in the setting of chronic liver disease. The previously described bladder mass was not visualized due to an empty urinary bladder. Per traffic lieutenant report, patient had bronchoscope all side hospital,?right side nodule with negative pathology however he had a pneumothorax shortly after the procedure. Appreciate traffic lieutenant, Dr. Pablo's consultation, c/w levalbuterol and ipratropium nebulized, switch from Solu-Medrol 60 mg IV once a day to prednisone 40 mg daily p.o.on 11/17. off azithromycin? Scheduled bronchoscope November [address] Pablo, bronch was unremarkable, see report; no endobronchial mass, few secretions, no biopsy taken Received Zosyn from November 12 to , changed to Augmentin p.o. (2) Upper GI bleed: ?Code(s): K92.2 - Gastrointestinal hemorrhage, unspecified ?Status:?Acute ?Assessment and Plan: Patient presented with GI bleed and was found to be having gastric ulcer, varices and gastritis.? Colonoscopy showed polyps and diverticulosis Received Protonix 40 mg b.i.d. IV push, continue Protonix IV Hemoglobin stable Transfuse as needed Appreciate GI consultation Changed to Pepcid 40 mg daily p.o. on 11/18 (3) Alcohol withdrawal: ?Code(s): F10.939 - Alcohol use, unspecified with withdrawal, unspecified ?Status:?Acute ?Assessment and Plan: P.r.n. Ativan is ordered but he has not required any and appears to be out of end of alcohol withdrawal Off Ativan Continue th
[2023-11-18] MEDS: predniSONE 10 MG TABLET 40 MG PO (09:37)
[2023-11-18] MEDS: FAMOTIDINE 20 MG TABLET 40 MG BY MOUTH (09:38)
[2023-11-18] MEDS: MIDODRINE HCL 10 MG TABLET PO ×2 (09:38→14:42)
[2023-11-18] MEDS: THIAMINE HCL 200 MG/2 ML VIAL 100 MG IV PUSH (09:38)
--- NOTE | 2023-11-18 10:26 | WPDANESPN ---
Anes - Prog Note Post-Op Date/Time: 11/18/23 10:26 Cardiovascular status: normal Respiratory status: normal Airway patency: baseline Mental status: baseline Post-Op hydration status: normal Vital Signs: Last Vital Signs Temp 96.8 F L 11/18/23 03:16 Pulse 85 11/18/23 09:04 Resp 18 11/18/23 09:04 BP 105/67 11/18/23 03:16 Pulse Ox 97 11/18/23 08:56 O2 Del Method High Flow Nasal Cannula 11/18/23 08:56 O2 Flow Rate 5 11/18/23 08:56 FiO2 40 11/17/23 20:00 Pain Score (VAS): 0/10 I/O: Intake & Output 11/17/23 11/18/23 11/18/23 23:59 07:59 15:59 Intake Total 830 340 Output Total 750 500 Balance 80 -160 Laboratory Tests 11/18/23 06:48 11/18/23 06:48 11/18/23 06:48 WBC 8.3 RBC 3.07 L Hgb 9.4 L Hct 30.1 L MCV 98.0 D MCH 30.6 MCHC 31.2 L RDW 17.2 H Plt Count 187 MPV 10.6 H Sodium 135 L Potassium 4.0 Chloride 106 Carbon Dioxide 29 Anion Gap 0 L BUN 20 Creatinine 0.80 Estim Creat Clear Calc 75 Estimated GFR > 60 Glucose 87 Calcium 8.0 L Total Bilirubin 1.1 AST 130 H ALT 89 H Alkaline Phosphatase 218 H Total Protein 5.0 L Albumin 2.3 L Microbiology 11/16/23 08:18 Blood Blood Culture - Preliminary 11/16/23 08:00 Blood Blood Culture - Preliminary Post-procedural complaints: none Patient Feedback: Patient satisfied with anesthetic care.
--- NOTE | 2023-11-18 16:11 | PM.DS ---
DS: Admitting Diagnosis Discharge Date 11/18/23 Admitting Diagnosis (1) Bacteremia: ?Code(s): R78.81 - Bacteremia ?Status:?Acute (2) Acute and chronic respiratory failure with hypoxia: ?Code(s): J96.21 - Acute and chronic respiratory failure with hypoxia ?Status:?Acute (3) Sepsis: ?Code(s): A41.9 - Sepsis, unspecified organism ?Status:?Acute (4) Gastric ulcer: ?Code(s): K25.9 - Gastric ulcer, unspecified as acute or chronic, without hemorrhage or perforation ?Status:?Acute (5) Upper GI bleed: ?Code(s): K92.2 - Gastrointestinal hemorrhage, unspecified ?Status:?Acute (6) Hepatitis C: ?Code(s): B19.20 - Unspecified viral hepatitis C without hepatic coma ?Status:?Acute (7) COPD (chronic obstructive pulmonary disease): ?Code(s): J44.9 - Chronic obstructive pulmonary disease, unspecified ?Status:?Acute DS: Discharge Diagnosis Discharge Diagnosis (1) Bacteremia: Code(s): R78.81 - Bacteremia Status: Acute (2) Acute and chronic respiratory failure with hypoxia: Code(s): J96.21 - Acute and chronic respiratory failure with hypoxia Status: Acute (3) Sepsis: Code(s): A41.9 - Sepsis, unspecified organism Status: Acute (4) Gastric ulcer: Code(s): K25.9 - Gastric ulcer, unspecified as acute or chronic, without hemorrhage or perforation Status: Acute (5) Upper GI bleed: Code(s): K92.2 - Gastrointestinal hemorrhage, unspecified Status: Acute (6) Hepatitis C: Code(s): B19.20 - Unspecified viral hepatitis C without hepatic coma Status: Acute (7) COPD (chronic obstructive pulmonary disease): Code(s): J44.9 - Chronic obstructive pulmonary disease, unspecified Status: Acute Plan This is a pleasant 78-year-old male with history of alcohol abuse (1/5 of whiskey a day), iron deficiency anemia, gastroesophageal reflux disease, cirrhotic changes of the liver noted on CT with history of reactive hepatitis C screening, chronic obstructive pulmonary disease on oxygen, hypothyroidism, hypertension, and hyperlipidemia who presented to the emergency department via EMS from home for evaluation of dark stools.? (1) Acute respiratory failure, pneumonia, COPD exacerbation, endobronchial lesion ?Code(s): J96.00 - Acute respiratory failure, unspecified whether with hypoxia or hypercapnia ?Status:?Acute ?Assessment and Plan: Acute respiratory failure which is multifactorial likely secondary to COPD exacerbation and pneumonia could be aspiration, CTA negative for PE Patient placed on BiPAP on admission to ICU.? He is DNR DNI He has been now weaned to nasal cannula.? Continue BiPAP p.r.n. and at night DS: Summary Hospital Course Hospital Course: received solu-Medrol and bronchodilators Continue incentive spirometry Chest CTA No CT evidence of acute pulmonary embolus. 1.4 x 0.6 cm endobronchial lesion in the distal left mainstem bronchus, which is a new finding since the chest CT of 06/01/2023. Consider bronchoscopy. Subsegmental right upper lobe and right lower lobe opacities, likely atelectasis or infection, with trace right pleural effusion and right hilar lymphadenopathy. Consider follow-up CT to ensure resolution. Stable medial left upper lobe pulmonary nodule, recommend reassessment at the above recommended follow-up CT Cirrhosis. Small volume ascites Small volume pericholecystic fluid, a nonspecific finding in the setting of chronic liver disease. The previously described bladder mass was not visualized due to an empty urinary bladder. Per manufacturing project engineer report, patient had bronchoscope all side hospital,?right side nodule with negative pathology however he had a pneumothorax shortly after the procedure. Appreciate manufacturing project engineer, Dr. Pablo's consultation, c/w levalbuterol and ipratropium nebulized, switch from Solu-Medrol 60 mg IV once a day to prednisone 40 mg daily p.o.on
== END 2023-11-18 17:20 | disposition home or self-care (01) | DRG 871 ==
LOC: ANHED 08:44 → ANH2MED 13:31 → ANHICU 11-12 10:38 → ANH2MED 11-15 17:36
PROVIDERS: Internal Medicine; Internal Medicine Critical Care Medicine; Internal Medicine Gastroenterology; Physician Assistant; Urology; Admitting Provider Student in an Organized Health Care Education/Training Program; Emergency Provider Emergency Medicine; PCP Family Medicine; Visit Provider Hospitalist
PROC: 0DJ08ZZ Inspection of Upper Intestinal Tract, Via Natural or Artificial Opening Endoscopic (ICD-10-PCS; CPT 43235; principal; 2023-11-11 15:30)
PROC: 0TJB8ZZ Inspection of Bladder, Via Natural or Artificial Opening Endoscopic (ICD-10-PCS; CPT 52000; 2023-11-11 15:30)
PROC: 0BJ08ZZ Inspection of Tracheobronchial Tree, Via Natural or Artificial Opening Endoscopic (ICD-10-PCS; CPT 31622; principal; 2023-11-17 10:00)
DX: A41.9 Sepsis, unspecified organism (principal); J18.9 Pneumonia, unspecified organism; J69.0 Pneumonitis due to inhalation of food and vomit; J96.21 Acute and chronic respiratory failure with hypoxia; R65.21 Severe sepsis with septic shock; K92.1 Melena; D62 Acute posthemorrhagic anemia; I85.00 Esophageal varices without bleeding; J44.1 Chronic obstructive pulmonary disease with (acute) exacerbation; J44.0 Chronic obstructive pulmonary disease with (acute) lower respiratory infection; K70.31 Alcoholic cirrhosis of liver with ascites; K29.70 Gastritis, unspecified, without bleeding; K25.9 Gastric ulcer, unspecified as acute or chronic, without hemorrhage or perforation; K57.30 Diverticulosis of large intestine without perforation or abscess without bleeding; K63.5 Polyp of colon; N32.89 Other specified disorders of bladder; Z20.822 Contact with and (suspected) exposure to COVID-19; F17.290 Nicotine dependence, other tobacco product, uncomplicated; E03.9 Hypothyroidism, unspecified; E78.2 Mixed hyperlipidemia; I10 Essential (primary) hypertension; K21.9 Gastro-esophageal reflux disease without esophagitis; F41.9 Anxiety disorder, unspecified; F10.10 Alcohol abuse, uncomplicated; E87.6 Hypokalemia; R93.89 Abnormal findings on diagnostic imaging of other specified body structures; D50.9 Iron deficiency anemia, unspecified; B19.20 Unspecified viral hepatitis C without hepatic coma; Z99.81 Dependence on supplemental oxygen; Z86.711 Personal history of pulmonary embolism
CPT/HCPCS: 36415; 36569; 36600; 71045; 71275; 74019; 74177; 80053; 82805; 83605; 83690; 83735; 83880; 84100; 84132; 84484; 85014; 85018; 85025; 85027; 85610; 85730; 86850; 86900; 86901; 87040; 87077; 87186; 87522; 87637; 87902; 88305; 93005; 94002; 94003; 94640; 96361; 96365; 96366; 96375; 97161; 97166; 97530; 97535; 99285; A9270; C8929; C9113; G0378; J0153; J2001; J2270; J2371; J2405; J2543; J2704; J2930; J2997; J3010; J3411; J3480; J7030; J7040; J7120; J7512; Q9957; Q9967

== ENCOUNTER 2023-11-29 10:44 | Outpatient (CLI) | payer MEDICARE, SELFPAY ==
[2023-11-29 11:15] LABS: Basophils Absolute Auto 0.1 K/mm3 (0.0-0.1); Basophils Percent Auto 0.9 % (0.2-1.2); Eosinophils Absolute Auto 0.4 K/mm3 (0-0.3); Eosinophils Percent Auto 3.9 % (0-4.4); Hematocrit 37.2 % (42.0-52.0); Hemoglobin 11.9 g/dL (14.0-18.0); Immature Granulocyte Absolute 0.02 K/mm3 (0.00-0.031); Immature Granulocyte Percent A 0.2 % (0-0.5); Lymphocytes Absolute Auto 1.04 K/mm3 (0.9-3.2); Lymphocytes Percent Auto 10.8 % (18.3-44.2); Mean Corpuscular Hemoglobin 31.7 pg (26-34); Mean Corpuscular Volume 99.2 fl (80-100); Mean Platelet Volume 11.6 fl (7.4-10.4); Monocytes Absolute Auto 0.8 K/mm3 (0.1-0.6); Monocytes Percent Auto 8.6 % (2.6-8.5); Neutrophils Absolute Auto 7.3 K/mm3 (1.3-6.7); Neutrophils Percent Auto 75.6 % (45.5-73.1); Platelet Count Result 151 k/mm3 (150-375); Red Blood Count 3.75 M/mm3 (4.6-6.20); Red Cell Distribution Width 17.8 % (11.5-14.5); White Blood Count 9.6 K/mm3 (4.5-10.0)
[2023-11-29 11:26] LABS: Alanine Aminotransferase 52 U/L (6-50); Alkaline Phosphatase 295 U/L (38-126); Anion Gap 6 mmol/L (8-16); Aspartate Amino Transferase 87 U/L (17-59); Bilirubin,Total 1.8 mg/dL (0.2-1.3); Blood Urea Nitrogen 8 mg/dL (9-20); Calcium 8.4 mg/dL (8.4-10.2); Carbon Dioxide 28 mmol/L (22-30); Chloride 104 mmol/L (98-107); Estimated Glomerular Filt Rate > 60; Glucose 104 mg/dL (65-110); Potassium 3.9 mmol/L (3.4-5.0); Sodium 138 mmol/L (137-145)
[2023-11-29 11:34] LABS: NT Pro B Type Natriuretic Pept 128 pg/mL (19.9-100)
[2023-11-29 11:41] LABS: Iron 70 ug/dL (49-181)
[2023-11-29 11:50] LABS: Percent Iron Saturation 21 % (20-50)
== END 2023-11-29 10:45 | disposition home or self-care (01) ==
LOC: ANHLAB 10:47
PROVIDERS: PCP Family Medicine; Visit Provider Physician Assistant
DX: D64.9 Anemia, unspecified (principal); I50.9 Heart failure, unspecified; K92.2 Gastrointestinal hemorrhage, unspecified; R74.01 Elevation of levels of liver transaminase levels; R91.8 Other nonspecific abnormal finding of lung field; D50.9 Iron deficiency anemia, unspecified; E03.9 Hypothyroidism, unspecified
CPT/HCPCS: 36415; 80053; 82728; 83540; 83550; 83880; 84443; 85025

== ENCOUNTER 2023-12-08 01:58 | Day surgery (SDC) | payer MEDICARE, SELFPAY ==
[2023-12-05 14:16] VITALS: BMI 24.7
--- NOTE | 2023-12-05 14:25 | PC.NURSE ---
Report to the Outpatient Waiting Room, entrance under the green pavilion located off [facility], at time 0600 on date 12/08/23. Planned Procedure Time: 0730. Time changes happen often and if your time is changed the preop area will call you the afternoon before. - You and your visitor will be asked to self-screen and do not enter if you have any COVID symptoms. - A mask is optional within the hospital at this time. Patients may have clear liquids (water, carbonated beverages, clear teas, apple juice) until 3 hours prior to surgery with a maximum of 20 ounces. - No food from midnight until time of surgery Take the following medications with a SIP of water the morning of surgery: INHALERS, LEVOTHYROXINE DO NOT STOP ANY OF YOUR OTHER PRESCRIPTION MEDICATIONS PRIOR TO SURGERY ?EXCEPT THE FOLLOWING Medications to discontinue per physician: N/A Date to take last dose: N/A Please no make-up, nail liberian, hairspray, perfume, deodorant, or body powder the day of surgery. No jewelry (including any body piercings) or valuables the day of surgery, leave them at home. Please take a shower or bath the night before, or the morning of, surgery with an antibacterial soap. Wear comfortable, loose fitting clothing. - Jewelry must be removed prior to entering the operating room. Rings and piercings that are not removed may be cut off. - The hospital will not accept responsibility for valuables. - Please leave all valuables, including medications, at home the day of surgery. If you are going home after surgery, a licensed pile driver engineer must drive you home. - NO public transportation without another adult if you receive anesthesia. - We recommend that an adult stay with you for 24 hours following discharge. - We also recommend that you do not drive, make important decision, drink alcoholic beverages, or take any drugs that were not prescribed by your health care provider for at least 24 hours after your discharge time. Follow any additional instructions given to you from your surgeon. If you or anyone in your household have experienced Covid symptoms in the past week, please notify your surgeon or the nurse liaison at the phone number below for possible testing. Telephone instructions given to FELISA GALDAMEZ and asked if any additional questions and then verbalized understanding. Patient advised to call surgeon office or pre surgery nurse liaison [phone] if any additional questions.
--- NOTE | 2023-12-07 07:12 | PM.HPGS ---
History of Present Illness History of Present Illness Consent: Risks, benefits, and alternatives have been discussed and questions answered. Patient agrees to proceed with procedure. Chief complaint: bladder tumor Narrative: Brennon Multani is a 78 year old male became familiar to our practice during a recent admission for a GI bleed. During the course of evaluation a CT abd/pelvis w/ contrast showed normal upper urinary tracts but a possible intraluminal lesion in his bladder. Indeed, cystoscopy, showed a 2.5 cm papillary neoplasm in the bladder dome. The remainder of the bladder was endoscopically normal. After discussion of options she now presents for TURBT with gemcitabine installation. He is aware of the risks including, but not limited to, adverse cardiopulmonary events, recurrent neoplasm, need for additional procedures and bladder injury. Review of Systems Review of Systems: All systems reviewed & are unremarkable except as noted in HPI and below PMFSH Past Medical History Medical History Alcohol abuse Chronic obstructive pulmonary disease 100+ pack-year history. Cirrhosis Cirrhotic changes of the liver noted on CT. Gastric ulcer Hepatitis C Hypothyroidism Iron deficiency anemia Mixed hyperlipidemia Supplemental oxygen dependent Surgical History Surgical History History of colonoscopy with polypectomy History of right inguinal hernia repair Family History Family History Mother Carcinoma of colon Social History Social History Social History: Surrogate medical decision maker: Anisa Woodruff, daughter. Code status: Full code. Smoking packs per day: 1.5 Smoking cigarettes per day: 30.0 Years smoked: 50 Smoking pack-years: 75.00 Smoking status: Former smoker Tobacco type: cigarettes Second hand tobacco smoke exposure: No Smoking end date: 11/28/11 Additional smoking assessment comments: Pt is still vaping. Alcohol intake: never Drinks per week: 3 Alcohol use details: A 5th of whiskey a day. Substance use: never Substance use type: does not use Do You Feel Safe in your Home?: Yes Lack of Transportation: No Lack of Food: Never True Current Housing: I Have Housing Concerned About Future Housing: No Difficulty Paying Gas/Electric Bills: No Difficulty Paying for Meds: No Currently Unemployed: No Education: High School Diploma/GED Difficulty w/ Childcare or Family Care: No Living arrangements: alone Additional living arrangements comments: . Lives alone in [place]. Occupation/Education: retired Additional occupation/education comments: Retired from [employer]. Spiritual care concerns: No Meds Home Medications and Allergies Home Medications Medication Instructions Recorded Confirmed Type famotidine 40 mg tablet 40 mg PO DAILY 11/10/23 12/05/23 History fluticasone fur. 100 mcg-umeclid 1 ea inhalation DAILY 11/10/23 12/05/23 History 62.5 mcg-vilant 25 mcg inhalat.powder (Trelegy Ellipta) levothyroxine 88 mcg tablet 88 mcg PO DAILY 11/10/23 12/05/23 History rosuvastatin 10 mg tablet 10 mg PO DAILY 11/10/23 12/05/23 History albuterol sulfate 2.5 mg/3 mL 2.5 mg (3 mL) inhalation Q6HRT PRN 11/18/23 12/05/23 Rx (0.083 %) solution for nebulization Shortness Of Breath Or Wheezing #60 mL ipratropium bromide 0.02 % 0.5 mg (2.5 mL) inhalation Q6HRT 11/18/23 12/05/23 Rx solution for inhalation #60 mL midodrine 10 mg tablet 10 mg PO TID #90 tabs 11/18/23 12/05/23 Rx eszopiclone 3 mg tablet (Lunesta) 3 mg PO .qhs insomnia #30 tabs 11/29/23 12/05/23 Rx furosemide 20 mg tablet (Lasix) 20 mg PO BID #60 tabs 12/05/23 12/05/23 Rx Allergies Allergy/AdvReac Type Severity Reaction Status Date /
[2023-12-08] VITALS (11 sets, daily range): BP systolic 110–120; BP diastolic 47–73; PULSE 90–109; RESP 12–20; TEMP 36.4; O2SAT 5–100
--- NOTE | 2023-12-08 06:23 | WPDHPUPDATE1 ---
History and Physical Update Update Date/Time: 12/08/23 06:23 History and Physical has been reviewed, including an updated exam of the patient. There are NO changes in the patient's condition. Risks, benefits, and alternatives have been discussed and questions answered. Patient agrees to proceed with procedure.
[2023-12-08] MEDS: LACTATED RINGERS 1,000 ML 30 ML IV CONT ×2 (06:40→08:18)
--- NOTE | 2023-12-08 07:08 | WPDANESEPPF ---
Anes - Initial Pre Proc Eval Procedure: Operation Date: 12/08/23 07:30 Proposed Procedures p Trans Urethral Resection Bladder Tumor with Gemcitabine Instillation - Romulo Null MD Date/Time: 12/08/23 07:08 Surgeon: Romulo Null MD Pre Op Diagnosis: bladder tumor Patient Data Age: 78 Gender: M Height: 1.83 m Weight: 81.2 kg Last Vital Signs Temp 36.4 C 12/08/23 06:49 Pulse 109 H 12/08/23 06:49 Resp 16 12/08/23 06:49 BP 113/59 L 12/08/23 06:49 Pulse Ox 94 12/08/23 06:49 O2 Del Method Nasal Cannula 12/08/23 06:49 O2 Flow Rate 5 12/08/23 06:49 Allergies Allergy/AdvReac Type Severity Reaction Status Date / Time No Known Allergies Allergy Verified 12/08/23 06:22 Home Medications Medication Instructions Recorded Confirmed Type famotidine 40 mg tablet 40 mg PO DAILY 11/10/23 12/05/23 History fluticasone fur. 100 mcg-umeclid 1 ea inhalation DAILY 11/10/23 12/08/23 History 62.5 mcg-vilant 25 mcg inhalat.powder (Trelegy Ellipta) levothyroxine 88 mcg tablet 88 mcg PO DAILY 11/10/23 12/08/23 History rosuvastatin 10 mg tablet 10 mg PO DAILY 11/10/23 12/08/23 History albuterol sulfate 2.5 mg/3 mL 2.5 mg (3 mL) inhalation Q6HRT PRN 11/18/23 12/08/23 Rx (0.083 %) solution for nebulization Shortness Of Breath Or Wheezing #60 mL ipratropium bromide 0.02 % 0.5 mg (2.5 mL) inhalation Q6HRT 11/18/23 12/08/23 Rx solution for inhalation #60 mL midodrine 10 mg tablet 10 mg PO TID #90 tabs 11/18/23 12/05/23 Rx eszopiclone 3 mg tablet (Lunesta) 3 mg PO .qhs insomnia #30 tabs 11/29/23 12/05/23 Rx furosemide 20 mg tablet (Lasix) 20 mg PO BID #60 tabs 12/05/23 12/08/23 Rx Laboratory Tests 12/08/23 06:30 PT Pending INR Pending APTT Pending Patient hx anesthesia problems: none Family hx anesthesia problems: none Results Review: All pre-operative results and documents have been reviewed as part of the pre-operative evaluation. [facility] Past Medical History Medical History Alcohol abuse Chronic obstructive pulmonary disease 100+ pack-year history. Cirrhosis Cirrhotic changes of the liver noted on CT. Gastric ulcer Hepatitis C Hypothyroidism Iron deficiency anemia Mixed hyperlipidemia Supplemental oxygen dependent Surgical History Surgical History History of colonoscopy with polypectomy History of right inguinal hernia repair Family History Family History Mother Carcinoma of colon Social History Social History Social History: Surrogate medical decision maker: Anisa Woodruff, daughter. Code status: Full code. Smoking packs per day: 1.5 Smoking cigarettes per day: 30.0 Years smoked: 50 Smoking pack-years: 75.00 Smoking status: Former smoker Tobacco type: cigarettes Second hand tobacco smoke exposure: No Smoking end date: 11/28/11 Additional smoking assessment comments: Pt is still vaping. Alcohol intake: never Drinks per week: 3 Alcohol use details: A 5th of whiskey a day. Substance use: never Substance use type: does not use Do You Feel Safe in your Home?: Yes Lack of Transportation: No Lack of Food: Never True Current Housing: I Have Housing Concerned About Future Housing: No Difficulty Paying Gas/Electric Bills: No Difficulty Paying for Meds: No Currently Unemployed: No Education: High School Diploma/GED Difficulty w/ Childcare or Family Care: No Living arrangements: alone Additional living arrangements comments: . Lives alone in [place]. Occupation/Education: retired Additional occupation/education comments: Retired from [employer]. Spiritual care concerns: No Anes - Eval Final PreProcedure Day of Procedure
[2023-12-08 07:17] LABS: INR 1.1; Prothrombin Time 14.7 Seconds (11.1-14.7)
[2023-12-08 07:18] LABS: Partial Thromboplastin Time 36.4 SECONDS (22.3-36.8)
[2023-12-08] MEDS: ceFAZolin 2 GM/D5W 50 ML 2 GM/50 ML BAG IVPB (07:25)
[2023-12-08] MEDS: LIDOCAINE HCL 2% GEL UROJET 10 ML PKG MUCOUS MEM (07:35)
--- NOTE | 2023-12-08 07:51 | W.PM.PROC2 ---
Procedure Note - Detailed Date of Procedure 12/08/23 Pre-op Diagnosis Bladder tumor Post-op Diagnosis Same Procedure Performed TURBT ( small ) Surgeon Romulo Null MD Anesthesia General Description of Procedure The patient was brought to the operative suite where he is prepped and draped in a routine sterile fashion while in the dorsal lithotomy position. This is done after the uneventful administration of systemic sedation. 2% Xylocaine jelly is introduced intraurethrally and allowed to stand for an appropriate period of time. A 24F resectoscope sheath was placed in the bladder and the bladder is circumferentially inspected carefully. 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 This area is resected in its entirety with an attempt made to include detrusor muscle for pathological evaluation of invasion. The base and periphery of this resected side is cauterized with a loop electrode. The bladder is emptied and the resectoscope was removed. The patient is taken to the recovery room having tolerated this procedure well. Drains Yes Packing No Pathology Yes Complications No immediate complications Disposition PACU
--- NOTE | 2023-12-08 07:53 | W.PM.PROC2 ---
Procedure Note - Detailed Date of Procedure 12/08/23 Pre-op Diagnosis Bladder tumor Post-op Diagnosis Same Procedure Performed Gemcitabine installation Surgeon Romulo Null MD Anesthesia General Description of Procedure With the patient in the supine position, a 16F Singletary catheter is placed using sterile technique. Using a protective facemask, gown and double layer of gloves Gemcitabine 2gm in 100cc saline is administered through the catheter/into the bladder. The catheter is then plugged. Patient was instructed to lie supine x20min, then to roll both the left and right x20 min. each. Total dwell time will be 60 min., after which the bladder will be drained and catheter removed. Drains No Pathology None sent
[2023-12-08] MEDS: SODIUM CHLORIDE 0.9% IV 23.7 ML, GEMCITABINE HCL 1,000 MG BLADDER ×2 (08:04)
[2023-12-08] MEDS: fentaNYL CITRATE INJ (*CRX) 100 MCG/2 ML VIAL 25 MCG IV PUSH ×4 (08:16→08:31)
[2023-12-08] MEDS: SODIUM CHLORIDE 0.9% IV 50 ML BAG 150 ML IRRIGATION (09:00)
[2023-12-08] MEDS: oxyCODONE HCL (*CRX) 5 MG TAB IR PO (09:31)
== END 2023-12-08 10:45 | disposition home or self-care (01) ==
PROVIDERS: PCP Family Medicine; Visit Provider Urology
PROC: 0TBB8ZZ Excision of Bladder, Via Natural or Artificial Opening Endoscopic (ICD-10-PCS; CPT 52234; principal; 2023-12-08 07:30)
DX: N30.80 Other cystitis without hematuria (principal); J44.9 Chronic obstructive pulmonary disease, unspecified; E03.9 Hypothyroidism, unspecified; E78.2 Mixed hyperlipidemia; K74.60 Unspecified cirrhosis of liver; Z99.81 Dependence on supplemental oxygen; Z86.19 Personal history of other infectious and parasitic diseases; F17.290 Nicotine dependence, other tobacco product, uncomplicated; F10.90 Alcohol use, unspecified, uncomplicated; Z79.51 Long term (current) use of inhaled steroids
CPT/HCPCS: 52234; 36415; 51720; 85610; 85730; 88305; 88342; A9270; J0690; J1100; J2371; J2405; J2704; J3010; J7120; J9201

== ENCOUNTER 2024-01-24 09:50 | Outpatient (CLI) | payer MEDICARE, SELFPAY ==
[2024-01-24 10:17] LABS: Hemoglobin 10.9 g/dL (14.0-18.0); Mean Corpuscular HGB Conc 30.3 g/dl (32-36); Mean Corpuscular Hemoglobin 29.1 pg (26-34); Mean Corpuscular Volume 96.3 fl (80-100); Mean Platelet Volume 11.2 fl (7.4-10.4); Platelet Count Result 182 k/mm3 (150-375); Red Blood Count 3.74 M/mm3 (4.6-6.20); Red Cell Distribution Width 14.6 % (11.5-14.5); White Blood Count 6.7 K/mm3 (4.5-10.0)
[2024-01-24 10:29] LABS: Iron 39 ug/dL (49-181)
[2024-01-24 10:39] LABS: Percent Iron Saturation 9 % (20-50)
== END 2024-01-24 09:51 | disposition home or self-care (01) ==
LOC: ANHLAB 09:51
PROVIDERS: PCP Family Medicine; Visit Provider Family Medicine
DX: D50.9 Iron deficiency anemia, unspecified (principal); E03.9 Hypothyroidism, unspecified
CPT/HCPCS: 36415; 83540; 83550; 84443; 85027

== ENCOUNTER 2024-07-06 09:11 | Outpatient (CLI) | payer MEDICARE, SELFPAY ==
[2024-07-06 09:50] LABS: Hematocrit 46.4 % (42.0-52.0); Hemoglobin 15.7 g/dL (14.0-18.0); Mean Corpuscular HGB Conc 33.8 g/dl (32-36); Mean Corpuscular Hemoglobin 34.3 pg (26-34); Mean Corpuscular Volume 101.3 fl (80-100); Mean Platelet Volume 10.8 fl (7.4-10.4); Platelet Count Result 187 k/mm3 (150-375); Red Blood Count 4.58 M/mm3 (4.6-6.20); Red Cell Distribution Width 14.5 % (11.5-14.5)
[2024-07-06 10:18] LABS: Alanine Aminotransferase 24 U/L (6-50); Alkaline Phosphatase 126 U/L (38-126); Anion Gap 8 mmol/L (4-12); Aspartate Amino Transferase 42 U/L (17-59); Bilirubin,Total 1.8 mg/dL (0.2-1.3); Blood Urea Nitrogen 13 mg/dL (9-20); Calcium 9.2 mg/dL (8.4-10.2); Carbon Dioxide 29 mmol/L (22-30); Chloride 103 mmol/L (98-107); Cholesterol 178 mg/dL (0-200); Estimated Glomerular Filt Rate > 60; Glucose 85 mg/dL (65-110); HDL Direct 67 mg/dL; Potassium 4.1 mmol/L (3.4-5.0); Sodium 140 mmol/L (137-145); Triglycerides 78 mg/dL (<150)
[2024-07-06 10:29] LABS: LDL Cholesterol Direct 91 mg/dL
[2024-07-06 10:34] LABS: Add Urine Microscopic? YES; Appearance Urine Cloudy (Clear); Bacteria Urine 4+ /hpf; Bilirubin Urine Negative (Negative); Blood Urine Negative (Negative); Color Urine Yellow (Yellow); Glucose Urine UA Negative (Negative); Ketones Urine Trace mg/dL (Negative); Leukocyte Esterase Ur 2+ LEU/UL (Negative); Nitrate Urine Positive (Negative); Non Pathogenic Casts 0-2; Protein Urine Negative (Negative); RBC Urine 0-2 /hpf (0-2); Squamous Epithelial Cell Urine None Seen /hpf (Few); WBC Urine >100 /hpf (0-3); pH Urine 5.5 (5.0-9.0)
[2024-07-06 20:21] LABS: Hemoglobin A1C 4.8 % (<5.7)
[2024-07-06 22:04] LABS: Iron 139 ug/dL (49-181)
[2024-07-06 22:39] LABS: Percent Iron Saturation 42 % (20-50)
== END 2024-07-06 09:12 | disposition home or self-care (01) ==
PROVIDERS: PCP Family Medicine; Visit Provider Family Medicine
DX: E78.5 Hyperlipidemia, unspecified (principal); D50.9 Iron deficiency anemia, unspecified; E03.9 Hypothyroidism, unspecified; R73.01 Impaired fasting glucose; R91.8 Other nonspecific abnormal finding of lung field; R74.01 Elevation of levels of liver transaminase levels; R93.89 Abnormal findings on diagnostic imaging of other specified body structures
CPT/HCPCS: 36415; 80053; 80061; 81001; 82728; 83036; 83540; 83550; 84443; 85027

== ENCOUNTER 2024-11-26 13:52 | Outpatient (CLI) | payer MEDICARE, SELFPAY ==
--- NOTE | ~2024-11-26 | CT_ITS ---
CT Scan of the Chest without Contrast: Clinical Indication: Pulmonary nodule Technique: Contiguous sections were acquired throughout the chest without intravenous contrast. Dose reduction technique was used on this scan by utilizing automated exposure control and iterative recon struction technique. The dose-length product (DLP) was 123.70 mGy-cm. COMPARISON: 11/12/2023 Findings: There is no evidence of any significant mediastinal, hilar or axillary lymphadenopathy. Calcified rig ht paratracheal lymph nodes are present. There are atherosclerotic calcifications of the coronary art eries. There is no evidence of pleural or pericardial effusion. There is advanced emphysema. There are probable minimal tree-in-bud type opacities in the right lung. More confluent areas of consolidation/nodularity similar to prior exam are otherwise resolved. There is minimal scarring peripherally in the left lower lobe. Images through the upper abdomen reveal nodular contour of liver. Impression: Advanced emphysema with probable minimal tree-in-bud opacities in the right lung. More confluent areas of consolidation/nodularity in the right lung seen on prior exam are resolved ot herwise. Reviewed, dictated and finalized at location M. RDS SPECIALIST Impression: Advanced emphysema with probable minimal tree-in-bud opacities in the right damaris g. More confluent areas of consolidation/nodularity in the right lung seen on prio r exam are resolved otherwise.
== END 2024-11-26 13:53 | disposition home or self-care (01) ==
PROVIDERS: PCP Family Medicine; Visit Provider Internal Medicine Pulmonary Disease
DX: R91.1 Solitary pulmonary nodule (principal); J43.9 Emphysema, unspecified
CPT/HCPCS: 71250

== ENCOUNTER 2025-02-19 11:35 | Outpatient (CLI) | payer MEDICARE, SELFPAY ==
[2025-02-19 12:49] LABS: Thyroid Stimulating Hormone 0.841 uIU/mL (0.465-4.680)
--- OUTSIDE RECORDS SUMMARY | 2025-02-19 13:53 | XMS_ITS | Clinical Summary ---
Author Organization [facility] [employer] Address [address] [place] [address] Care Team Providers Care Door Captain Name Role Phone Guicho Edgar MD Primary Care Provider [phone] Source Comments [facility] [employer] [facility],non-owned Affiliates and Associated Physician Practices is amultiple site organization consisting of ambulatory clinics and hospital sitesin [place], [place], [place] and [place]. This disclosure is being madepursuant to the Care Everywhere program and may not contain all information available regarding this patient. Last updated 18.[facility] [employer] Allergies No known active allergies Medications * Be aware that medications may not be up to date on this document. Alwaysverify current medications with the patient. Medication Sig Dispensed Refills Start Date End Date Status levothyroxine (SYNTHROID) 50 MCG tablet Take 50 mcg by mouth daily before breakfast Active raNITIdine (ZANTAC) 300 MG tablet Take 300 mg by mouth once daily Active rosuvastatin (CRESTOR) 10 MG tablet Take 10 mg by mouth once daily Active aspirin (ASPIRIN) 81 MG chew tablet Take 81 mg by mouth once daily Active multivitamin daily tablet Take 1 tablet by mouth daily with food Active eszopiclone (LUNESTA) 3 MG tablet Take 3 mg by mouth at bedtime Active albuterol (PROVENTIL;VENTOLIN ) (5 MG/ML) 0.5% nebulizer solution Inhale 2.5 mg by mouth every 4 hours as needed for Shortness of Breath or Wheezing Active Fluticasone-Umeclid in-Vilant (TRELEGY ELLIPTA) 100-62.5-25 MCG/INH Inhale 1 puff by mouth once daily Active acetaminophen (TYLENOL) 500 MG tablet Take 2 tablets by mouth every 6 hours as needed for Fever or Pain Maximum allowable Acetaminophen amount = 4 Grams (4000 mg) / 24 hours. 05/05/2019 Active Resolved Problems Problem Noted Date Diagnosed Date Resolved Date Pneumothorax after biopsy 05/04/2019 Family History Medical History Relation Name Comments Cancer - Colon Mother Relation Name Status Comments Mother Social History Tobacco Use Types Packs/Day Years Used Date Smoking Tobacco: Former Cigarettes 2 50 1 970 - 2010 Smokeless Tobacco: Never Tobacco Cessation:Counseling Given: Yes Comments:currently vapes Alcohol Use Standard Drinks/Week Comments Yes 21 (1 standard drink = 0.6 oz pu re alcohol) Sex and Gender Information Value Date Recorded Sex Assigned at Not on file Gender Identity Not on file Sexual Orientation Not on file Last Filed Vital Signs Vital Sign Reading Time Taken Comments Blood Pressure 138/73 05/05/2019 12:06 PM CDT Pulse 88 05/05/2019 12:06 PM CDT Temperature 37.2 C (98.9 F) 05/05/2019 12:06 PM CDT Respiratory Rate 18 05/05/2019 12:06 PM CDT Oxygen Saturation 97% 05/05/2019 12:06 PM CDT Inhaled Oxygen Concentration - - Weight 97.5 kg (215 lb) 05/04/2019 9:35 AM CDT Height 182.9 cm (6') 05/04/2019 9:35 AM CDT Body Mass Index 29.16 05/04/2019 9:35 AM CDT Plan of Treatment Health Maintenance Due Date Last Done Comments HEPATITIS C SCREENING 07/27/1963 DTAP/TDAP/TD VACCINES (1 - Tdap) 1966 LUNG CANCER SCREENING 1997 PNEUMOCOCCAL VACCINE 50+ (1 of 1 - PCV) 1997 ZOSTER VACCINE (1 of 2) 1997 Respiratory Syncytial Virus (RSV) Vaccine Pt: or over 60 yrs (1 - 1-dose 75+ series) 2022 COVID-19 VACCINE ( - 2023-2 5 season) 2024 INFLUENZA VACCINE (#1) 2024 7, 10/11/2016, 09/15/2015 DEPRESSION SCREENING 11/28/2024 MEDICARE AWV CALENDAR YEAR 2024 HEPATITIS B VACCINE Aged Out No longe r eligible based on patient's age to complete this topic HIB VACCINE Aged Out No longer eligi ble based on patient's age to complete this topic HPV VACCINE Aged Out No longer eligi ble based on patient's age to complete this topic MENINGOCOCCAL (Group B) VACCINE SHARED DECISION-MAKING Aged Out No longer eligible based on patient's age to complete this topic MENINGOCOCCAL GROUPS A/C/Y/W VACCINE Aged Out No longer eligible b ased on patient's age to complete this topic Advance Directives Documents on File Type Date 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
--- OUTSIDE RECORDS SUMMARY | 2025-02-19 13:53 | XMS_ITS | CONTINUITY OF CARE DOCUMENT ---
Author Name ko connell Address Unknown Organization [facility] Address [address] [place] [address] Phone [phone] Care Team Providers Care Bottom Buffer Name Role Phone ko connell Unavailable Unavailable INSURANCE PROVIDERS Payer name Policy type / Coverage type [place] red libertarian ID [facility] [id number]
== END 2025-02-19 11:36 | disposition home or self-care (01) ==
PROVIDERS: PCP Family Medicine; Visit Provider Family Medicine
DX: E03.9 Hypothyroidism, unspecified (principal)
CPT/HCPCS: 36415; 84443

== ENCOUNTER 2025-07-15 13:10 | Outpatient (CLI) | payer MEDICARE, SELFPAY ==
[2025-07-15 13:49] LABS: Hematocrit 50.9 % (42.0-52.0); Hemoglobin 16.7 g/dL (14.0-18.0); Immature Granulocyte Percent A 0.3 % (0-0.5); Lymphocytes Absolute Auto 1.35 K/mm3 (0.9-3.2); Mean Corpuscular HGB Conc 32.8 g/dl (32-36); Mean Corpuscular Hemoglobin 31.7 pg (26-34); Mean Corpuscular Volume 96.8 fl (80-100); Nucleated Red Blood Cells Absolute Auto 0.000 K/mm3 (0.0-0.012); Nucleated Red Blood Cells Perc 0.0 % (0.0-0.2); Platelet Count Result 201 k/mm3 (150-375); Red Blood Count 5.26 M/mm3 (4.6-6.20); White Blood Count 9.7 K/mm3 (4.5-10.0)
--- OUTSIDE RECORDS SUMMARY | 2025-07-15 14:03 | XMS_ITS | Clinical Summary ---
Author Organization [facility] [employer] Address [address] [place] [address] Care Team Providers Care Federal Appellate Law Clerk Name Role Phone Guicho Edgar MD Primary Care Provider [phone] Source Comments [facility] [employer],non-owned Affiliates and Associated Physician Practices is amultiple site organization consisting of ambulatory clinics and hospital sitesin [place], [place], [place] and [place]. This disclosure is being madepursuant to the Care Everywhere program and may not contain all information available regarding this patient. Last updated 18.[employer] Allergies No known active allergies Medications * Be aware that medications may not be up to date on this document. Alwaysverify current medications with the patient. levothyroxine (SYNTHROID) 50 MCG tablet Take 50 [...] mg by mouth at bedtime Active albuterol (PROVENTIL;MIKY TOLIN) (5 MG/ML) 0.5% nebulizer solution Inhale 2.5 mg by mouth every 4 hours as needed for Shortness of Breath or Wheezing Active Fluticasone-Um eclidin-Vilant (TRELEGY ELLIPTA) 100-62.5-25 MCG/INH Inhale 1 puff by mouth once daily Active acetaminophen (TYLENOL) 500 MG tablet Take 2 tablets by mouth every 6 hours as needed for Fever or Pain Maximum allowable Acetaminophen amount = 4 Grams (4000 mg) / 24 hours. 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 Gender Identity Not on file Sexual Orientation [...] VACCINE ( - 2023-2 5 season) 2024 DEPRESSION SCREENING 11/28/2024 MEDICARE AWV CALENDAR YEAR 2024 INFLUENZA VACCINE (#1) 2025 7, 10/11/2016, 09/15/2015 HEPATITIS B VACCINE Aged Out No longe [...] on patient's age to complete this topic Insurance AETNA AETNA MEDICARE ADV SELF PAY NO INSURANCE Member Subscriber Plan / Payer (Ef fective for All Dates) Name:Brennon Multani Member ID:Not on file Relation to Subscriber:Not on file Name:BRENNON MULTANI Subscriber ID:Not on file Address: [address] [place] [address] Payer ID:Not on file Group ID:Not on file Type:Self Pay Address: [place], [place] SELF PAY NO INSURANCE Member Subscriber Plan / Payer (Ef fective for All Dates) Name:Rangel Brennon R Member ID:Not on file Relation to Subscriber:Not on file Name:BRENNON MULTANI Subscriber ID:Not on file [address] [place] [id number] Payer ID:Not on file Group ID:Not on file Type:Self Pay Address: [place], [place] SELF PAY NO INSURANCE Member Subscriber Plan / Payer (Ef fective for All Dates) Name:Brennon Multani R Member ID:Not on file Relation to Subscriber:Not on file Name:BRENNON MULTANI Subscriber ID:Not on file Address: [place] [address] Payer ID:Not on file Group ID:Not on file Type:Self Pay Address: [place] [place] [address] Advance Directives Documents on File Type Date Recorded 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
[2025-07-15 14:25] LABS: Alanine Aminotransferase 26 U/L (6-50); Albumin Level 4.2 g/dL (3.5-5.1); Alkaline Phosphatase 89 U/L (38-126); Anion Gap 7 mmol/L (4-12); Aspartate Amino Transferase 47 U/L (17-59); Bilirubin,Total 2.0 mg/dL (0.2-1.3); Blood Urea Nitrogen 10 mg/dL (9-20); Calcium 9.2 mg/dL (8.4-10.2); Carbon Dioxide 29 mmol/L (22-30); Chloride 103 mmol/L (98-107); Estimated Glomerular Filt Rate > 60; Glucose 90 mg/dL (65-110); Potassium 4.1 mmol/L (3.4-5.0); Sodium 139 mmol/L (137-145); Total Protein 7.5 g/dL (6.3-8.2)
[2025-07-15 15:58] LABS: Thyroid Stimulating Hormone 0.806 uIU/mL (0.465-4.680)
== END 2025-07-15 13:11 | disposition home or self-care (01) ==
PROVIDERS: PCP Family Medicine; Visit Provider Family Medicine
DX: R93.89 Abnormal findings on diagnostic imaging of other specified body structures (principal); K74.60 Unspecified cirrhosis of liver; D50.9 Iron deficiency anemia, unspecified; E03.9 Hypothyroidism, unspecified; R91.8 Other nonspecific abnormal finding of lung field
CPT/HCPCS: 36415; 80053; 84443; 85025